=== PATIENT | female | born 1935 | race Caucasian/White ===

== ENCOUNTER 2016-10-28 11:07 | Outpatient (CLI) | payer MEDICARE, OTHER ==
[2016-10-28 11:40] LABS: Hemoglobin A1c 6.2 % (4.0-6.0)
[2016-10-28 11:58] LABS: ALT (SGPT) 17 U/L (0-55); AST (SGOT) 15 U/L (5-34); Albumin 3.3 g/dL (3.4-4.8); Alkaline Phosphatase 48 U/L (40-150); Anion Gap 13 mmol/L (10-20); BUN (Urea Nitrogen) 16 mg/dL (9.8-20.1); Bilirubin, Direct 0.3 mg/dL (0.1-0.3); Calc. Creatinine Clearance 0 mL/min (70-130); Calcium 9.1 mg/dL (7.8-10.44); Carbon Dioxide 31 mmol/L (23-31); Cardiac Risk 2.7 (Less than 4.5); Chloride 102 mmol/L (98-107); Cholesterol 149 mg/dL (< 200 Desired); Estimated GFR-MDRD 83; Glucose 134 mg/dL (83-110); HDL Cholesterol 55 mg/dL (>60 Neg Risk); LDL Cholesterol, Calculated 54 mg/dL; Potassium 3.8 mmol/L (3.5-5.1); Protein, Total 5.3 g/dL (5.8-8.1); Sodium 142 mmol/L (136-145); Triglycerides 202 mg/dL (Less than 150)
== END 2016-10-28 11:08 | disposition home or self-care (01) ==
LOC: MADLABBHPM 11:07
PROVIDERS: ATTEND Family Medicine
DX: E11.9 Type 2 diabetes mellitus without complications (principal)
CPT/HCPCS: 36415; 80048; 80061; 80076; 83036

== ENCOUNTER 2017-01-26 10:35 | Outpatient (CLI) | payer MEDICARE, OTHER ==
[2017-01-26 11:35] LABS: ALT (SGPT) 14 U/L (8-55); AST (SGOT) 18 U/L (5-34); Albumin 3.6 g/dL (3.4-4.8); Alkaline Phosphatase 69 U/L (40-150); Anion Gap 14 mmol/L (10-20); BUN (Urea Nitrogen) 12 mg/dL (9.8-20.1); Bilirubin, Direct 0.3 mg/dL (0.1-0.3); Bilirubin, Total 0.8 mg/dL (0.2-1.2); Calc. Creatinine Clearance 0 mL/min (70-130); Calcium 9.7 mg/dL (7.8-10.44); Carbon Dioxide 27 mmol/L (23-31); Cardiac Risk 3.7 (Less than 4.5); Chloride 103 mmol/L (98-107); Cholesterol 187 mg/dL (< 200 Desired); Estimated GFR-MDRD Greater than 90; Glucose 123 mg/dL (83-110); HDL Cholesterol 51 mg/dL (>60 Neg Risk); LDL Cholesterol, Calculated 108 mg/dL; Potassium 4.1 mmol/L (3.5-5.1); Protein, Total 5.9 g/dL (5.8-8.1); Sodium 140 mmol/L (136-145); Triglycerides 138 mg/dL (Less than 150)
[2017-01-26 11:36] LABS: Hemoglobin A1c 6.1 % (4.0-6.0)
== END 2017-01-26 10:36 | disposition home or self-care (01) ==
LOC: MADLABBHPM 10:35
PROVIDERS: ATTEND Family Medicine
DX: E11.9 Type 2 diabetes mellitus without complications (principal); E78.00 Pure hypercholesterolemia, unspecified
CPT/HCPCS: 36415; 80048; 80061; 80076; 83036

== ENCOUNTER 2017-11-25 12:17 | Inpatient (IN) | payer MEDICARE, OTHER ==
[2017-11-25] MEDS ORDERED: Acetaminophen ER (8hr) 650 MG TAB PO PRN ×2 (13:48→13:57)
[2017-11-25] MEDS ORDERED: traMADol HCl 50 MG TAB PO PRN ×3 (13:48→13:59)
[2017-11-25] MEDS: Fish Oil 1,000 MG CAP PO SCH ×2 (14:50→21:33)
[2017-11-25] MEDS: cloNIDine 0.1 MG TAB PO SCH ×2 (14:50→21:32)
[2017-11-25] MEDS: hydrALAZINE 25 MG TAB PO SCH ×2 (14:50→21:33)
[2017-11-25] MEDS ORDERED: Non-Formulary Item 1 EACH (Omega-3 Fatty Acids/Fish Oil [Omega 3 1,000 Mg Softgel] 1 CAP) PO SCH (15:00)
[2017-11-25] MEDS ORDERED: HYDRALAZINE HCL 25 MG PO SCH (15:00)
[2017-11-25] MEDS ORDERED: CLONIDINE HCL 0.2 MG PO SCH (15:00)
[2017-11-25] MEDS: Mometasone Furoate 120 PUFF 220 MCG INH SCH (17:46)
--- NOTE | 2017-11-25 18:33 | HP ---
DATE OF ADMISSION: Admitted to [facility] on 11/25/2017 CHIEF COMPLAINT: Weak. 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 The patient lives at home with her and is inde pendent of her ADLs. The patient had a fall on 11/03/2017. She slipped on a small patch of ice and landed on her right leg. She had immediate pain and swelling just above the knee. She has had a pre vious right total knee replacement years previously. The patient was taken to the emergency room and admitted at [facility] for supracondylar femur fracture. The patient underwent surgical re pair of this fracture by orthopedic surgeon, Dr. Corey Dickson on 11/03/2017. Patient underwent a 14- hole Synthes variable angle locking plate with placement of multiple screws. The patient tolerated t he procedure well and was placed at no weightbearing on the right leg and in a knee immobilizer that has to be worn all the time. The patient did very well in her postop period and was transferred to [facility] where she stayed from 11/09/2017 until 11/25/2017. The patient made go od progress where she was sitting up in a chair, walking very short distance with a walker with help, but was still at no weightbearing. She was still weak and her condition was such that she was still at high fall risk and did not feel like she could be safely managed at home with her as her primary caregiver. Patient has been admitted to [facility] for continued physica l therapy in an effort to improve her strength, general conditioning, her gait, and functional capabi lities. The patient was seen soon after her admission and she was able to relay to me the events of what had happened to her in the fall that had resulted from slipping on a small patch of ice. The patient poonam d she has done very well and is wearing the knee immobilizer all the time, including when showering. Patient will be seeing her surgeon, Dr. Dickson later this month for followup. PAST MEDICAL AND SURGICAL HISTORY: Hospitalized at [facility] for supracondylar femur fra cture of the right leg from 11/03/2017 to 11/09/2017 where she underwent an open reduction and restaurant management internship al fixation with a Synthes variable angle locking plate with multiple screws. She was then hospitali zed at [facility] from 11/09/2017 until 11/25/2017. The patient has diabetes type 2 that has been c ontrolled with diet alone. Her last hemoglobin A1c on 08/03/2017 was 6.0. She has COPD, generalized osteoarthritis, hypertension, hypercholesterolemia, spondylosis of the lumbar spine, diastolic dysfu nction with a previous history of episodes of congestive heart failure during hospitalization for WORK[employer]IST[employer] D acute exacerbation on 09/2016. Her echocardiogram then showed an ejection fraction of 55%. The konrad marquez has had a right total knee replacement in 12/2016, cyst removed from the right breast benign, l eft femoral head replacement on 12/2008. The patient has glaucoma. MEDICATIONS: Acetaminophen 325 mg 2 every 4 hours as needed, aspirin 81 mg daily, atorvastatin 20 mg daily, Lumigan 0.03% 1 drop in the eyes at bedtime, calcium carbonate 500 mg 2 daily, clonidine 0.2 mg t.i.d., Lovenox 40 mg subcu daily, fluticasone 2 puffs in each nostrum b.i.d., furosemide 40 mg da leandro, hydralazine 25 mg t.i.d. and previously at home was on 100 mg t.i.d., lisinopril 20 mg b.i.d., m etoprolol tartrate 100 mg b.i.d., [place] 3 fatty acid/fish oil 1 t.i.d., pantoprazole 40 mg daily, Sys tane eyedrops 1 drop in each eye daily, tramadol 50 mg 1-2 every 6 hours as needed for pain, PreserVi rohit 1 tab daily. ALLERGIES: NORVASC causes swelling; VICODIN causes nausea; Fentanyl, unknown cause; Meloxicam causes nausea, MORPHINE. REVIEW OF SYSTEMS: General: The patient does not think she has had any recent weight loss. She poonam d she has had no fever. Head and Neck: No complaints. Pulmonary: No complaints. Cardiovascular: No complaints. Gastrointestinal: No complaints. Genitourinary: No complaints. Musculoskeletal: The patient requires assistance with transfer as she can ambulate very short distance with assistanc e and a walker. She is nonweightbearing on the right leg. Prior to her admission and fractures, she was independent of all her ADLs. HABITS: Alcohol none. Tobacco none. SOCIAL HISTORY: Patient lives at home with her . CODE STATUS: FULL CODE. PHYSICAL EXAMINATION: GENERAL: Shows a very pleasant 82-year-old white female who is alert, oriented x3, appears very comf ortable, in no distress. VITAL SIGNS: Temperature 97.9, pulse 68, respirations 20, O2 saturation 94% on room air, blood press ure 131/63. Her weight is 204. Her height is 62 inches. HEAD: Normocephalic and atraumatic. EYES: Pupils are equal, round, and reactive. Sclerae nonicteric. EARS: Blocked by some cerumen. NOSE: Normal. MOUTH AND THROAT: Normal. NECK: Carotids are equal and strong, no bruits. Thyroid not enlarged. LUNGS: Clear. HEART: Regular rate. No murmurs. ABDOMEN: Soft with no organomegaly, nor areas of tenderness. EXTREMITIES: No edema. Her right leg has a long leg knee immobilizer. Nurses had taken this off gama garcia to photograph the incision. Her incision was healing well. The saw were removed 2 days ag o. There is no drainage, no redness. NEUROLOGIC: Patient is alert and oriented x3. She is weak in the right leg from the recent fracture . Otherwise, there is no focal weakness. IMPRESSION: 1. Generalized weakness. A. Requires assistance with ADLs. B. Complicated by gait abnormality with nonweightbearing on the right leg. C. Secondary to a fall and supracondylar fracture of the right femur with open reduction internal fi xation on 11/03/2017. 2. Supracondylar fracture of the right femur. A. Secondary to a fall on a patch of ice. B. Required open reduction internal fixation with a Synthes variable angle locking plate and multipl e screws on 11/03/[address] Corey Dickson, orthopedic surgeon. C. Mobilized in a long leg knee immobilizer. D. No weightbearing with the right leg. 3. Hypertension. 4. Chronic obstructive pulmonary disease. 5. Diabetes mellitus type 2. A. Diet controlled. Hemoglobin A1c of 6.0 on 08/03/2017. 6. Generalized osteoarthritis. 7. Hypercholesterolemia. 8. Diastolic dysfunction. A. No evidence of congestive heart failure. 9. Spondylosis of the lumbar spine. 10. Obesity. PLAN: The patient has been admitted to [facility] for purpose of continuation of physical therapy and occupational therapy. The patient is at no weightbearing on the right leg and her functional capabilities such that she cannot be safely managed in the home and feel like with fur ther therapy, fracture heals and she is allowed weightbearing that she showed marked and continued im provement. We will continue the deep venous thrombosis prophylaxis. Continue the knee immobilizer. The patient will see Dr. Dickson in follow up. Continue home medications. CODE STATUS: FULL CODE. See orders.
[2017-11-25] MEDS ORDERED: Non-Formulary Item 1 EACH (Metoprolol Tartrate [Lopressor] 100 MG) PO SCH (21:00)
[2017-11-25] MEDS ORDERED: Non-Formulary Item 1 EACH (Atorvastatin Calcium [Lipitor] 20 MG) PO SCH (21:00)
[2017-11-25] MEDS ORDERED: Non-Formulary Item 1 EACH (Bimatoprost [Lumigan 0.01% Ophth Soln] 1 DROP) EA EYE SCH (21:00)
[2017-11-25] MEDS ORDERED: FLUTICASONE PROPIONATE INH SCH (21:00)
[2017-11-25] MEDS ORDERED: Non-Formulary Item 1 EACH (Lisinopril [Lisinopril] 20 MG) PO SCH (21:00)
[2017-11-25] MEDS: Atorvastatin Calcium 10 MG TAB PO SCH (21:32)
[2017-11-25] MEDS: Lisinopril 10 MG TAB PO SCH (21:34)
[2017-11-25] MEDS: Latanoprost 0.005% Ophth Soln 2.5 ml Bottle EA EYE SCH (21:35)
[2017-11-25] MEDS: Metoprolol Tartrate 50 MG TAB PO SCH (21:36)
[2017-11-26 05:10] LABS: #Basophils 0.1 thou/uL (0.0-0.2); #Eosinphils 0.4 thou/uL (0.0-0.7); #Lymphocytes 2.7 thou/uL (1.20-3.40); #Monocytes 0.9 thou/uL (0.11-0.59); #Neutrophils 8.9 thou/uL (1.40-6.50); %Eosinophils 2.7 % (0.0-10.0); %Lymphocytes 20.9 % (21.0-51.0); %Monocytes 6.9 % (0.0-10.0); %Neutrophils 68.5 % (42.0-75.0); Hemoglobin 10.1 g/dL (12.0-16.0); Mean Corpuscular Hemoglobin 25.9 pg (27.0-31.0); Mean Corpuscular Volume 83.4 fl (81.0-99.0); Mean Platelet Volume 8.8 fL (7.4-10.4); Platelet Count 371 thou/uL (130-400); RBC Distribution Width 17.8 % (11.5-14.5); Red Blood Cell (RBC) Count 3.89 mill/uL (4.20-5.40)
[2017-11-26 05:24] LABS: ALT (SGPT) 14 U/L (8-55); AST (SGOT) 14 U/L (5-34); Albumin 3.2 g/dL (3.4-4.8); Alkaline Phosphatase 120 U/L (40-150); Anion Gap 10 mmol/L (10-20); BUN (Urea Nitrogen) 14 mg/dL (9.8-20.1); Bilirubin, Total 0.7 mg/dL (0.2-1.2); Calc. Creatinine Clearance 107 mL/min (70-130); Calcium 9.5 mg/dL (7.8-10.44); Carbon Dioxide 32 mmol/L (23-31); Chloride 105 mmol/L (98-107); Estimated GFR-MDRD Greater than 90; Globulin 2.7 g/dL (2.4-3.5); Glucose 127 mg/dL (83-110); Potassium 4.6 mmol/L (3.5-5.1); Protein, Total 5.9 g/dL (6.0-8.3); Sodium 142 mmol/L (136-145)
[2017-11-26] MEDS: cloNIDine 0.1 MG TAB PO SCH ×3 (09:41→21:00)
[2017-11-26] MEDS: Metoprolol Tartrate 50 MG TAB PO SCH ×2 (09:42→21:01)
[2017-11-26] MEDS: Aspirin 81 mg Enteric Coated Tablet PO SCH (09:42)
[2017-11-26] MEDS: hydrALAZINE 25 MG TAB PO SCH ×3 (09:43→21:02)
[2017-11-26] MEDS: Lisinopril 10 MG TAB PO SCH ×2 (09:43→21:01)
[2017-11-26] MEDS: Calcium Carbonate 500 MG ChewTAB PO SCH (09:43)
[2017-11-26] MEDS: Enoxaparin Sodium 40 MG/0.4 ML SYRINGE SC SCH (09:43)
[2017-11-26] MEDS: Fish Oil 1,000 MG CAP PO SCH ×3 (09:43→21:00)
[2017-11-26] MEDS: Furosemide 40 MG TAB PO SCH (09:43)
[2017-11-26] MEDS ORDERED: PEG EA EYE SCH (12:00)
[2017-11-26] MEDS ORDERED: EAC EA EYE SCH (12:00)
[2017-11-26] MEDS ORDERED: [UNRECOGNIZED DRUG - OTHER] EA EYE SCH (12:00)
[2017-11-26] MEDS ORDERED: PROPYLENE GLYCOL EA EYE SCH (12:00)
[2017-11-26] MEDS: Polyethylene Glycol OPTH DROP 15 ML BOT EA EYE SCH (12:20)
[2017-11-26 15:54] LABS: Hemoglobin A1c 5.6 % (4.0-6.0)
[2017-11-26] MEDS: Atorvastatin Calcium 10 MG TAB PO SCH (21:00)
[2017-11-26] MEDS: Latanoprost 0.005% Ophth Soln 2.5 ml Bottle EA EYE SCH (21:02)
[2017-11-27] MEDS: Enoxaparin Sodium 40 MG/0.4 ML SYRINGE SC SCH (08:11)
[2017-11-27] MEDS: Fish Oil 1,000 MG CAP PO SCH ×3 (08:12→20:22)
[2017-11-27] MEDS: Furosemide 40 MG TAB PO SCH (08:12)
[2017-11-27] MEDS: Aspirin 81 mg Enteric Coated Tablet PO SCH (08:12)
[2017-11-27] MEDS: Calcium Carbonate 500 MG ChewTAB PO SCH (08:13)
[2017-11-27] MEDS: Lisinopril 10 MG TAB PO SCH ×2 (08:13→20:23)
[2017-11-27] MEDS: Metoprolol Tartrate 50 MG TAB PO SCH ×2 (08:14→20:22)
[2017-11-27] MEDS: hydrALAZINE 25 MG TAB PO SCH ×3 (08:14→20:22)
[2017-11-27] MEDS: cloNIDine 0.1 MG TAB PO SCH ×3 (08:14→20:22)
[2017-11-27] MEDS: Polyethylene Glycol OPTH DROP 15 ML BOT EA EYE SCH (12:09)
[2017-11-27] MEDS: Mometasone Furoate 120 PUFF 220 MCG INH SCH ×2 (18:40→18:44)
[2017-11-27] MEDS: Atorvastatin Calcium 10 MG TAB PO SCH (20:22)
[2017-11-27] MEDS: Latanoprost 0.005% Ophth Soln 2.5 ml Bottle EA EYE SCH (20:23)
--- NOTE | 2017-11-28 08:05 | PRG ---
DATE OF SERVICE: 11/28/2017 SUBJECTIVE: The patient said she is feeling good this morning. She had a good night. Yesterday, jakub fuentes got up, was assisted up in a Yamileth chair and was able to roll around the facility. The patient's pa in is controlled. OBJECTIVE: The patient is sitting up in bed. She is alert, appears very comfortable in no distress. Her temperature 98.6, pulse 69, respirations 16, O2 sat 94% on room air, blood pressure 146/65. Micaela ngs are clear. Heart, regular rate. Lower extremities, there is no edema. Right leg is immobilized in a long leg knee immobilizer. Her FBS on the morning of 11/26/2017 was 127. Hemoglobin A1c 5.6. ASSESSMENT: 1. Generalized weakness. A. Requires assistance with ADLs. B. Complicated by gait abnormality with nonweightbearing on the right leg. C. Secondary to a fall and supracondylar fracture of the right femur with open reduction internal fi xation on 11/03/2017. D. Improved as of 11/28/2017. 2. Supracondylar fracture of the right femur. A. Secondary to a fall on a patch of ice. B. Required open reduction internal fixation with a Synthes variable angle locking plate and multipl e screws on 11/03/[address] Corey Dickson, orthopedic surgeon. C. Using a long leg knee immobilizer. D. No weightbearing with the right leg. 3. Hypertension. 4. Chronic obstructive pulmonary disease. 5. Diabetes mellitus type 2. A. Diet controlled. Hemoglobin A1c 5.6 as of 11/26/2017. 6. Generalized osteoarthritis. 7. Hypercholesterolemia. 8. Diastolic dysfunction. A. No evidence of congestive heart failure. 9. Spondylosis of the lumbar spine. 10. Obesity. PLAN: Continue present care. Continue PT and OT.
[2017-11-28] MEDS: Aspirin 81 mg Enteric Coated Tablet PO SCH (09:57)
[2017-11-28] MEDS: cloNIDine 0.1 MG TAB PO SCH ×3 (09:57→20:35)
[2017-11-28] MEDS: Calcium Carbonate 500 MG ChewTAB PO SCH (09:57)
[2017-11-28] MEDS: hydrALAZINE 25 MG TAB PO SCH ×3 (09:57→20:36)
[2017-11-28] MEDS: Furosemide 40 MG TAB PO SCH (09:58)
[2017-11-28] MEDS: Lisinopril 10 MG TAB PO SCH ×2 (09:58→20:35)
[2017-11-28] MEDS: Fish Oil 1,000 MG CAP PO SCH ×3 (09:58→20:35)
[2017-11-28] MEDS: Metoprolol Tartrate 50 MG TAB PO SCH ×2 (09:58→20:35)
[2017-11-28] MEDS: Enoxaparin Sodium 40 MG/0.4 ML SYRINGE SC SCH (09:59)
[2017-11-28] MEDS: Polyethylene Glycol OPTH DROP 15 ML BOT EA EYE SCH (13:32)
[2017-11-28] MEDS: Mometasone Furoate 120 PUFF 220 MCG INH SCH ×2 (18:12→18:13)
[2017-11-28] MEDS: Latanoprost 0.005% Ophth Soln 2.5 ml Bottle EA EYE SCH (20:35)
[2017-11-28] MEDS: Atorvastatin Calcium 10 MG TAB PO SCH (20:35)
[2017-11-29] MEDS: Fish Oil 1,000 MG CAP PO SCH ×3 (08:35→20:40)
[2017-11-29] MEDS: Vit A,C & E/Lutein/Minerals Tablet PO SCH ×2 (08:36→20:40)
[2017-11-29] MEDS: Calcium Carbonate 500 MG ChewTAB PO SCH (08:36)
[2017-11-29] MEDS: cloNIDine 0.1 MG TAB PO SCH ×3 (08:36→20:41)
[2017-11-29] MEDS: Aspirin 81 mg Enteric Coated Tablet PO SCH (08:36)
[2017-11-29] MEDS: Metoprolol Tartrate 50 MG TAB PO SCH ×2 (08:36→20:40)
[2017-11-29] MEDS: Furosemide 40 MG TAB PO SCH (08:36)
[2017-11-29] MEDS: hydrALAZINE 25 MG TAB PO SCH ×3 (08:37→20:41)
[2017-11-29] MEDS: Enoxaparin Sodium 40 MG/0.4 ML SYRINGE SC SCH (08:37)
[2017-11-29] MEDS: Lisinopril 10 MG TAB PO SCH ×2 (08:37→20:41)
[2017-11-29] MEDS: Ketoconazole 2% Cream 15 gm Tube TOP SCH (08:40)
--- NOTE | 2017-11-29 08:51 | PRG ---
DATE OF SERVICE: 11/29/2017 SUBJECTIVE: The patient said she has been doing fine. She said ordinarily she takes this PreserVisi on vitamin twice a day at home. She has not been receiving this while in the hospital. The patient also says that home she uses ketoconazole cream on her face for seborrheic dermatitis. She is not re ceiving this and her face is starting to get a little scaly. The patient is not able to walk any sin ce she is nonweightbearing on the right leg. She is doing a lot more upper body strengthening up in a chair for longer periods and is helping with transferring, pivoting on the left leg. She is feelin g stronger. OBJECTIVE: The patient is sitting up in a wheelchair in the Physical Therapy Department doing some u pper body strengthening. She is alert, appears very comfortable in no distress. Her temperature is 97.9, pulse 68, respirations 18, O2 sat 96%, blood pressure 154/67. Lungs are clear. Heart, regular rate. Extremities; there is no edema. The patient has a long leg knee immobilizer on the right leg. Skin; the patient's face has a little scaling, some over the forehead and some on the nasolabial fold from a seborrheic dermatitis. ASSESSMENT: 1. Generalized weakness. A. Requires assistance with ADLs. B. Complicated by gait abnormality with nonweightbearing on the right leg. C. Secondary to a fall and supracondylar fracture of the right femur with open reduction interna l fixation on 11/03/2017. D. Improved as of 11/29/2017. 2. Supracondylar fracture of the right femur. A. Secondary to a fall on a patch of ice. B. Required open reduction internal fixation with a Synthes variable angle locking plate and multiple screws on 11/03/[address] Corey Dickson, orthopedic surgeon. C. Using a long leg knee immobilizer. D. No weightbearing with the right leg. 3. Hypertension. 4. Chronic obstructive pulmonary disease. 5. Diabetes mellitus type 2. A. Diet controlled. Hemoglobin A1c 5.6 as of 11/26/2017. 6. Generalized osteoarthritis. 7. Hypercholesterolemia. 8. Diastolic dysfunction. A. No evidence of acute congestive heart failure as of 11/29/2017. 9. Spondylosis of the lumbar spine. 10. Obesity. 11. Seborrheic dermatitis. PLAN: Continue physical therapy. Continue present care. Will restart the patient's PreserVision vi tamins twice a day. We will also place the patient back on the ketaconazole cream to her face daily.
[2017-11-29] MEDS: Polyethylene Glycol OPTH DROP 15 ML BOT EA EYE SCH (12:02)
[2017-11-29] MEDS: Mometasone Furoate 120 PUFF 220 MCG INH SCH (18:07)
[2017-11-29] MEDS: Latanoprost 0.005% Ophth Soln 2.5 ml Bottle EA EYE SCH (20:40)
[2017-11-29] MEDS: Atorvastatin Calcium 10 MG TAB PO SCH (20:40)
[2017-11-30] MEDS: Calcium Carbonate 500 MG ChewTAB PO SCH (07:57)
[2017-11-30] MEDS: Lisinopril 10 MG TAB PO SCH ×2 (07:58→20:38)
[2017-11-30] MEDS: cloNIDine 0.1 MG TAB PO SCH ×3 (07:58→20:39)
[2017-11-30] MEDS: hydrALAZINE 25 MG TAB PO SCH ×3 (07:58→20:39)
[2017-11-30] MEDS: Aspirin 81 mg Enteric Coated Tablet PO SCH (07:59)
[2017-11-30] MEDS: Furosemide 40 MG TAB PO SCH (07:59)
[2017-11-30] MEDS: Vit A,C & E/Lutein/Minerals Tablet PO SCH ×2 (07:59→20:39)
[2017-11-30] MEDS: Metoprolol Tartrate 50 MG TAB PO SCH ×2 (07:59→20:37)
[2017-11-30] MEDS: Fish Oil 1,000 MG CAP PO SCH ×3 (07:59→20:36)
[2017-11-30] MEDS: Enoxaparin Sodium 40 MG/0.4 ML SYRINGE SC SCH (07:59)
[2017-11-30] MEDS: Ketoconazole 2% Cream 15 gm Tube TOP SCH (08:00)
[2017-11-30] MEDS: Polyethylene Glycol OPTH DROP 15 ML BOT EA EYE SCH (11:48)
[2017-11-30] MEDS: Mometasone Furoate 120 PUFF 220 MCG INH SCH (17:37)
[2017-11-30] MEDS: Atorvastatin Calcium 10 MG TAB PO SCH (20:37)
[2017-11-30] MEDS: Latanoprost 0.005% Ophth Soln 2.5 ml Bottle EA EYE SCH (20:40)
--- NOTE | 2017-12-01 08:36 | PRG ---
DATE OF SERVICE: 12/01/2017 SUBJECTIVE: The patient said she is doing good. She is getting stronger. She began working out ROXIMITY with her upper extremities. There is still no weightbearing on the right leg. Her leg is not hurt ing her. She is walking very short distance with a rolling walker. No weightbearing on the right le g, but requires maximum assistance and only has gone up to 6 feet and this is not every day, but her general strength has improved. OBJECTIVE: The patient is sitting up in a chair with her right leg propped up with a knee immobilize r own. She is alert, talkative, appears very comfortable in no distress. Her temperature is 97.0, p ulse 61, respirations 22, O2 sat 94% on room air, blood pressure 114/57. Her lungs are clear. Heart , regular rate. Right leg, there is no edema. The patient has her long leg knee immobilizer on. ASSESSMENT: 1. Generalized weakness. A. Requires assistance with ADLs. B. Complicated by gait abnormality with nonweightbearing on the right leg. C. Secondary to a fall and supracondylar fracture of the right femur with open reduction interna l fixation on 11/03/2017. D. Overall strength is improving, but still no weightbearing on the right leg and only able to a mbulate just a few feet with a rolling walker and maximum assistance as of 12/01/2017. 2. Supracondylar fracture of the right femur. A. Secondary to a fall on a patch of ice. B. Required open reduction internal fixation with a Synthes variable angle locking plate and multiple screws on 11/03/[address] Corey Dickson, orthopedic surgeon. C. Using a long leg knee immobilizer. D. No weightbearing with the right leg. 3. Hypertension. 4. Chronic obstructive pulmonary disease. 5. Diabetes mellitus type 2. A. Diet controlled. Hemoglobin A1c 5.6 as of 11/26/2017. 6. Generalized osteoarthritis. 7. Hypercholesterolemia. 8. Diastolic dysfunction. A. No evidence of acute congestive heart failure as of 11/29/2017. 9. Spondylosis of the lumbar spine. 10. Obesity. 11. Seborrheic dermatitis. PLAN: Continue present care. Continue physical therapy. The patient is due to be rechecked by orth opedic surgeon in about 2 weeks.
[2017-12-01] MEDS: Calcium Carbonate 500 MG ChewTAB PO SCH (08:56)
[2017-12-01] MEDS: Vit A,C & E/Lutein/Minerals Tablet PO SCH ×2 (08:57→20:45)
[2017-12-01] MEDS: hydrALAZINE 25 MG TAB PO SCH ×3 (08:57→20:47)
[2017-12-01] MEDS: Metoprolol Tartrate 50 MG TAB PO SCH ×2 (08:57→20:46)
[2017-12-01] MEDS: Aspirin 81 mg Enteric Coated Tablet PO SCH (08:57)
[2017-12-01] MEDS: Lisinopril 10 MG TAB PO SCH ×2 (08:58→20:46)
[2017-12-01] MEDS: cloNIDine 0.1 MG TAB PO SCH ×3 (08:58→20:44)
[2017-12-01] MEDS: Fish Oil 1,000 MG CAP PO SCH ×3 (08:58→20:47)
[2017-12-01] MEDS: Furosemide 40 MG TAB PO SCH (08:58)
[2017-12-01] MEDS: Ketoconazole 2% Cream 15 gm Tube TOP SCH (08:59)
[2017-12-01] MEDS: Enoxaparin Sodium 40 MG/0.4 ML SYRINGE SC SCH (08:59)
[2017-12-01] MEDS: Polyethylene Glycol OPTH DROP 15 ML BOT EA EYE SCH (13:16)
[2017-12-01] MEDS: Mometasone Furoate 120 PUFF 220 MCG INH SCH (18:02)
[2017-12-01] MEDS: Atorvastatin Calcium 10 MG TAB PO SCH (20:45)
[2017-12-01] MEDS: Latanoprost 0.005% Ophth Soln 2.5 ml Bottle EA EYE SCH (20:50)
[2017-12-02] MEDS: Calcium Carbonate 500 MG ChewTAB PO SCH (08:27)
[2017-12-02] MEDS: Vit A,C & E/Lutein/Minerals Tablet PO SCH ×2 (08:28→20:35)
[2017-12-02] MEDS: cloNIDine 0.1 MG TAB PO SCH ×3 (08:28→20:36)
[2017-12-02] MEDS: Fish Oil 1,000 MG CAP PO SCH ×3 (08:28→20:34)
[2017-12-02] MEDS: Aspirin 81 mg Enteric Coated Tablet PO SCH (08:28)
[2017-12-02] MEDS: Lisinopril 10 MG TAB PO SCH ×2 (08:28→20:35)
[2017-12-02] MEDS: Metoprolol Tartrate 50 MG TAB PO SCH ×2 (08:29→20:37)
[2017-12-02] MEDS: Enoxaparin Sodium 40 MG/0.4 ML SYRINGE SC SCH (08:29)
[2017-12-02] MEDS: hydrALAZINE 25 MG TAB PO SCH ×3 (08:29→20:37)
[2017-12-02] MEDS: Furosemide 40 MG TAB PO SCH (08:29)
[2017-12-02] MEDS: Ketoconazole 2% Cream 15 gm Tube TOP SCH (08:30)
--- NOTE | 2017-12-02 09:50 | PRG ---
DATE OF SERVICE: 12/02/2017 SUBJECTIVE: The patient says she is doing good. She is doing better with her upper body strengtheni ng. She is still at no weightbearing on the right leg, so her ability to walk is severely impaired a t present. Her general strength though has improved. OBJECTIVE: The patient is sitting up in wheelchair. She is comfortable in no distress. Her temper ature 98.2, pulse 69, respirations 16, O2 sat 94% on room air, blood pressure 146/65. Lungs are clear. Heart, regular rate. Lower extremities, no edema. Right leg is in a long leg knee immobilizer, it fits well. ASSESSMENT: 1. Generalized weakness. A. Requires assistance with ADLs. B. Complicated by gait abnormality with nonweightbearing on the right leg. C. Secondary to a fall and supracondylar fracture of the right femur with open reduction interna l fixation on 11/03/2017. D. Overall strength is improving, but still no weightbearing on the right leg and only able to a mbulate just a few feet with a rolling walker and maximum assistance as of 12/02/2017. 2. Supracondylar fracture of the right femur. A. Secondary to a fall on a patch of ice. B. Required open reduction internal fixation with a Synthes variable angle locking plate and multiple screws on 11/03/[address] Corey Dickson, orthopedic surgeon. C. Using a long leg knee immobilizer. D. No weightbearing with the right leg. 3. Hypertension. 4. Chronic obstructive pulmonary disease. 5. Diabetes mellitus type 2. A. Diet controlled. Hemoglobin A1c 5.6 as of 11/26/2017. 6. Generalized osteoarthritis. 7. Hypercholesterolemia. 8. Diastolic dysfunction. A. No evidence of acute congestive heart failure as of 12/02/2017. 9. Spondylosis of the lumbar spine. 10. Obesity. 11. Seborrheic dermatitis. PLAN: Continue physical therapy. The patient is scheduled to see Dr. Dickson in follow up on the .
[2017-12-02] MEDS: Polyethylene Glycol OPTH DROP 15 ML BOT EA EYE SCH (12:03)
[2017-12-02] MEDS: Mometasone Furoate 120 PUFF 220 MCG INH SCH (17:43)
[2017-12-02] MEDS: Atorvastatin Calcium 10 MG TAB PO SCH (20:34)
[2017-12-02] MEDS: Latanoprost 0.005% Ophth Soln 2.5 ml Bottle EA EYE SCH (20:38)
[2017-12-03] MEDS: Aspirin 81 mg Enteric Coated Tablet PO SCH (08:38)
[2017-12-03] MEDS: Furosemide 40 MG TAB PO SCH (08:38)
[2017-12-03] MEDS: hydrALAZINE 25 MG TAB PO SCH ×3 (08:39→20:44)
[2017-12-03] MEDS: Metoprolol Tartrate 50 MG TAB PO SCH ×2 (08:39→20:43)
[2017-12-03] MEDS: Fish Oil 1,000 MG CAP PO SCH ×3 (08:39→20:42)
[2017-12-03] MEDS: cloNIDine 0.1 MG TAB PO SCH ×3 (08:39→20:44)
[2017-12-03] MEDS: Calcium Carbonate 500 MG ChewTAB PO SCH (08:42)
[2017-12-03] MEDS: Vit A,C & E/Lutein/Minerals Tablet PO SCH ×2 (08:42→20:42)
[2017-12-03] MEDS: Ketoconazole 2% Cream 15 gm Tube TOP SCH (08:42)
[2017-12-03] MEDS: Lisinopril 10 MG TAB PO SCH ×2 (08:43→20:43)
[2017-12-03] MEDS: Enoxaparin Sodium 40 MG/0.4 ML SYRINGE SC SCH (08:43)
[2017-12-03] MEDS: Polyethylene Glycol OPTH DROP 15 ML BOT EA EYE SCH (11:43)
[2017-12-03] MEDS: Mometasone Furoate 120 PUFF 220 MCG INH SCH (18:04)
[2017-12-03] MEDS: Atorvastatin Calcium 10 MG TAB PO SCH (20:42)
[2017-12-03] MEDS: Latanoprost 0.005% Ophth Soln 2.5 ml Bottle EA EYE SCH (20:45)
[2017-12-04] MEDS: Calcium Carbonate 500 MG ChewTAB PO SCH (08:41)
[2017-12-04] MEDS: Lisinopril 10 MG TAB PO SCH ×2 (08:41→20:06)
[2017-12-04] MEDS: Enoxaparin Sodium 40 MG/0.4 ML SYRINGE SC SCH (08:41)
[2017-12-04] MEDS: Ketoconazole 2% Cream 15 gm Tube TOP SCH (08:41)
[2017-12-04] MEDS: Aspirin 81 mg Enteric Coated Tablet PO SCH (08:42)
[2017-12-04] MEDS: Furosemide 40 MG TAB PO SCH (08:42)
[2017-12-04] MEDS: cloNIDine 0.1 MG TAB PO SCH ×3 (08:42→20:06)
[2017-12-04] MEDS: Metoprolol Tartrate 50 MG TAB PO SCH ×2 (08:42→20:06)
[2017-12-04] MEDS: hydrALAZINE 25 MG TAB PO SCH ×3 (08:42→20:05)
[2017-12-04] MEDS: Vit A,C & E/Lutein/Minerals Tablet PO SCH ×2 (08:42→20:06)
[2017-12-04] MEDS: Fish Oil 1,000 MG CAP PO SCH ×3 (08:43→20:06)
[2017-12-04] MEDS: Polyethylene Glycol OPTH DROP 15 ML BOT EA EYE SCH (11:54)
[2017-12-04] MEDS: Mometasone Furoate 120 PUFF 220 MCG INH SCH (18:02)
[2017-12-04] MEDS: Atorvastatin Calcium 10 MG TAB PO SCH (20:06)
[2017-12-04] MEDS: Latanoprost 0.005% Ophth Soln 2.5 ml Bottle EA EYE SCH (20:07)
[2017-12-05] MEDS: Calcium Carbonate 500 MG ChewTAB PO SCH (08:09)
--- NOTE | 2017-12-05 09:22 | PRG ---
DATE OF SERVICE: 12/05/2017 SUBJECTIVE: The patient thinks she is doing fine. She still at nonweightbearing on the right leg an d still wears her long leg knee immobilizer. Nurses reported that she was complaining of some burnin g with urination. A UA will be checked. The patient due to see Dr. Dickson back in follow up next we ek. OBJECTIVE: The patient is lying in bed, looks very comfortable, in no distress. Her vital signs mira ws a temperature of 98.3, blood pressure 126/65, pulse 71, respirations 20, O2 sat 93% on room air. Lungs are clear. Heart, regular rate. Extremities, no edema. The patient wearing her long leg knee immobilizer. ASSESSMENT: 1. Generalized weakness. A. Requires assistance with ADLs. B. Complicated by gait abnormality with nonweightbearing on the right leg. C. Secondary to a fall and supracondylar fracture of the right femur with open reduction interna l fixation on 11/03/2017. D. Overall strength is improving, but still no weightbearing on the right leg and only able to a mbulate just a few feet with a rolling walker and maximum assistance as of 12/05/2017. 2. Supracondylar fracture of the right femur. A. Secondary to a fall on a patch of ice. B. Required open reduction internal fixation with a Synthes variable angle locking plate and multiple screws on 11/03/[address] Corey Dickson, orthopedic surgeon. C. Using a long leg knee immobilizer. D. No weightbearing with the right leg. 3. Hypertension. 4. Chronic obstructive pulmonary disease. 5. Diabetes mellitus type 2. A. Diet controlled. Hemoglobin A1c 5.6 as of 11/26/2017. 6. Generalized osteoarthritis. 7. Hypercholesterolemia. 8. Diastolic dysfunction. A. No evidence of acute congestive heart failure as of 12/05/2017. 9. Spondylosis of the lumbar spine. 10. Obesity. 11. Seborrheic dermatitis. PLAN: Continue physical therapy. The patient due to see Dr. Dickson in followup on 12/14/2017. Will check a UA.
[2017-12-05] MEDS: Aspirin 81 mg Enteric Coated Tablet PO SCH (09:39)
[2017-12-05] MEDS: cloNIDine 0.1 MG TAB PO SCH ×3 (09:39→20:35)
[2017-12-05] MEDS: Enoxaparin Sodium 40 MG/0.4 ML SYRINGE SC SCH (09:39)
[2017-12-05] MEDS: Furosemide 40 MG TAB PO SCH (09:40)
[2017-12-05] MEDS: Fish Oil 1,000 MG CAP PO SCH ×3 (09:40→20:17)
[2017-12-05] MEDS: Ketoconazole 2% Cream 15 gm Tube TOP SCH (09:41)
[2017-12-05] MEDS: hydrALAZINE 25 MG TAB PO SCH ×3 (09:41→20:36)
[2017-12-05] MEDS: Lisinopril 10 MG TAB PO SCH ×2 (09:41→20:15)
[2017-12-05] MEDS: Metoprolol Tartrate 50 MG TAB PO SCH ×2 (09:42→20:36)
[2017-12-05] MEDS: Vit A,C & E/Lutein/Minerals Tablet PO SCH ×2 (09:43→20:15)
[2017-12-05] MEDS: Polyethylene Glycol OPTH DROP 15 ML BOT EA EYE SCH (12:00)
[2017-12-05 14:56] LABS: Bilirubin Negative (Negative); Blood, Urine Small (Negative); Clarity Hazy (Clear); Glucose, Urine (Dipstick) Negative (Negative); Leukocyte Moderate (Negative); Nitrite Negative (Negative); Protein, Urine (Dipstick) 100 mg/dL (Neg-Trace); Urobilinogen 0.2 mg/dL (0.2-1.0)
[2017-12-05 14:59] LABS: Bacteria/HPF 1+ HPF (None Seen); RBC/HPF 0-3 HPF (0-3); Squamous Epithelial 0-3 HPF (0-3)
[2017-12-05] MEDS: Mometasone Furoate 120 PUFF 220 MCG INH SCH (18:13)
[2017-12-05] MEDS: Latanoprost 0.005% Ophth Soln 2.5 ml Bottle EA EYE SCH (20:18)
[2017-12-05] MEDS: Atorvastatin Calcium 10 MG TAB PO SCH (20:34)
[2017-12-06] MEDS: Metoprolol Tartrate 50 MG TAB PO SCH ×2 (08:39→20:07)
[2017-12-06] MEDS: Aspirin 81 mg Enteric Coated Tablet PO SCH (08:39)
[2017-12-06] MEDS: Calcium Carbonate 500 MG ChewTAB PO SCH (08:39)
[2017-12-06] MEDS: Clotrimazole 1% Cream 15 GM TUBE TOP SCH (08:39)
[2017-12-06] MEDS: Fish Oil 1,000 MG CAP PO SCH ×3 (08:40→20:06)
[2017-12-06] MEDS: Furosemide 40 MG TAB PO SCH (08:40)
[2017-12-06] MEDS: cloNIDine 0.1 MG TAB PO SCH ×3 (08:40→20:09)
[2017-12-06] MEDS: Vit A,C & E/Lutein/Minerals Tablet PO SCH ×2 (08:40→20:06)
[2017-12-06] MEDS: Lisinopril 10 MG TAB PO SCH ×2 (08:40→20:07)
[2017-12-06] MEDS: Enoxaparin Sodium 40 MG/0.4 ML SYRINGE SC SCH (08:41)
[2017-12-06] MEDS: hydrALAZINE 25 MG TAB PO SCH ×3 (08:41→20:09)
[2017-12-06] MEDS: Ketoconazole 2% Cream 15 gm Tube TOP SCH (08:41)
[2017-12-06] MEDS: Polyethylene Glycol OPTH DROP 15 ML BOT EA EYE SCH (12:35)
[2017-12-06] MEDS: Mometasone Furoate 120 PUFF 220 MCG INH SCH (18:06)
[2017-12-06] MEDS: Atorvastatin Calcium 10 MG TAB PO SCH (20:08)
[2017-12-06] MEDS: Latanoprost 0.005% Ophth Soln 2.5 ml Bottle EA EYE SCH (20:10)
[2017-12-06] MEDS ORDERED: cloNIDine 0.1 MG TAB PO SCH (20:20)
[2017-12-07] MEDS: Acetaminophen 325 MG TAB PO PRN (04:44)
[2017-12-07] MEDS: Calcium Carbonate 500 MG ChewTAB PO SCH (08:04)
[2017-12-07] MEDS: Aspirin 81 mg Enteric Coated Tablet PO SCH (08:05)
[2017-12-07] MEDS: cloNIDine 0.1 MG TAB PO SCH ×3 (08:05→21:46)
[2017-12-07] MEDS: Clotrimazole 1% Cream 15 GM TUBE TOP SCH (08:06)
[2017-12-07] MEDS: Fish Oil 1,000 MG CAP PO SCH ×3 (08:07→21:46)
[2017-12-07] MEDS: Enoxaparin Sodium 40 MG/0.4 ML SYRINGE SC SCH (08:07)
[2017-12-07] MEDS: Ketoconazole 2% Cream 15 gm Tube TOP SCH (08:08)
[2017-12-07] MEDS: Furosemide 40 MG TAB PO SCH (08:08)
[2017-12-07] MEDS: hydrALAZINE 25 MG TAB PO SCH ×3 (08:08→21:46)
[2017-12-07] MEDS: Lisinopril 10 MG TAB PO SCH ×2 (08:09→21:47)
[2017-12-07] MEDS: Vit A,C & E/Lutein/Minerals Tablet PO SCH ×2 (08:10→21:48)
[2017-12-07] MEDS: Metoprolol Tartrate 50 MG TAB PO SCH ×2 (08:10→21:47)
--- NOTE | 2017-12-07 08:38 | PRG ---
DATE OF SERVICE: 12/07/2017 SUBJECTIVE: The patient said she is making good advancement with her upper extremity strength. She is working with physical therapy, but remains nonweightbearing with the right leg with her long leg k nee immobilizer that she wears. She is complaining of some pain in the right hand in the area of the first GROUP HOME joint. OBJECTIVE: The patient is sitting up in bed, alert, talkative, appears in no distress. Her temperat ure is 98, pulse 66, respirations 22, O2 sat 95% on room air, blood pressure 149/67. Lungs are clear . Heart, regular rate. Lower extremities, no edema. Right hand, there is full range of motion. Sh e is a little tender over the first GROUP HOME joint secondary to arthritis. ASSESSMENT: 1. Generalized weakness. A. Requires assistance with ADLs. B. Complicated by gait abnormality with nonweightbearing on the right leg. C. Secondary to a fall and supracondylar fracture of the right femur with open reduction interna l fixation on 11/03/2017. D. Overall strength improving. Patient upper body strength improving, endurance improving. She remains at no weightbearing on the right leg as of 12/07/2017. 2. Supracondylar fracture of the right femur. A. Secondary to a fall on a patch of ice. B. Required open reduction internal fixation with a Synthes variable angle locking plate and multiple screws on 11/03/[address] Corey Dickson, orthopedic surgeon. C. Using a long leg knee immobilizer. D. No weightbearing with the right leg. 3. Hypertension. 4. Chronic obstructive pulmonary disease. 5. Diabetes mellitus type 2. A. Diet controlled. Hemoglobin A1c 5.6 as of 11/26/2017. 6. Generalized osteoarthritis. 7. Hypercholesterolemia. 8. Diastolic dysfunction. A. No evidence of acute congestive heart failure as of 12/07/2017. 9. Spondylosis of the lumbar spine. 10. Obesity. 11. Seborrheic dermatitis. 12. Pain in the right hand secondary to arthritis in the first GROUP HOME joint. PLAN: Continue physical therapy. The patient due to see Dr. Dickson, Orthopedic surgeon, next week o n 12/14/2017. We will utilize Gaymar pump for moist heat to the left hand as she desires.
[2017-12-07] MEDS: Polyethylene Glycol OPTH DROP 15 ML BOT EA EYE SCH (12:23)
[2017-12-07] MEDS: Mometasone Furoate 120 PUFF 220 MCG INH SCH (18:32)
[2017-12-07] MEDS: Atorvastatin Calcium 10 MG TAB PO SCH (21:45)
[2017-12-07] MEDS: Latanoprost 0.005% Ophth Soln 2.5 ml Bottle EA EYE SCH (21:46)
[2017-12-08 05:11] LABS: #Basophils 0.1 thou/uL (0.0-0.2); #Eosinphils 0.4 thou/uL (0.0-0.7); #Lymphocytes 3.1 thou/uL (1.20-3.40); #Monocytes 0.9 thou/uL (0.11-0.59); #Neutrophils 9.9 thou/uL (1.40-6.50); %Basophils 0.8 % (0.0-1.0); %Eosinophils 2.5 % (0.0-10.0); %Lymphocytes 21.6 % (21.0-51.0); %Monocytes 6.3 % (0.0-10.0); %Neutrophils 68.7 % (42.0-75.0); Hemoglobin 10.7 g/dL (12.0-16.0); Mean Corpuscular Hemoglobin 25.4 pg (27.0-31.0); Mean Platelet Volume 8.9 fL (7.4-10.4); Platelet Count 190 thou/uL (130-400); RBC Distribution Width 16.7 % (11.5-14.5); Red Blood Cell (RBC) Count 4.21 mill/uL (4.20-5.40); White Blood Cell (WBC) Count 14.5 thou/uL (4.8-10.8)
[2017-12-08 05:21] LABS: Anion Gap 11 mmol/L (10-20); BUN (Urea Nitrogen) 16 mg/dL (9.8-20.1); Calc. Creatinine Clearance 0 mL/min (70-130); Calcium 9.7 mg/dL (7.8-10.44); Carbon Dioxide 32 mmol/L (23-31); Chloride 102 mmol/L (98-107); Estimated GFR-MDRD Greater than 90; Glucose 130 mg/dL (83-110); Sodium 141 mmol/L (136-145)
[2017-12-08] MEDS: Phenazopyridine HCl 97.5 MG TABLET PO SCH ×3 (08:40→20:24)
[2017-12-08] MEDS: Cipro 250 MG TAB PO SCH ×2 (08:40→20:25)
[2017-12-08] MEDS: Lisinopril 10 MG TAB PO SCH ×2 (08:41→20:28)
[2017-12-08] MEDS: cloNIDine 0.1 MG TAB PO SCH ×3 (08:42→20:26)
[2017-12-08] MEDS: hydrALAZINE 25 MG TAB PO SCH ×3 (08:42→20:26)
[2017-12-08] MEDS: Aspirin 81 mg Enteric Coated Tablet PO SCH (08:42)
[2017-12-08] MEDS: Calcium Carbonate 500 MG ChewTAB PO SCH (08:42)
[2017-12-08] MEDS: Metoprolol Tartrate 50 MG TAB PO SCH ×2 (08:42→20:26)
[2017-12-08] MEDS: Furosemide 40 MG TAB PO SCH (08:42)
[2017-12-08] MEDS: Vit A,C & E/Lutein/Minerals Tablet PO SCH ×2 (08:42→20:25)
[2017-12-08] MEDS: Fish Oil 1,000 MG CAP PO SCH ×3 (08:42→20:26)
[2017-12-08] MEDS: Clotrimazole 1% Cream 15 GM TUBE TOP SCH (08:43)
[2017-12-08] MEDS: Enoxaparin Sodium 40 MG/0.4 ML SYRINGE SC SCH (08:43)
[2017-12-08] MEDS: Ketoconazole 2% Cream 15 gm Tube TOP SCH (08:43)
--- NOTE | 2017-12-08 09:28 | PRG ---
DATE OF SERVICE: 12/08/2017 SUBJECTIVE: The patient thinks she is doing good. She has noted she is urinating a lot more frequen tly, particularly in the soil conservation aide hours. The nurses have reported that there is a very strong o nuha to her urine. The patient said that her right hand feels a lot better after the use of the heat , it is not hurting and her motion is much improved. OBJECTIVE: The patient is sitting up in bed. She is alert, appears very comfortable in no distress. Her temperature 98.3, pulse 73, respirations 22, O2 sat 92% on room air, blood pressure 151/67. Micaela ngs are clear. Heart, regular rate. Extremities: No edema. Lab shows an H&H of 10.7 and 34.5, white cell count 14,500 with 69% segs, 27% lymphocytes, and a plat elet count of 190. Sodium 141, potassium 4, BUN 16, creatinine 0.58, GFR greater than 90, glucose 13 0. Hemoglobin A1c on 11/26/2017 5.6. Her voided urine showed WBCs too numerous to count. ASSESSMENT: 1. Generalized weakness. A. Requires assistance with ADLs. B. Complicated by gait abnormality with nonweightbearing on the right leg. C. Secondary to a fall and supracondylar fracture of the right femur with open reduction interna l fixation on 11/03/2017. D. Overall strength improving. Patient upper body strength improving, endurance improving. She remains at no weightbearing on the right leg as of 12/08/2017. 2. Supracondylar fracture of the right femur. A. Secondary to a fall on a patch of ice. B. Required open reduction internal fixation with a Synthes variable angle locking plate and multiple screws on 11/03/[address] Corey Dickson, orthopedic surgeon. C. Using a long leg knee immobilizer. D. No weightbearing with the right leg. 3. Hypertension. 4. Chronic obstructive pulmonary disease. 5. Diabetes mellitus type 2. A. Diet controlled. Hemoglobin A1c 5.6 as of 11/26/2017. 6. Generalized osteoarthritis. 7. Hypercholesterolemia. 8. Diastolic dysfunction. A. No evidence of acute congestive heart failure as of 12/08/2017. 9. Spondylosis of the lumbar spine. 10. Obesity. 11. Seborrheic dermatitis. 12. Pain in the right hand secondary to arthritis in the first USP joint. A. Improved with the use of the heat from the Gaymar pump as of 12/08/2017. 13. Urinary tract infection as of 12/08/2017. PLAN: Continue PT. Continue to use the Gaymar pump as needed. We will start the patient on Cipro 5 00 mg b.i.d. for 7 days, and Pyridium 200 mg b.i.d. for 2 days.
[2017-12-08] MEDS: Polyethylene Glycol OPTH DROP 15 ML BOT EA EYE SCH (11:53)
[2017-12-08] MEDS: Mometasone Furoate 120 PUFF 220 MCG INH SCH (18:20)
[2017-12-08] MEDS ORDERED: Phenazopyridine HCl 97.5 MG TABLET PO SCH (20:20)
[2017-12-08] MEDS: Atorvastatin Calcium 10 MG TAB PO SCH (20:25)
[2017-12-08] MEDS: Latanoprost 0.005% Ophth Soln 2.5 ml Bottle EA EYE SCH (20:27)
[2017-12-09] MEDS: Enoxaparin Sodium 40 MG/0.4 ML SYRINGE SC SCH ×3 (07:48→08:05)
[2017-12-09] MEDS: Lisinopril 10 MG TAB PO SCH ×2 (07:49→20:06)
[2017-12-09] MEDS: Calcium Carbonate 500 MG ChewTAB PO SCH ×3 (07:52→08:05)
[2017-12-09] MEDS: Fish Oil 1,000 MG CAP PO SCH ×3 (08:05→20:06)
[2017-12-09] MEDS: Vit A,C & E/Lutein/Minerals Tablet PO SCH ×2 (08:05→20:06)
[2017-12-09] MEDS: Cipro 250 MG TAB PO SCH ×2 (08:06→20:06)
[2017-12-09] MEDS: Aspirin 81 mg Enteric Coated Tablet PO SCH (08:06)
[2017-12-09] MEDS: cloNIDine 0.1 MG TAB PO SCH ×3 (08:06→20:06)
[2017-12-09] MEDS: hydrALAZINE 25 MG TAB PO SCH ×3 (08:06→20:06)
[2017-12-09] MEDS: Metoprolol Tartrate 50 MG TAB PO SCH ×2 (08:07→20:05)
[2017-12-09] MEDS: Furosemide 40 MG TAB PO SCH (08:07)
[2017-12-09] MEDS: Clotrimazole 1% Cream 15 GM TUBE TOP SCH (08:09)
[2017-12-09] MEDS: Ketoconazole 2% Cream 15 gm Tube TOP SCH (08:09)
[2017-12-09] MEDS: Phenazopyridine HCl 97.5 MG TABLET PO SCH ×3 (08:23→20:05)
[2017-12-09] MEDS: Polyethylene Glycol OPTH DROP 15 ML BOT EA EYE SCH (11:30)
--- NOTE | 2017-12-09 12:09 | PRG ---
DATE OF SERVICE: 12/09/2017 SUBJECTIVE: The patient said she is doing better. She is beginning to stand on her left leg and is tolerating this better. She is not having any pain. OBJECTIVE: The patient is sitting up in a chair. She is alert, appears very comfortable in no distr ess. Her vital signs show a temperature of 97.9, pulse 65, blood pressure 132/61, respirations 22, O 2 sat 94% on room air. Lungs are clear. Heart, regular rate. Extremities, no edema. ASSESSMENT: 1. Generalized weakness. A. Requires assistance with ADLs. B. Complicated by gait abnormality with nonweightbearing on the right leg. C. Secondary to a fall and supracondylar fracture of the right femur with open reduction interna l fixation on 11/03/2017. D. Overall strength improving. Upper body strength improved. Beginning to stand some on the le ft leg and tolerating standing for longer periods, still at no weightbearing on the right as of 12/09/2017. 2. Supracondylar fracture of the right femur. A. Secondary to a fall on a patch of ice. B. Required open reduction internal fixation with a Synthes variable angle locking plate and multiple screws on 11/03/[address] Corey Dickson, orthopedic surgeon. C. Using a long leg knee immobilizer. D. No weightbearing with the right leg. 3. Hypertension. 4. Chronic obstructive pulmonary disease. 5. Diabetes mellitus type 2. A. Diet controlled. Hemoglobin A1c 5.6 as of 11/26/2017. 6. Generalized osteoarthritis. 7. Hypercholesterolemia. 8. Diastolic dysfunction. A. No evidence of acute congestive heart failure as of 12/09/2017. 9. Spondylosis of the lumbar spine. 10. Obesity. 11. Seborrheic dermatitis. 12. Pain in the right hand secondary to arthritis in the first MCFP joint. A. Pain in the right hand over the 1st MCFP joint has resolved as of 12/09/2017. 13. Urinary tract infection as of 12/08/2017. A. Symptoms have improved as of 12/09/2017. PLAN: Continue present care. Continue physical therapy.
[2017-12-09] MEDS: Mometasone Furoate 120 PUFF 220 MCG INH SCH (17:49)
[2017-12-09] MEDS: Latanoprost 0.005% Ophth Soln 2.5 ml Bottle EA EYE SCH (20:05)
[2017-12-09] MEDS: Atorvastatin Calcium 10 MG TAB PO SCH (20:05)
[2017-12-10] MEDS: Calcium Carbonate 500 MG ChewTAB PO SCH (08:31)
[2017-12-10] MEDS: Vit A,C & E/Lutein/Minerals Tablet PO SCH ×2 (08:31→21:19)
[2017-12-10] MEDS: hydrALAZINE 25 MG TAB PO SCH ×3 (08:32→21:18)
[2017-12-10] MEDS: cloNIDine 0.1 MG TAB PO SCH ×3 (08:32→21:18)
[2017-12-10] MEDS: Fish Oil 1,000 MG CAP PO SCH ×3 (08:32→21:17)
[2017-12-10] MEDS: Furosemide 40 MG TAB PO SCH (08:32)
[2017-12-10] MEDS: Cipro 250 MG TAB PO SCH ×2 (08:32→21:18)
[2017-12-10] MEDS: Metoprolol Tartrate 50 MG TAB PO SCH ×2 (08:32→21:18)
[2017-12-10] MEDS: Ketoconazole 2% Cream 15 gm Tube TOP SCH (08:33)
[2017-12-10] MEDS: Clotrimazole 1% Cream 15 GM TUBE TOP SCH (08:33)
[2017-12-10] MEDS: Aspirin 81 mg Enteric Coated Tablet PO SCH (08:33)
[2017-12-10] MEDS: Lisinopril 10 MG TAB PO SCH ×2 (08:33→21:17)
[2017-12-10] MEDS: Polyethylene Glycol OPTH DROP 15 ML BOT EA EYE SCH (12:33)
[2017-12-10] MEDS: Mometasone Furoate 120 PUFF 220 MCG INH SCH (17:55)
--- NOTE | 2017-12-10 18:12 | PRG ---
DATE OF SERVICE: 12/10/2017 SUBJECTIVE: The patient said she is doing good. She said she is standing for up to 10 minutes on he r left leg. Her strength is improving. Overall, she thinks she is better. The patient says her uri nation is better. It is not as frequent and she is not having urgency nor the strong odor. OBJECTIVE: GENERAL: The patient is sitting up in her wheelchair. Her right leg elevated. She is alert, appear s very comfortable and in no distress. VITAL SIGNS: Her temperature is 97.6, pulse 65, respirations 22, O2 sat 93% on room air, blood press ure 130/52. LUNGS: clear. HEART: Regular rate. EXTREMITIES: There is no edema. The incision along the lateral aspect of the right leg is healing w ell. There is no redness, no drainage. ASSESSMENT: 1. Generalized weakness. A. Requires assistance with ADLs. B. Complicated by gait abnormality with nonweightbearing on the right leg. C. Secondary to a fall and supracondylar fracture of the right femur with open reduction interna l fixation on 11/03/2017. D. Overall strength improving. Upper body strength improved. Standing for longer period on the left leg. Still no weightbearing on the right as of 12/10/2017. 2. Supracondylar fracture of the right femur. A. Secondary to a fall on a patch of ice. B. Required open reduction internal fixation with a Synthes variable angle locking plate and multiple screws on 11/03/[address] Corey Dickson, orthopedic surgeon. C. Using a long leg knee immobilizer. D. No weightbearing with the right leg. 3. Hypertension. 4. Chronic obstructive pulmonary disease. 5. Diabetes mellitus type 2. A. Diet controlled. Hemoglobin A1c 5.6 as of 11/26/2017. 6. Generalized osteoarthritis. 7. Hypercholesterolemia. 8. Diastolic dysfunction. A. No evidence of acute congestive heart failure as of 12/09/2017. 9. Spondylosis of the lumbar spine. 10. Obesity. 11. Seborrheic dermatitis. 12. Pain in the right hand secondary to arthritis in the first FPC joint. A. Pain in the right hand over the 1st FPC joint has resolved as of 12/09/2017. 13. Urinary tract infection as of 12/08/2017. A. Symptoms have improved as of 12/10/2017. PLAN: Continue present care. Continue physical therapy.
[2017-12-10] MEDS: Latanoprost 0.005% Ophth Soln 2.5 ml Bottle EA EYE SCH (21:16)
[2017-12-10] MEDS: Atorvastatin Calcium 10 MG TAB PO SCH (21:18)
[2017-12-11] MEDS: Cipro 250 MG TAB PO SCH ×2 (09:08→21:11)
[2017-12-11] MEDS: cloNIDine 0.1 MG TAB PO SCH ×3 (09:08→21:11)
[2017-12-11] MEDS: Aspirin 81 mg Enteric Coated Tablet PO SCH (09:08)
[2017-12-11] MEDS: Clotrimazole 1% Cream 15 GM TUBE TOP SCH (09:08)
[2017-12-11] MEDS: Furosemide 40 MG TAB PO SCH (09:09)
[2017-12-11] MEDS: Fish Oil 1,000 MG CAP PO SCH ×3 (09:09→21:11)
[2017-12-11] MEDS: hydrALAZINE 25 MG TAB PO SCH ×3 (09:09→21:12)
[2017-12-11] MEDS: Ketoconazole 2% Cream 15 gm Tube TOP SCH (09:10)
[2017-12-11] MEDS: Metoprolol Tartrate 50 MG TAB PO SCH ×2 (09:10→21:12)
[2017-12-11] MEDS: Vit A,C & E/Lutein/Minerals Tablet PO SCH ×2 (09:11→21:12)
[2017-12-11] MEDS: Lisinopril 10 MG TAB PO SCH ×2 (09:11→21:12)
[2017-12-11] MEDS: Calcium Carbonate 500 MG ChewTAB PO SCH (09:13)
[2017-12-11] MEDS: Enoxaparin Sodium 40 MG/0.4 ML SYRINGE SC SCH (09:15)
[2017-12-11] MEDS: Polyethylene Glycol OPTH DROP 15 ML BOT EA EYE SCH (13:03)
[2017-12-11] MEDS: Mometasone Furoate 120 PUFF 220 MCG INH SCH (18:08)
[2017-12-11] MEDS: Atorvastatin Calcium 10 MG TAB PO SCH (21:11)
[2017-12-11] MEDS: Latanoprost 0.005% Ophth Soln 2.5 ml Bottle EA EYE SCH (21:12)
[2017-12-12] MEDS: Clotrimazole 1% Cream 15 GM TUBE TOP SCH (08:14)
[2017-12-12] MEDS: Calcium Carbonate 500 MG ChewTAB PO SCH (08:14)
[2017-12-12] MEDS: Ketoconazole 2% Cream 15 gm Tube TOP SCH (08:14)
[2017-12-12] MEDS: Fish Oil 1,000 MG CAP PO SCH ×3 (08:15→20:57)
[2017-12-12] MEDS: Vit A,C & E/Lutein/Minerals Tablet PO SCH ×2 (08:15→20:57)
[2017-12-12] MEDS: Aspirin 81 mg Enteric Coated Tablet PO SCH (08:15)
[2017-12-12] MEDS: Lisinopril 10 MG TAB PO SCH ×2 (08:15→20:57)
[2017-12-12] MEDS: Cipro 250 MG TAB PO SCH ×2 (08:16→20:57)
[2017-12-12] MEDS: Metoprolol Tartrate 50 MG TAB PO SCH ×2 (08:16→20:57)
[2017-12-12] MEDS: cloNIDine 0.1 MG TAB PO SCH ×3 (08:16→20:56)
[2017-12-12] MEDS: hydrALAZINE 25 MG TAB PO SCH ×3 (08:16→20:58)
[2017-12-12] MEDS: Furosemide 40 MG TAB PO SCH (08:17)
[2017-12-12] MEDS: Enoxaparin Sodium 40 MG/0.4 ML SYRINGE SC SCH (08:17)
--- NOTE | 2017-12-12 08:53 | PRG ---
DATE OF SERVICE: 12/12/2017 SUBJECTIVE: The patient said she is doing alright. She has no complaints this morning. The patient is in bed and was ready to get up. OBJECTIVE: The patient is alert, appears comfortable in no distress. Temp 97.8, pulse 66, respirati ons 22, O2 sat 94%, blood pressure 138/63. Lungs are clear. Heart, regular rate. Extremities, no e tye. The patient has a long leg knee immobilizer on the right leg. ASSESSMENT: 1. Generalized weakness. A. Requires assistance with ADLs. B. Complicated by gait abnormality with nonweightbearing on the right leg. C. Secondary to a fall and supracondylar fracture of the right femur with open reduction interna l fixation on 11/03/2017. D. Overall strength improving. Upper body strength improved. Standing for longer period on the left leg. Still no weightbearing on the right as of 12/12/2017. 2. Supracondylar fracture of the right femur. A. Secondary to a fall on a patch of ice. B. Required open reduction internal fixation with a Synthes variable angle locking plate and multiple screws on 11/03/[address] Corey Dickson, orthopedic surgeon. C. Using a long leg knee immobilizer. D. No weightbearing with the right leg. 3. Hypertension. 4. Chronic obstructive pulmonary disease. 5. Diabetes mellitus type 2. A. Diet controlled. Hemoglobin A1c 5.6 as of 11/26/2017. 6. Generalized osteoarthritis. 7. Hypercholesterolemia. 8. Diastolic dysfunction. A. No evidence of acute congestive heart failure as of 12/09/2017. 9. Spondylosis of the lumbar spine. 10. Obesity. 11. Seborrheic dermatitis. 12. Pain in the right hand secondary to arthritis in the first RESIDENTIAL joint. A. Pain in the right hand over the 1st RESIDENTIAL joint has resolved as of 12/09/2017. 13. Urinary tract infection as of 12/08/2017. A. Continued improvement as of 12/12/2017. PLAN: Continue present care. Continue physical therapy. The patient due to see her orthopedic surg felipe, Dr. Dickson, on Tuesday12/14/2017.
[2017-12-12] MEDS: Polyethylene Glycol OPTH DROP 15 ML BOT EA EYE SCH (11:29)
[2017-12-12] MEDS: Mometasone Furoate 120 PUFF 220 MCG INH SCH (17:57)
[2017-12-12] MEDS: Atorvastatin Calcium 10 MG TAB PO SCH (20:56)
[2017-12-12] MEDS: Latanoprost 0.005% Ophth Soln 2.5 ml Bottle EA EYE SCH (20:56)
[2017-12-13] MEDS: Calcium Carbonate 500 MG ChewTAB PO SCH (09:12)
[2017-12-13] MEDS: Enoxaparin Sodium 40 MG/0.4 ML SYRINGE SC SCH (09:12)
[2017-12-13] MEDS: Furosemide 40 MG TAB PO SCH (09:13)
[2017-12-13] MEDS: Metoprolol Tartrate 50 MG TAB PO SCH ×2 (09:13→20:42)
[2017-12-13] MEDS: Aspirin 81 mg Enteric Coated Tablet PO SCH (09:13)
[2017-12-13] MEDS: Vit A,C & E/Lutein/Minerals Tablet PO SCH ×2 (09:13→20:42)
[2017-12-13] MEDS: Lisinopril 10 MG TAB PO SCH ×2 (09:14→20:41)
[2017-12-13] MEDS: Fish Oil 1,000 MG CAP PO SCH ×3 (09:14→20:41)
[2017-12-13] MEDS: hydrALAZINE 25 MG TAB PO SCH ×3 (09:14→20:41)
[2017-12-13] MEDS: cloNIDine 0.1 MG TAB PO SCH ×3 (09:15→20:40)
[2017-12-13] MEDS: Ketoconazole 2% Cream 15 gm Tube TOP SCH (09:15)
[2017-12-13] MEDS: Clotrimazole 1% Cream 15 GM TUBE TOP SCH (09:15)
[2017-12-13] MEDS: Cipro 250 MG TAB PO SCH ×2 (09:15→20:40)
[2017-12-13] MEDS: Polyethylene Glycol OPTH DROP 15 ML BOT EA EYE SCH (12:00)
[2017-12-13] MEDS: Mometasone Furoate 120 PUFF 220 MCG INH SCH (18:15)
[2017-12-13] MEDS: Atorvastatin Calcium 10 MG TAB PO SCH (20:40)
[2017-12-13] MEDS: Latanoprost 0.005% Ophth Soln 2.5 ml Bottle EA EYE SCH (20:41)
[2017-12-14] MEDS: Ketoconazole 2% Cream 15 gm Tube TOP SCH (08:52)
[2017-12-14] MEDS: Clotrimazole 1% Cream 15 GM TUBE TOP SCH (08:52)
[2017-12-14] MEDS: Calcium Carbonate 500 MG ChewTAB PO SCH (08:52)
[2017-12-14] MEDS: Lisinopril 10 MG TAB PO SCH ×2 (08:53→20:21)
[2017-12-14] MEDS: Fish Oil 1,000 MG CAP PO SCH ×3 (08:53→20:18)
[2017-12-14] MEDS: Aspirin 81 mg Enteric Coated Tablet PO SCH (08:53)
[2017-12-14] MEDS: Vit A,C & E/Lutein/Minerals Tablet PO SCH ×2 (08:53→20:19)
[2017-12-14] MEDS: cloNIDine 0.1 MG TAB PO SCH ×3 (08:54→20:21)
[2017-12-14] MEDS: Furosemide 40 MG TAB PO SCH (08:54)
[2017-12-14] MEDS: Cipro 250 MG TAB PO SCH ×2 (08:54→20:20)
[2017-12-14] MEDS: Metoprolol Tartrate 50 MG TAB PO SCH ×2 (08:54→20:20)
[2017-12-14] MEDS: hydrALAZINE 25 MG TAB PO SCH ×3 (08:54→20:22)
[2017-12-14] MEDS: Enoxaparin Sodium 40 MG/0.4 ML SYRINGE SC SCH (08:55)
[2017-12-14] MEDS: Polyethylene Glycol OPTH DROP 15 ML BOT EA EYE SCH (11:47)
--- NOTE | 2017-12-14 14:31 | PRG ---
DATE OF SERVICE: 12/14/2017 SUBJECTIVE: The patient is doing alright today, tolerating longer time standing on the left leg. Th e patient due to see her orthopedic surgeon, Dr. Dickson this afternoon. OBJECTIVE: GENERAL: The patient is sitting up in her wheelchair with her right leg elevated. She is alert, truman ears very comfortable, and in no distress. VITAL SIGNS: Her temperature 97.5, pulse 63, blood pressure 136/63, respirations 22, O2 sat 94% on r oom air. LUNGS: Clear. HEART: Regular rate. EXTREMITIES: No edema. ASSESSMENT: 1. Generalized weakness. A. Requires assistance with ADLs. B. Complicated by gait abnormality with nonweightbearing on the right leg. C. Secondary to a fall and supracondylar fracture of the right femur with open reduction interna l fixation on 11/03/2017. D. Overall strength improving. Upper body strength improved. Standing for longer period on the left leg. Still no weightbearing on the right as of 12/14/2017. 2. Supracondylar fracture of the right femur. A. Secondary to a fall on a patch of ice. B. Required open reduction internal fixation with a Synthes variable angle locking plate and multiple screws on 11/03/[address] Corey Dickson, orthopedic surgeon. C. Using a long leg knee immobilizer. D. No weightbearing with the right leg. 3. Hypertension. 4. Chronic obstructive pulmonary disease. 5. Diabetes mellitus type 2. A. Diet controlled. Hemoglobin A1c 5.6 as of 11/26/2017. 6. Generalized osteoarthritis. 7. Hypercholesterolemia. 8. Diastolic dysfunction. A. No evidence of acute congestive heart failure as of 12/09/2017. 9. Spondylosis of the lumbar spine. 10. Obesity. 11. Seborrheic dermatitis. 12. Pain in the right hand secondary to arthritis in the first ASSISTED joint. A. Pain in the right hand over the 1st ASSISTED joint has resolved as of 12/09/2017. 13. Urinary tract infection as of 12/08/2017. A. Continued improvement as of 12/12/2017. PLAN: Continue physical therapy. Continue present care. The patient is due to see Dr. Dickson this afternoon.
[2017-12-14] MEDS: Mometasone Furoate 120 PUFF 220 MCG INH SCH (18:10)
[2017-12-14] MEDS: Atorvastatin Calcium 10 MG TAB PO SCH (20:19)
[2017-12-14] MEDS: Latanoprost 0.005% Ophth Soln 2.5 ml Bottle EA EYE SCH (20:23)
[2017-12-15] MEDS: hydrALAZINE 25 MG TAB PO SCH ×3 (08:44→20:40)
[2017-12-15] MEDS: Fish Oil 1,000 MG CAP PO SCH ×3 (08:44→20:38)
[2017-12-15] MEDS: Furosemide 40 MG TAB PO SCH (08:44)
[2017-12-15] MEDS: Calcium Carbonate 500 MG ChewTAB PO SCH (08:44)
[2017-12-15] MEDS: Lisinopril 10 MG TAB PO SCH ×2 (08:45→20:38)
[2017-12-15] MEDS: cloNIDine 0.1 MG TAB PO SCH ×3 (08:45→20:40)
[2017-12-15] MEDS: Aspirin 81 mg Enteric Coated Tablet PO SCH (08:45)
[2017-12-15] MEDS: Metoprolol Tartrate 50 MG TAB PO SCH ×2 (08:45→20:40)
[2017-12-15] MEDS: Cipro 250 MG TAB PO SCH (08:45)
[2017-12-15] MEDS: Vit A,C & E/Lutein/Minerals Tablet PO SCH ×2 (08:45→20:38)
[2017-12-15] MEDS: Ketoconazole 2% Cream 15 gm Tube TOP SCH (08:46)
[2017-12-15] MEDS: Enoxaparin Sodium 40 MG/0.4 ML SYRINGE SC SCH (08:46)
[2017-12-15] MEDS: Clotrimazole 1% Cream 15 GM TUBE TOP SCH (08:47)
[2017-12-15] MEDS: Polyethylene Glycol OPTH DROP 15 ML BOT EA EYE SCH (12:06)
[2017-12-15] MEDS: Mometasone Furoate 120 PUFF 220 MCG INH SCH (18:03)
[2017-12-15] MEDS: Atorvastatin Calcium 10 MG TAB PO SCH (20:38)
[2017-12-15] MEDS: Latanoprost 0.005% Ophth Soln 2.5 ml Bottle EA EYE SCH (20:41)
[2017-12-16] MEDS: Calcium Carbonate 500 MG ChewTAB PO SCH (07:56)
[2017-12-16] MEDS ORDERED: Calcium Carbonate 500 MG ChewTAB PO SCH (08:15)
[2017-12-16] MEDS: Aspirin 81 mg Enteric Coated Tablet PO SCH (09:15)
[2017-12-16] MEDS: cloNIDine 0.1 MG TAB PO SCH ×3 (09:16→20:29)
[2017-12-16] MEDS: Clotrimazole 1% Cream 15 GM TUBE TOP SCH (09:16)
[2017-12-16] MEDS: hydrALAZINE 25 MG TAB PO SCH ×3 (09:17→20:21)
[2017-12-16] MEDS: Furosemide 40 MG TAB PO SCH (09:17)
[2017-12-16] MEDS: Metoprolol Tartrate 50 MG TAB PO SCH ×2 (09:18→20:20)
[2017-12-16] MEDS: Ketoconazole 2% Cream 15 gm Tube TOP SCH (09:19)
[2017-12-16] MEDS: Vit A,C & E/Lutein/Minerals Tablet PO SCH ×2 (09:47→20:19)
[2017-12-16] MEDS: Fish Oil 1,000 MG CAP PO SCH ×3 (09:48→20:19)
[2017-12-16] MEDS: Lisinopril 10 MG TAB PO SCH ×2 (09:48→20:19)
[2017-12-16] MEDS: Enoxaparin Sodium 40 MG/0.4 ML SYRINGE SC SCH (09:49)
[2017-12-16] MEDS: Polyethylene Glycol OPTH DROP 15 ML BOT EA EYE SCH (11:47)
--- NOTE | 2017-12-16 15:00 | PRG ---
DATE OF SERVICE: 12/16/2017 SUBJECTIVE: The patient said she is doing better. She did see her orthopedic surgeon, Dr. Dickson, on 12/14/2017 and he x-rayed the leg and was happy with her progress. He had recommended up to 25% w eightbearing on the right leg, active and passive range of motion. She can leave the knee immobilize r off except when she is up standing on the leg. She is due to go back and see him in January. OBJECTIVE: The patient is sitting up in the chair. She has her knee immobilizer off and the knee is flexed. There is no effusion. The incision along the lateral aspect of the knee is healing well. The patient looks very comfortable. Her vital signs show a temperature 97.6, pulse 58, respirations 22, O2 sat 94% on room air, blood pressure 146/70. Lungs are clear. Heart, regular rate. ASSESSMENT: 1. Generalized weakness. A. Requires assistance with ADLs. B. Complicated by gait abnormality with nonweightbearing on the right leg. C. Secondary to a fall and supracondylar fracture of the right femur with open reduction interna l fixation on 11/03/2017. D. Overall strength improving, upper body strength improved. Now allowing up to 25% weightbear ing on the right leg as of 12/16/2017. 2. Supracondylar fracture of the right femur. A. Secondary to a fall on a patch of ice. B. Required open reduction internal fixation with a Synthes variable angle locking plate and multiple screws on 11/03/[address] Corey Dickson, orthopedic surgeon. C. Using a long leg knee immobilizer. D. Allowed up to 25% weightbearing on the right leg with active and passive range of motion as o f 12/14/2017. 3. Hypertension. 4. Chronic obstructive pulmonary disease. 5. Diabetes mellitus type 2. A. Diet controlled. Hemoglobin A1c 5.6 as of 11/26/2017. 6. Generalized osteoarthritis. 7. Hypercholesterolemia. 8. Diastolic dysfunction. A. No evidence of acute congestive heart failure as of 12/09/2017. 9. Spondylosis of the lumbar spine. 10. Obesity. 11. Seborrheic dermatitis. 12. Pain in the right hand secondary to arthritis in the first INTERMEDIATE joint. A. Pain in the right hand over the 1st INTERMEDIATE joint has resolved as of 12/09/2017. 13. Urinary tract infection as of 12/08/2017. A. Continued improvement as of 12/12/2017. PLAN: Physical therapy. We will continue to work with patient. The patient will see Dr. Dickson in followup in about 6 weeks.
[2017-12-16] MEDS: Mometasone Furoate 120 PUFF 220 MCG INH SCH (17:27)
[2017-12-16] MEDS: Atorvastatin Calcium 10 MG TAB PO SCH (20:21)
[2017-12-16] MEDS: Latanoprost 0.005% Ophth Soln 2.5 ml Bottle EA EYE SCH (20:24)
[2017-12-17] MEDS: Calcium Carbonate 500 MG ChewTAB PO SCH (09:30)
[2017-12-17] MEDS: cloNIDine 0.1 MG TAB PO SCH ×3 (09:31→20:23)
[2017-12-17] MEDS: Fish Oil 1,000 MG CAP PO SCH ×3 (09:31→20:24)
[2017-12-17] MEDS: Furosemide 40 MG TAB PO SCH (09:31)
[2017-12-17] MEDS: Metoprolol Tartrate 50 MG TAB PO SCH ×2 (09:31→20:25)
[2017-12-17] MEDS: Vit A,C & E/Lutein/Minerals Tablet PO SCH ×2 (09:31→20:25)
[2017-12-17] MEDS: Aspirin 81 mg Enteric Coated Tablet PO SCH (09:31)
[2017-12-17] MEDS: hydrALAZINE 25 MG TAB PO SCH ×3 (09:32→20:23)
[2017-12-17] MEDS: Lisinopril 10 MG TAB PO SCH ×2 (09:32→20:24)
[2017-12-17] MEDS: Ketoconazole 2% Cream 15 gm Tube TOP SCH (09:32)
[2017-12-17] MEDS: Clotrimazole 1% Cream 15 GM TUBE TOP SCH (09:33)
[2017-12-17] MEDS: Enoxaparin Sodium 40 MG/0.4 ML SYRINGE SC SCH (09:33)
[2017-12-17] MEDS: Polyethylene Glycol OPTH DROP 15 ML BOT EA EYE SCH (12:44)
[2017-12-17] MEDS: Mometasone Furoate 120 PUFF 220 MCG INH SCH (18:16)
[2017-12-17] MEDS: Atorvastatin Calcium 10 MG TAB PO SCH (20:25)
[2017-12-17] MEDS: Latanoprost 0.005% Ophth Soln 2.5 ml Bottle EA EYE SCH (20:26)
[2017-12-18] MEDS: Ketoconazole 2% Cream 15 gm Tube TOP SCH (09:00)
[2017-12-18] MEDS: Clotrimazole 1% Cream 15 GM TUBE TOP SCH (09:00)
[2017-12-18] MEDS: Furosemide 40 MG TAB PO SCH (09:01)
[2017-12-18] MEDS: Metoprolol Tartrate 50 MG TAB PO SCH ×2 (09:01→20:26)
[2017-12-18] MEDS: hydrALAZINE 25 MG TAB PO SCH ×3 (09:01→20:27)
[2017-12-18] MEDS: Vit A,C & E/Lutein/Minerals Tablet PO SCH ×2 (09:01→20:26)
[2017-12-18] MEDS: Aspirin 81 mg Enteric Coated Tablet PO SCH (09:01)
[2017-12-18] MEDS: Calcium Carbonate 500 MG ChewTAB PO SCH (09:01)
[2017-12-18] MEDS: Lisinopril 10 MG TAB PO SCH ×2 (09:03→20:25)
[2017-12-18] MEDS: Fish Oil 1,000 MG CAP PO SCH ×3 (09:03→20:26)
[2017-12-18] MEDS: Enoxaparin Sodium 40 MG/0.4 ML SYRINGE SC SCH (09:03)
[2017-12-18] MEDS: cloNIDine 0.1 MG TAB PO SCH ×4 (09:03→20:26)
[2017-12-18] MEDS: Polyethylene Glycol OPTH DROP 15 ML BOT EA EYE SCH (11:52)
[2017-12-18] MEDS: Mometasone Furoate 120 PUFF 220 MCG INH SCH (17:27)
[2017-12-18] MEDS: Atorvastatin Calcium 10 MG TAB PO SCH (20:26)
[2017-12-18] MEDS: Latanoprost 0.005% Ophth Soln 2.5 ml Bottle EA EYE SCH (20:28)
[2017-12-19] MEDS: Aspirin 81 mg Enteric Coated Tablet PO SCH (08:17)
[2017-12-19] MEDS: cloNIDine 0.1 MG TAB PO SCH ×3 (08:17→21:14)
[2017-12-19] MEDS: Calcium Carbonate 500 MG ChewTAB PO SCH (08:17)
[2017-12-19] MEDS: Enoxaparin Sodium 40 MG/0.4 ML SYRINGE SC SCH (08:18)
[2017-12-19] MEDS: Fish Oil 1,000 MG CAP PO SCH ×3 (08:18→21:12)
[2017-12-19] MEDS: Clotrimazole 1% Cream 15 GM TUBE TOP SCH (08:18)
[2017-12-19] MEDS: Furosemide 40 MG TAB PO SCH (08:18)
[2017-12-19] MEDS: hydrALAZINE 25 MG TAB PO SCH ×3 (08:18→21:14)
[2017-12-19] MEDS: Metoprolol Tartrate 50 MG TAB PO SCH ×2 (08:19→21:14)
[2017-12-19] MEDS: Lisinopril 10 MG TAB PO SCH ×2 (08:19→21:13)
--- NOTE | 2017-12-19 08:19 | PRG ---
DATE OF SERVICE: 12/19/2017 SUBJECTIVE: The patient said she is doing good. She says her leg is feeling good, it is not hurting . OBJECTIVE: The patient is sitting up in a wheelchair. She was not wearing her knee immobilizer. Heriberto fuentes looks very comfortable. Her vital signs show a temperature of 98.2, pulse 70, respirations 22, O2 sat 95% on room air, blood pressure 154/67, earlier 142/68. Lungs are clear. Heart, regular rate. Extremities, no edema. Incision well healed on the lateral aspect of the right leg. There is no shannon ma, no tenderness to palpation. ASSESSMENT: 1. Generalized weakness. A. Requires assistance with ADLs. B. Complicated by gait abnormality with nonweightbearing on the right leg. C. Secondary to a fall and supracondylar fracture of the right femur with open reduction interna l fixation on 11/03/2017. D. Overall strength improving. Upper body strength improved. Now allowed 25% weightbearing on the right leg. Slow improvement as of 12/19/2017. 2. Supracondylar fracture of the right femur. A. Secondary to a fall on a patch of ice. B. Required open reduction internal fixation with a Synthes variable angle locking plate and multiple screws on 11/03/[address] Corey Dickson, orthopedic surgeon. C. Using a long leg knee immobilizer. D. Allowed up to 25% weightbearing on the right leg with active and passive range of motion as o f 12/14/2017. 3. Hypertension. 4. Chronic obstructive pulmonary disease. 5. Diabetes mellitus type 2. A. Diet controlled. Hemoglobin A1c 5.6 as of 11/26/2017. 6. Generalized osteoarthritis. 7. Hypercholesterolemia. 8. Diastolic dysfunction. A. No evidence of acute congestive heart failure as of 12/19/2017. 9. Spondylosis of the lumbar spine. 10. Obesity. 11. Seborrheic dermatitis. 12. Pain in the right hand secondary to arthritis in the first JAIL joint. A. Pain in the right hand over the 1st JAIL joint has resolved as of 12/09/2017. 13. Urinary tract infection as of 12/08/2017. A. Resolved as of 12/19/2017. PLAN: Continue present care. Continue physical therapy.
[2017-12-19] MEDS: Ketoconazole 2% Cream 15 gm Tube TOP SCH (08:20)
[2017-12-19] MEDS: Vit A,C & E/Lutein/Minerals Tablet PO SCH ×2 (08:20→21:12)
[2017-12-19] MEDS: Polyethylene Glycol OPTH DROP 15 ML BOT EA EYE SCH (11:59)
[2017-12-19] MEDS: Mometasone Furoate 120 PUFF 220 MCG INH SCH (17:35)
[2017-12-19] MEDS: Atorvastatin Calcium 10 MG TAB PO SCH (21:13)
[2017-12-19] MEDS: Latanoprost 0.005% Ophth Soln 2.5 ml Bottle EA EYE SCH (21:15)
[2017-12-20] MEDS: Vit A,C & E/Lutein/Minerals Tablet PO SCH ×2 (09:29→20:48)
[2017-12-20] MEDS: cloNIDine 0.1 MG TAB PO SCH ×3 (09:29→20:46)
[2017-12-20] MEDS: Enoxaparin Sodium 40 MG/0.4 ML SYRINGE SC SCH (09:29)
[2017-12-20] MEDS: Metoprolol Tartrate 50 MG TAB PO SCH ×2 (09:30→20:47)
[2017-12-20] MEDS: Fish Oil 1,000 MG CAP PO SCH ×3 (09:30→20:46)
[2017-12-20] MEDS: Lisinopril 10 MG TAB PO SCH ×2 (09:30→20:45)
[2017-12-20] MEDS: hydrALAZINE 25 MG TAB PO SCH ×3 (09:30→20:47)
[2017-12-20] MEDS: Furosemide 40 MG TAB PO SCH (09:31)
[2017-12-20] MEDS: Aspirin 81 mg Enteric Coated Tablet PO SCH (09:31)
[2017-12-20] MEDS: Calcium Carbonate 500 MG ChewTAB PO SCH (09:31)
[2017-12-20] MEDS: Clotrimazole 1% Cream 15 GM TUBE TOP SCH (09:32)
[2017-12-20] MEDS: Ketoconazole 2% Cream 15 gm Tube TOP SCH (09:32)
[2017-12-20] MEDS: Polyethylene Glycol OPTH DROP 15 ML BOT EA EYE SCH (13:06)
[2017-12-20] MEDS: Mometasone Furoate 120 PUFF 220 MCG INH SCH (18:27)
[2017-12-20] MEDS: Atorvastatin Calcium 10 MG TAB PO SCH (20:45)
[2017-12-20] MEDS: Latanoprost 0.005% Ophth Soln 2.5 ml Bottle EA EYE SCH (20:48)
[2017-12-21] MEDS: Calcium Carbonate 500 MG ChewTAB PO SCH (08:36)
[2017-12-21] MEDS: Enoxaparin Sodium 40 MG/0.4 ML SYRINGE SC SCH (08:37)
[2017-12-21] MEDS: Metoprolol Tartrate 50 MG TAB PO SCH ×2 (08:38→20:44)
[2017-12-21] MEDS: Fish Oil 1,000 MG CAP PO SCH ×3 (08:38→20:45)
[2017-12-21] MEDS: Furosemide 40 MG TAB PO SCH (08:38)
[2017-12-21] MEDS: Lisinopril 10 MG TAB PO SCH ×2 (08:38→20:46)
[2017-12-21] MEDS: Vit A,C & E/Lutein/Minerals Tablet PO SCH ×2 (08:38→20:44)
[2017-12-21] MEDS: hydrALAZINE 25 MG TAB PO SCH ×3 (08:39→20:45)
[2017-12-21] MEDS: cloNIDine 0.1 MG TAB PO SCH ×3 (08:39→20:44)
[2017-12-21] MEDS: Aspirin 81 mg Enteric Coated Tablet PO SCH (08:39)
[2017-12-21] MEDS: Clotrimazole 1% Cream 15 GM TUBE TOP SCH (08:40)
[2017-12-21] MEDS: Ketoconazole 2% Cream 15 gm Tube TOP SCH (08:40)
[2017-12-21] MEDS: Polyethylene Glycol OPTH DROP 15 ML BOT EA EYE SCH (12:02)
--- NOTE | 2017-12-21 15:00 | PRG ---
DATE OF SERVICE: 12/21/2017 SUBJECTIVE: The patient said she is doing better. She said she is getting stronger with her upper e xtremities, standing longer on the left leg. She is only able to very lightly bear weight on that ri ght leg up to 25%, so has not been doing much. She said she is able to use the bedside commode. She is able to help pull herself up in the shower to shower and get into the shower chair. She is happy with some of these accomplishments. OBJECTIVE: The patient is sitting up in a wheelchair doing exercises on her upper extremities. Her vital signs show temperature 97.4, pulse 71, respirations 22, O2 sat 94%, blood pressure 144/67. [place] gs are clear. Heart, regular rate. Lower extremities, no edema. Incision on the right leg is well healed. ASSESSMENT: 1. Generalized weakness. A. Requires assistance with ADLs. B. Complicated by gait abnormality with nonweightbearing on the right leg. C. Secondary to a fall and supracondylar fracture of the right femur with open reduction interna l fixation on 11/03/2017. D. Overall strength continues to improve, can only weight bear up to 25% on the right leg, able to assist more with transfer and some of her self-care as of 12/21/2017. 2. Supracondylar fracture of the right femur. A. Secondary to a fall on a patch of ice. B. Required open reduction internal fixation with a Synthes variable angle locking plate and multiple screws on 11/03/[address] Corey Dickson, orthopedic surgeon. C. Using a long leg knee immobilizer. D. Allowed up to 25% weightbearing on the right leg with active and passive range of motion as o f 12/14/2017. 3. Hypertension. 4. Chronic obstructive pulmonary disease. 5. Diabetes mellitus type 2. A. Diet controlled. Hemoglobin A1c 5.6 as of 11/26/2017. 6. Generalized osteoarthritis. 7. Hypercholesterolemia. 8. Diastolic dysfunction. A. No evidence of acute congestive heart failure as of 12/21/2017. 9. Spondylosis of the lumbar spine. 10. Obesity. 11. Seborrheic dermatitis. 12. Pain in the right hand secondary to arthritis in the first [facility] joint. A. Pain in the right hand over the 1st [facility] joint has resolved as of 12/09/2017. 13. Urinary tract infection as of 12/08/2017. A. Resolved as of 12/19/2017. PLAN: Continue physical therapy. Continue occupational therapy.
[2017-12-21] MEDS: Mometasone Furoate 120 PUFF 220 MCG INH SCH (17:56)
[2017-12-21] MEDS: Atorvastatin Calcium 10 MG TAB PO SCH (20:44)
[2017-12-21] MEDS: Latanoprost 0.005% Ophth Soln 2.5 ml Bottle EA EYE SCH (20:46)
[2017-12-22] MEDS: Enoxaparin Sodium 40 MG/0.4 ML SYRINGE SC SCH (08:56)
[2017-12-22] MEDS: Metoprolol Tartrate 50 MG TAB PO SCH ×2 (08:56→20:43)
[2017-12-22] MEDS: Aspirin 81 mg Enteric Coated Tablet PO SCH (08:56)
[2017-12-22] MEDS: Furosemide 40 MG TAB PO SCH (08:56)
[2017-12-22] MEDS: Calcium Carbonate 500 MG ChewTAB PO SCH (08:57)
[2017-12-22] MEDS: Lisinopril 10 MG TAB PO SCH ×2 (08:57→20:42)
[2017-12-22] MEDS: Vit A,C & E/Lutein/Minerals Tablet PO SCH ×2 (08:57→20:42)
[2017-12-22] MEDS: Fish Oil 1,000 MG CAP PO SCH ×3 (08:57→20:43)
[2017-12-22] MEDS: cloNIDine 0.1 MG TAB PO SCH ×3 (08:57→20:42)
[2017-12-22] MEDS: Ketoconazole 2% Cream 15 gm Tube TOP SCH (08:58)
[2017-12-22] MEDS: Clotrimazole 1% Cream 15 GM TUBE TOP SCH (08:58)
[2017-12-22] MEDS: hydrALAZINE 25 MG TAB PO SCH ×3 (08:58→20:42)
[2017-12-22] MEDS: Acetaminophen 325 MG TAB PO PRN (09:02)
[2017-12-22] MEDS: Polyethylene Glycol OPTH DROP 15 ML BOT EA EYE SCH (12:09)
[2017-12-22] MEDS: Mometasone Furoate 120 PUFF 220 MCG INH SCH (18:07)
[2017-12-22] MEDS: Atorvastatin Calcium 10 MG TAB PO SCH (20:42)
[2017-12-22] MEDS: Latanoprost 0.005% Ophth Soln 2.5 ml Bottle EA EYE SCH (20:44)
[2017-12-23] MEDS: Vit A,C & E/Lutein/Minerals Tablet PO SCH ×2 (08:33→21:06)
[2017-12-23] MEDS: Calcium Carbonate 500 MG ChewTAB PO SCH (08:33)
[2017-12-23] MEDS: Metoprolol Tartrate 50 MG TAB PO SCH ×2 (08:34→21:05)
[2017-12-23] MEDS: Lisinopril 10 MG TAB PO SCH ×2 (08:34→21:05)
[2017-12-23] MEDS: Fish Oil 1,000 MG CAP PO SCH ×3 (08:34→21:06)
[2017-12-23] MEDS: Aspirin 81 mg Enteric Coated Tablet PO SCH (08:34)
[2017-12-23] MEDS: hydrALAZINE 25 MG TAB PO SCH ×3 (08:35→21:04)
[2017-12-23] MEDS: Furosemide 40 MG TAB PO SCH (08:35)
[2017-12-23] MEDS: Enoxaparin Sodium 40 MG/0.4 ML SYRINGE SC SCH (08:36)
[2017-12-23] MEDS: Clotrimazole 1% Cream 15 GM TUBE TOP SCH (08:36)
[2017-12-23] MEDS: Ketoconazole 2% Cream 15 gm Tube TOP SCH (08:37)
[2017-12-23] MEDS: cloNIDine 0.1 MG TAB PO SCH ×3 (09:51→21:06)
[2017-12-23] MEDS: Polyethylene Glycol OPTH DROP 15 ML BOT EA EYE SCH (12:28)
--- NOTE | 2017-12-23 12:57 | PRG ---
DATE OF SERVICE: 12/23/2017 SUBJECTIVE: The patient said she is feeling better. The patient is working with physical therapy. She is doing very good with her upper body strength. She is working out on [email or web address] that also works her arms. She is only very able to bear weight on the right leg very lightly up to 25% so is really not able to ambulate with this minimal weightbearing. She is tolerating standing for longer periods on the left and with the light weightbearing, able to assist more with transfers. The patient is not having to use anything for pain. OBJECTIVE: The patient is sitting on a recumbent bicycle working in her legs and arms. She appears very comfortable and in no distress. Her vital signs show a temperature 98.7, pulse 75, blood pressu re 175/81 before her medications, last evening it was 136/65. Lungs were clear. Heart, regular rate . ASSESSMENT: 1. Generalized weakness. A. Requires assistance with ADLs. B. Complicated by gait abnormality with nonweightbearing on the right leg. C. Secondary to a fall and supracondylar fracture of the right femur with open reduction interna l fixation on 11/03/2017. D. Overall strength continues to improve, can only weight bear up to 25% on the right leg, able to assist more with transfer and some of her self-care as of 12/23/2017. 2. Supracondylar fracture of the right femur. A. Secondary to a fall on a patch of ice. B. Required open reduction internal fixation with a Synthes variable angle locking plate and multiple screws on 11/03/[address] Corey Dickson, orthopedic surgeon. C. Using a long leg knee immobilizer. D. Allowed up to 25% weightbearing on the right leg with active and passive range of motion as o f 12/14/2017. 3. Hypertension. 4. Chronic obstructive pulmonary disease. 5. Diabetes mellitus type 2. A. Diet controlled. Hemoglobin A1c 5.6 as of 11/26/2017. 6. Generalized osteoarthritis. 7. Hypercholesterolemia. 8. Diastolic dysfunction. A. No evidence of acute congestive heart failure as of 12/23/2017. 9. Spondylosis of the lumbar spine. 10. Obesity. 11. Seborrheic dermatitis. 12. Pain in the right hand secondary to arthritis in the first [facility] joint. A. Pain in the right hand over the 1st [facility] joint has resolved as of 12/09/2017. 13. Urinary tract infection as of 12/08/2017. A. Resolved as of 12/19/2017. PLAN: The patient continues to improve. The patient is having some intermittent elevations of her b lood pressure, mostly these are normal. If these continue may have to advance her hydralazine, which was decreased during this hospitalization.
[2017-12-23] MEDS: Mometasone Furoate 120 PUFF 220 MCG INH SCH (17:59)
[2017-12-23] MEDS: Atorvastatin Calcium 10 MG TAB PO SCH (21:06)
[2017-12-23] MEDS: Latanoprost 0.005% Ophth Soln 2.5 ml Bottle EA EYE SCH (21:07)
[2017-12-24] MEDS: Calcium Carbonate 500 MG ChewTAB PO SCH (08:11)
[2017-12-24] MEDS: Aspirin 81 mg Enteric Coated Tablet PO SCH (08:12)
[2017-12-24] MEDS: cloNIDine 0.1 MG TAB PO SCH ×3 (08:13→20:17)
[2017-12-24] MEDS: Clotrimazole 1% Cream 15 GM TUBE TOP SCH (08:14)
[2017-12-24] MEDS: Enoxaparin Sodium 40 MG/0.4 ML SYRINGE SC SCH (08:14)
[2017-12-24] MEDS: Fish Oil 1,000 MG CAP PO SCH ×3 (08:14→20:19)
[2017-12-24] MEDS: hydrALAZINE 25 MG TAB PO SCH ×3 (08:15→20:19)
[2017-12-24] MEDS: Furosemide 40 MG TAB PO SCH (08:15)
[2017-12-24] MEDS: Metoprolol Tartrate 50 MG TAB PO SCH ×2 (08:16→20:16)
[2017-12-24] MEDS: Lisinopril 10 MG TAB PO SCH ×2 (08:16→20:18)
[2017-12-24] MEDS: Ketoconazole 2% Cream 15 gm Tube TOP SCH (08:16)
[2017-12-24] MEDS: Vit A,C & E/Lutein/Minerals Tablet PO SCH ×2 (08:17→20:18)
[2017-12-24] MEDS: Polyethylene Glycol OPTH DROP 15 ML BOT EA EYE SCH (12:14)
[2017-12-24] MEDS: Mometasone Furoate 120 PUFF 220 MCG INH SCH (18:17)
[2017-12-24] MEDS: Atorvastatin Calcium 10 MG TAB PO SCH (20:19)
[2017-12-24] MEDS: Latanoprost 0.005% Ophth Soln 2.5 ml Bottle EA EYE SCH (20:20)
[2017-12-25] MEDS: Calcium Carbonate 500 MG ChewTAB PO SCH (08:07)
[2017-12-25] MEDS: Vit A,C & E/Lutein/Minerals Tablet PO SCH ×2 (08:09→20:35)
[2017-12-25] MEDS: Metoprolol Tartrate 50 MG TAB PO SCH ×2 (08:09→20:35)
[2017-12-25] MEDS: Fish Oil 1,000 MG CAP PO SCH ×3 (08:09→20:35)
[2017-12-25] MEDS: hydrALAZINE 25 MG TAB PO SCH ×3 (08:10→20:36)
[2017-12-25] MEDS: Lisinopril 10 MG TAB PO SCH ×2 (08:10→20:34)
[2017-12-25] MEDS: Enoxaparin Sodium 40 MG/0.4 ML SYRINGE SC SCH (08:11)
[2017-12-25] MEDS: Clotrimazole 1% Cream 15 GM TUBE TOP SCH (08:11)
[2017-12-25] MEDS: Furosemide 40 MG TAB PO SCH (08:11)
[2017-12-25] MEDS: cloNIDine 0.1 MG TAB PO SCH ×3 (08:12→20:35)
[2017-12-25] MEDS: Ketoconazole 2% Cream 15 gm Tube TOP SCH (08:12)
[2017-12-25] MEDS: Aspirin 81 mg Enteric Coated Tablet PO SCH (08:12)
[2017-12-25] MEDS: Polyethylene Glycol OPTH DROP 15 ML BOT EA EYE SCH (11:33)
[2017-12-25] MEDS: Mometasone Furoate 120 PUFF 220 MCG INH SCH (19:35)
[2017-12-25] MEDS: Atorvastatin Calcium 10 MG TAB PO SCH (20:36)
[2017-12-25] MEDS: Latanoprost 0.005% Ophth Soln 2.5 ml Bottle EA EYE SCH (20:37)
[2017-12-26] MEDS: Enoxaparin Sodium 40 MG/0.4 ML SYRINGE SC SCH (08:45)
[2017-12-26] MEDS: Calcium Carbonate 500 MG ChewTAB PO SCH (08:45)
[2017-12-26] MEDS: Lisinopril 10 MG TAB PO SCH ×2 (08:46→20:23)
[2017-12-26] MEDS: Metoprolol Tartrate 50 MG TAB PO SCH ×2 (08:46→20:23)
[2017-12-26] MEDS: Fish Oil 1,000 MG CAP PO SCH ×3 (08:46→20:24)
[2017-12-26] MEDS: Vit A,C & E/Lutein/Minerals Tablet PO SCH ×2 (08:46→20:23)
[2017-12-26] MEDS: hydrALAZINE 25 MG TAB PO SCH ×3 (08:47→20:24)
[2017-12-26] MEDS: Aspirin 81 mg Enteric Coated Tablet PO SCH (08:47)
[2017-12-26] MEDS: cloNIDine 0.1 MG TAB PO SCH ×3 (08:47→20:23)
[2017-12-26] MEDS: Furosemide 40 MG TAB PO SCH (08:47)
[2017-12-26] MEDS: Ketoconazole 2% Cream 15 gm Tube TOP SCH (08:48)
[2017-12-26] MEDS: Clotrimazole 1% Cream 15 GM TUBE TOP SCH (08:48)
[2017-12-26] MEDS: Polyethylene Glycol OPTH DROP 15 ML BOT EA EYE SCH (12:29)
--- NOTE | 2017-12-26 14:01 | PRG ---
DATE OF SERVICE: 12/26/2017 SUBJECTIVE: The patient said she is doing better. She feels stronger. She is helping more with her transfers. She still only very light weightbearing on the right leg, not enough to where she can re ally walk with that leg. Her leg is not hurting. OBJECTIVE: The patient lying in bed, alert, appears very comfortable in no distress. Her temperatur e 97.9, pulse 77, respirations 22, O2 sat 93%, blood pressure 134/63. Lungs are clear. Heart, regul ar rate. Extremities, no edema. Incision along the lateral aspect of the right knee is healed. ASSESSMENT: 1. Generalized weakness. A. Requires assistance with ADLs. B. Complicated by gait abnormality with nonweightbearing on the right leg. C. Secondary to a fall and supracondylar fracture of the right femur with open reduction interna l fixation on 11/03/2017. D. Overall strength continues to improve, can only weight bear up to 25% on the right leg, able to assist more with transfer and some of her self-care as of 12/26/2017. 2. Supracondylar fracture of the right femur. A. Secondary to a fall on a patch of ice. B. Required open reduction internal fixation with a Synthes variable angle locking plate and multiple screws on 11/03/[address] Corey Dickson, orthopedic surgeon. C. Using a long leg knee immobilizer. D. Allowed up to 25% weightbearing on the right leg with active and passive range of motion as o f 12/14/2017. 3. Hypertension. 4. Chronic obstructive pulmonary disease. 5. Diabetes mellitus type 2. A. Diet controlled. Hemoglobin A1c 5.6 as of 11/26/2017. 6. Generalized osteoarthritis. 7. Hypercholesterolemia. 8. Diastolic dysfunction. A. No evidence of acute congestive heart failure as of 12/26/2017. 9. Spondylosis of the lumbar spine. 10. Obesity. 11. Seborrheic dermatitis. 12. Pain in the right hand secondary to arthritis in the first [facility] joint. A. Pain in the right hand over the 1st [facility] joint has resolved as of 12/09/2017. 13. Urinary tract infection as of 12/08/2017. A. Resolved as of 12/19/2017. PLAN: Continue present care. Continue physical therapy. The patient is making gradual slow progres s. As a right distal femur heals she will be able to gradually began weightbearing more on that righ t side which will begin to allow her to ambulate.
[2017-12-26] MEDS: Mometasone Furoate 120 PUFF 220 MCG INH SCH (17:59)
[2017-12-26] MEDS: Atorvastatin Calcium 10 MG TAB PO SCH (20:22)
[2017-12-26] MEDS: Latanoprost 0.005% Ophth Soln 2.5 ml Bottle EA EYE SCH (20:24)
[2017-12-27] MEDS: cloNIDine 0.1 MG TAB PO SCH ×3 (09:25→20:21)
[2017-12-27] MEDS: Aspirin 81 mg Enteric Coated Tablet PO SCH (09:25)
[2017-12-27] MEDS: Vit A,C & E/Lutein/Minerals Tablet PO SCH ×2 (09:25→20:21)
[2017-12-27] MEDS: Fish Oil 1,000 MG CAP PO SCH ×3 (09:25→20:21)
[2017-12-27] MEDS: Lisinopril 10 MG TAB PO SCH ×2 (09:26→20:21)
[2017-12-27] MEDS: hydrALAZINE 25 MG TAB PO SCH ×3 (09:26→20:23)
[2017-12-27] MEDS: Furosemide 40 MG TAB PO SCH (09:26)
[2017-12-27] MEDS: Metoprolol Tartrate 50 MG TAB PO SCH ×2 (09:26→20:23)
[2017-12-27] MEDS: Calcium Carbonate 500 MG ChewTAB PO SCH (09:27)
[2017-12-27] MEDS: Clotrimazole 1% Cream 15 GM TUBE TOP SCH (09:27)
[2017-12-27] MEDS: Ketoconazole 2% Cream 15 gm Tube TOP SCH (09:27)
[2017-12-27] MEDS: Enoxaparin Sodium 40 MG/0.4 ML SYRINGE SC SCH (09:27)
[2017-12-27] MEDS: Polyethylene Glycol OPTH DROP 15 ML BOT EA EYE SCH (12:08)
[2017-12-27] MEDS: Mometasone Furoate 120 PUFF 220 MCG INH SCH (18:11)
[2017-12-27] MEDS: Latanoprost 0.005% Ophth Soln 2.5 ml Bottle EA EYE SCH (20:20)
[2017-12-27] MEDS: Atorvastatin Calcium 10 MG TAB PO SCH (20:22)
[2017-12-28] MEDS: Enoxaparin Sodium 40 MG/0.4 ML SYRINGE SC SCH (08:28)
[2017-12-28] MEDS: Calcium Carbonate 500 MG ChewTAB PO SCH (08:29)
[2017-12-28] MEDS: Metoprolol Tartrate 50 MG TAB PO SCH ×2 (08:32→20:59)
[2017-12-28] MEDS: Furosemide 40 MG TAB PO SCH (08:32)
[2017-12-28] MEDS: cloNIDine 0.1 MG TAB PO SCH ×3 (08:32→20:59)
[2017-12-28] MEDS: Vit A,C & E/Lutein/Minerals Tablet PO SCH ×2 (08:32→20:59)
[2017-12-28] MEDS: Fish Oil 1,000 MG CAP PO SCH ×3 (08:32→21:00)
[2017-12-28] MEDS: hydrALAZINE 25 MG TAB PO SCH ×3 (08:33→20:59)
[2017-12-28] MEDS: Aspirin 81 mg Enteric Coated Tablet PO SCH (08:33)
[2017-12-28] MEDS: Lisinopril 10 MG TAB PO SCH ×2 (08:33→21:00)
[2017-12-28] MEDS: Clotrimazole 1% Cream 15 GM TUBE TOP SCH (08:34)
[2017-12-28] MEDS: Ketoconazole 2% Cream 15 gm Tube TOP SCH (08:34)
--- NOTE | 2017-12-28 10:03 | PRG ---
DATE OF SERVICE: 12/28/2017 SUBJECTIVE: The patient said she is doing better. She is doing better with her transfers. She is a ble to partially weightbear on that right leg and scoot to help her transfer from chair to a bedside commode. She is feeling better. The leg is feeling better. She is due to see Dr. Dickson, her ortho pedic surgeon and follow up on 01/25/2017. The patient also visited with the front office about her continual stay and she has worked out a situation that she is comfortable with. OBJECTIVE: GENERAL: Patient is alert, appears to be in no distress. VITAL SIGNS: Show a temperature 97.3, pulse 66, respirations 22, O2 sat 93% on room air, blood press ure 129/63. LUNGS: Clear. HEART: Regular rate. LOWER EXTREMITIES: No edema. Incision over the lateral aspect of the right leg is healed. ASSESSMENT: 1. Generalized weakness. A. Requires assistance with ADLs. B. Complicated by gait abnormality with nonweightbearing on the right leg. C. Secondary to a fall and supracondylar fracture of the right femur with open reduction interna l fixation on 11/03/2017. D. Continued improvement in her general strength. Weightbearing up to 25% on the right leg. Ab le to assist more with transfers as of 12/28/2017. 2. Supracondylar fracture of the right femur. A. Secondary to a fall on a patch of ice. B. Required open reduction internal fixation with a Synthes variable angle locking plate and multiple screws on 11/03/[address] Corey Dickson, orthopedic surgeon. C. Using a long leg knee immobilizer. D. Allowed up to 25% weightbearing on the right leg with active and passive range of motion as o f 12/14/2017. 3. Hypertension. A. Controlled as of 12/28/2017. 4. Chronic obstructive pulmonary disease. 5. Diabetes mellitus type 2. A. Diet controlled. Hemoglobin A1c 5.6 as of 11/26/2017. 6. Generalized osteoarthritis. 7. Hypercholesterolemia. 8. Diastolic dysfunction. A. No evidence of acute congestive heart failure as of 12/26/2017. 9. Spondylosis of the lumbar spine. 10. Obesity. 11. Seborrheic dermatitis. 12. Pain in the right hand secondary to arthritis in the first [place] joint. A. Pain in the right hand over the 1st [facility] joint has resolved as of 12/09/2017. 13. Urinary tract infection as of 12/08/2017. A. Resolved as of 12/19/2017. PLAN: Continue present care. Continue physical therapy.
[2017-12-28] MEDS: Polyethylene Glycol OPTH DROP 15 ML BOT EA EYE SCH (11:40)
[2017-12-28] MEDS: Mometasone Furoate 120 PUFF 220 MCG INH SCH (18:06)
[2017-12-28] MEDS: Atorvastatin Calcium 10 MG TAB PO SCH (20:59)
[2017-12-28] MEDS: Latanoprost 0.005% Ophth Soln 2.5 ml Bottle EA EYE SCH (21:00)
[2017-12-29] MEDS: Enoxaparin Sodium 40 MG/0.4 ML SYRINGE SC SCH (08:53)
[2017-12-29] MEDS: Metoprolol Tartrate 50 MG TAB PO SCH ×2 (08:54→20:16)
[2017-12-29] MEDS: Fish Oil 1,000 MG CAP PO SCH ×3 (08:54→20:14)
[2017-12-29] MEDS: Vit A,C & E/Lutein/Minerals Tablet PO SCH ×2 (08:54→20:14)
[2017-12-29] MEDS: hydrALAZINE 25 MG TAB PO SCH ×3 (08:54→20:17)
[2017-12-29] MEDS: Furosemide 40 MG TAB PO SCH (08:54)
[2017-12-29] MEDS: Lisinopril 10 MG TAB PO SCH ×2 (08:54→20:15)
[2017-12-29] MEDS: cloNIDine 0.1 MG TAB PO SCH ×3 (08:55→20:16)
[2017-12-29] MEDS: Clotrimazole 1% Cream 15 GM TUBE TOP SCH (08:55)
[2017-12-29] MEDS: Calcium Carbonate 500 MG ChewTAB PO SCH (08:55)
[2017-12-29] MEDS: Aspirin 81 mg Enteric Coated Tablet PO SCH (08:55)
[2017-12-29] MEDS: Ketoconazole 2% Cream 15 gm Tube TOP SCH (08:55)
[2017-12-29] MEDS: Polyethylene Glycol OPTH DROP 15 ML BOT EA EYE SCH (12:57)
[2017-12-29] MEDS: Mometasone Furoate 120 PUFF 220 MCG INH SCH (18:05)
[2017-12-29] MEDS: Latanoprost 0.005% Ophth Soln 2.5 ml Bottle EA EYE SCH (20:15)
[2017-12-29] MEDS: Atorvastatin Calcium 10 MG TAB PO SCH (20:17)
[2017-12-30] MEDS: Enoxaparin Sodium 40 MG/0.4 ML SYRINGE SC SCH (09:07)
[2017-12-30] MEDS: Calcium Carbonate 500 MG ChewTAB PO SCH (09:07)
[2017-12-30] MEDS: Vit A,C & E/Lutein/Minerals Tablet PO SCH ×2 (09:08→20:34)
[2017-12-30] MEDS: Fish Oil 1,000 MG CAP PO SCH ×3 (09:08→20:34)
[2017-12-30] MEDS: Metoprolol Tartrate 50 MG TAB PO SCH ×2 (09:09→20:35)
[2017-12-30] MEDS: Aspirin 81 mg Enteric Coated Tablet PO SCH (09:09)
[2017-12-30] MEDS: Lisinopril 10 MG TAB PO SCH ×2 (09:09→20:33)
[2017-12-30] MEDS: cloNIDine 0.1 MG TAB PO SCH ×3 (09:10→20:34)
[2017-12-30] MEDS: Clotrimazole 1% Cream 15 GM TUBE TOP SCH (09:10)
[2017-12-30] MEDS: Furosemide 40 MG TAB PO SCH (09:28)
[2017-12-30] MEDS: hydrALAZINE 25 MG TAB PO SCH ×3 (09:28→20:35)
[2017-12-30] MEDS: Ketoconazole 2% Cream 15 gm Tube TOP SCH (09:56)
[2017-12-30] MEDS: Polyethylene Glycol OPTH DROP 15 ML BOT EA EYE SCH (13:23)
--- NOTE | 2017-12-30 14:37 | PRG ---
DATE OF SERVICE: 12/30/2017 SUBJECTIVE: The patient said she is doing really good. She is doing a little better with her transf ers and she is working hard in the Physical Therapy Department. She does very well on the NuStep exe rcise machine that allows her to bicycle her legs and move her arms. Physical therapist said that jakub fuentes is doing better particular with her transfer, seems to do better without the knee immobilizer than with it. She still just had only up to 25% weightbearing on that right leg. OBJECTIVE: GENERAL: The patient sitting on the NuStep, exercising and she appears very comfortable and in no di stress. VITAL SIGNS: Her temperature is 98.4, pulse 69, respirations were 22, O2 sat 93% on room air, blood pressure 140/66. LUNGS: Clear. HEART: Regular rate. EXTREMITIES: No edema. ASSESSMENT: 1. Generalized weakness. A. Requires assistance with ADLs. B. Complicated by gait abnormality with nonweightbearing on the right leg. C. Secondary to a fall and supracondylar fracture of the right femur with open reduction interna l fixation on 11/03/2017. D. Continued improvement in her general strength. Weightbearing up to 25% on the right leg. Ab le to assist more with transfers as of 12/30/2017. 2. Supracondylar fracture of the right femur. A. Secondary to a fall on a patch of ice. B. Required open reduction internal fixation with a Synthes variable angle locking plate and multiple screws on 11/03/[address] Corey Dickson, orthopedic surgeon. C. Using a long leg knee immobilizer. D. Allowed up to 25% weightbearing on the right leg with active and passive range of motion as o f 12/14/2017. 3. Hypertension. A. Controlled as of 12/28/2017. 4. Chronic obstructive pulmonary disease. 5. Diabetes mellitus type 2. A. Diet controlled. Hemoglobin A1c 5.6 as of 11/26/2017. 6. Generalized osteoarthritis. 7. Hypercholesterolemia. 8. Diastolic dysfunction. A. No evidence of acute congestive heart failure as of 12/26/2017. 9. Spondylosis of the lumbar spine. 10. Obesity. 11. Seborrheic dermatitis. 12. Pain in the right hand secondary to arthritis in the first LONGTERM joint. A. Pain in the right hand over the 1st LONGTERM joint has resolved as of 12/09/2017. 13. Urinary tract infection as of 12/08/2017. A. Resolved as of 12/19/2017. PLAN: Continue physical therapy.
[2017-12-30] MEDS: Mometasone Furoate 120 PUFF 220 MCG INH SCH (17:56)
[2017-12-30] MEDS: Atorvastatin Calcium 10 MG TAB PO SCH (20:31)
[2017-12-30] MEDS: Latanoprost 0.005% Ophth Soln 2.5 ml Bottle EA EYE SCH (20:36)
[2017-12-31] MEDS: Calcium Carbonate 500 MG ChewTAB PO SCH (09:25)
[2017-12-31] MEDS: Enoxaparin Sodium 40 MG/0.4 ML SYRINGE SC SCH (09:25)
[2017-12-31] MEDS: Metoprolol Tartrate 50 MG TAB PO SCH ×2 (09:26→21:09)
[2017-12-31] MEDS: Lisinopril 10 MG TAB PO SCH ×2 (09:26→21:07)
[2017-12-31] MEDS: Fish Oil 1,000 MG CAP PO SCH ×3 (09:26→21:10)
[2017-12-31] MEDS: Aspirin 81 mg Enteric Coated Tablet PO SCH (09:26)
[2017-12-31] MEDS: hydrALAZINE 25 MG TAB PO SCH ×3 (09:26→21:10)
[2017-12-31] MEDS: cloNIDine 0.1 MG TAB PO SCH ×3 (09:26→21:10)
[2017-12-31] MEDS: Vit A,C & E/Lutein/Minerals Tablet PO SCH ×2 (09:27→21:07)
[2017-12-31] MEDS: Clotrimazole 1% Cream 15 GM TUBE TOP SCH (09:27)
[2017-12-31] MEDS: Ketoconazole 2% Cream 15 gm Tube TOP SCH (09:27)
[2017-12-31] MEDS: Furosemide 40 MG TAB PO SCH (09:27)
[2017-12-31] MEDS: Polyethylene Glycol OPTH DROP 15 ML BOT EA EYE SCH (12:18)
[2017-12-31] MEDS: Mometasone Furoate 120 PUFF 220 MCG INH SCH (18:20)
[2017-12-31] MEDS: Atorvastatin Calcium 10 MG TAB PO SCH (21:09)
[2017-12-31] MEDS: Latanoprost 0.005% Ophth Soln 2.5 ml Bottle EA EYE SCH (21:11)
[2018-01-01] MEDS: Furosemide 40 MG TAB PO SCH (08:28)
[2018-01-01] MEDS: cloNIDine 0.1 MG TAB PO SCH ×3 (08:28→20:34)
[2018-01-01] MEDS: Enoxaparin Sodium 40 MG/0.4 ML SYRINGE SC SCH (08:28)
[2018-01-01] MEDS: Metoprolol Tartrate 50 MG TAB PO SCH ×2 (08:28→20:36)
[2018-01-01] MEDS: hydrALAZINE 25 MG TAB PO SCH ×3 (08:28→20:34)
[2018-01-01] MEDS: Lisinopril 10 MG TAB PO SCH ×2 (08:29→20:35)
[2018-01-01] MEDS: Vit A,C & E/Lutein/Minerals Tablet PO SCH ×2 (08:29→20:36)
[2018-01-01] MEDS: Fish Oil 1,000 MG CAP PO SCH ×3 (08:29→20:34)
[2018-01-01] MEDS: Clotrimazole 1% Cream 15 GM TUBE TOP SCH (08:30)
[2018-01-01] MEDS: Ketoconazole 2% Cream 15 gm Tube TOP SCH (08:30)
[2018-01-01] MEDS: Calcium Carbonate 500 MG ChewTAB PO SCH (08:30)
[2018-01-01] MEDS: Aspirin 81 mg Enteric Coated Tablet PO SCH (08:30)
[2018-01-01] MEDS: Polyethylene Glycol OPTH DROP 15 ML BOT EA EYE SCH (13:15)
[2018-01-01] MEDS: Mometasone Furoate 120 PUFF 220 MCG INH SCH (18:21)
[2018-01-01] MEDS: Atorvastatin Calcium 10 MG TAB PO SCH (20:34)
[2018-01-01] MEDS: Latanoprost 0.005% Ophth Soln 2.5 ml Bottle EA EYE SCH (20:35)
[2018-01-02] MEDS: Vit A,C & E/Lutein/Minerals Tablet PO SCH ×2 (08:20→20:15)
[2018-01-02] MEDS: Enoxaparin Sodium 40 MG/0.4 ML SYRINGE SC SCH (08:20)
[2018-01-02] MEDS: Aspirin 81 mg Enteric Coated Tablet PO SCH (08:21)
[2018-01-02] MEDS: Fish Oil 1,000 MG CAP PO SCH ×3 (08:21→20:13)
[2018-01-02] MEDS: Calcium Carbonate 500 MG ChewTAB PO SCH (08:21)
[2018-01-02] MEDS: hydrALAZINE 25 MG TAB PO SCH ×3 (08:23→20:15)
[2018-01-02] MEDS: Ketoconazole 2% Cream 15 gm Tube TOP SCH (08:23)
[2018-01-02] MEDS: Clotrimazole 1% Cream 15 GM TUBE TOP SCH (08:23)
[2018-01-02] MEDS: cloNIDine 0.1 MG TAB PO SCH ×3 (08:24→20:14)
[2018-01-02] MEDS: Metoprolol Tartrate 50 MG TAB PO SCH ×2 (08:44→20:15)
[2018-01-02] MEDS: Furosemide 40 MG TAB PO SCH (08:44)
[2018-01-02] MEDS: Lisinopril 10 MG TAB PO SCH ×2 (08:48→20:12)
[2018-01-02] MEDS: Polyethylene Glycol OPTH DROP 15 ML BOT EA EYE SCH (12:58)
--- NOTE | 2018-01-02 15:31 | PRG ---
DATE OF SERVICE: 01/02/2018 SUBJECTIVE: The patient says she has been doing well. She has continued to work with physical [employer] estrellita, able to assist more with transference. This morning she is in the Physical Therapy Department an d is working out on a NuStep that exercises her leg and arms. She appears very comfortable and says she has no complaints. OBJECTIVE: The patient is alert, in no distress. Her vital signs show a temperature 98.2, pulse 66, respirations 22, O2 sat on room air 94%, blood pressure 147/67. Lungs are clear. Heart, regular ra te. Extremities, no edema. ASSESSMENT: 1. Generalized weakness. A. Requires assistance with ADLs. B. Complicated by gait abnormality with nonweightbearing on the right leg. C. Secondary to a fall and supracondylar fracture of the right femur with open reduction interna l fixation on 11/03/2017. D. Continued improvement in her general strength. Weightbearing up to 25% on the right leg. Ab le to assist more with transfers as of 01/02/2018. 2. Supracondylar fracture of the right femur. A. Secondary to a fall on a patch of ice. B. Required open reduction internal fixation with a Synthes variable angle locking plate and multiple screws on 11/03/[address] Corey Dickson, orthopedic surgeon. C. Using a long leg knee immobilizer. D. Allowed up to 25% weightbearing on the right leg with active and passive range of motion as o f 12/14/2017. 3. Hypertension. A. Controlled as of 01/02/2018. 4. Chronic obstructive pulmonary disease. 5. Diabetes mellitus type 2. A. Diet controlled. Hemoglobin A1c 5.6 as of 11/26/2017. 6. Generalized osteoarthritis. 7. Hypercholesterolemia. 8. Diastolic dysfunction. A. No evidence of acute congestive heart failure as of 01/02/2018. 9. Spondylosis of the lumbar spine. 10. Obesity. 11. Seborrheic dermatitis. 12. Pain in the right hand secondary to arthritis in the first CARE HOME joint. A. Pain in the right hand over the 1st CARE HOME joint has resolved as of 12/09/2017. 13. Urinary tract infection as of 12/08/2017. A. Resolved as of 12/19/2017. PLAN: Continue physical therapy.
[2018-01-02] MEDS: Mometasone Furoate 120 PUFF 220 MCG INH SCH (17:48)
[2018-01-02] MEDS: Atorvastatin Calcium 10 MG TAB PO SCH (20:13)
[2018-01-02] MEDS: Latanoprost 0.005% Ophth Soln 2.5 ml Bottle EA EYE SCH (20:17)
[2018-01-03] MEDS: Aspirin 81 mg Enteric Coated Tablet PO SCH (08:04)
[2018-01-03] MEDS: Calcium Carbonate 500 MG ChewTAB PO SCH (08:04)
[2018-01-03] MEDS: cloNIDine 0.1 MG TAB PO SCH ×3 (08:06→20:31)
[2018-01-03] MEDS: Furosemide 40 MG TAB PO SCH (08:07)
[2018-01-03] MEDS: hydrALAZINE 25 MG TAB PO SCH ×3 (08:07→20:32)
[2018-01-03] MEDS: Enoxaparin Sodium 40 MG/0.4 ML SYRINGE SC SCH (08:07)
[2018-01-03] MEDS: Fish Oil 1,000 MG CAP PO SCH ×3 (08:07→20:31)
[2018-01-03] MEDS: Clotrimazole 1% Cream 15 GM TUBE TOP SCH (08:07)
[2018-01-03] MEDS: Ketoconazole 2% Cream 15 gm Tube TOP SCH (08:08)
[2018-01-03] MEDS: Lisinopril 10 MG TAB PO SCH ×2 (08:08→20:27)
[2018-01-03] MEDS: Metoprolol Tartrate 50 MG TAB PO SCH ×2 (08:09→20:30)
[2018-01-03] MEDS: Vit A,C & E/Lutein/Minerals Tablet PO SCH ×2 (08:09→20:34)
[2018-01-03] MEDS: Polyethylene Glycol OPTH DROP 15 ML BOT EA EYE SCH (11:44)
[2018-01-03] MEDS: Mometasone Furoate 120 PUFF 220 MCG INH SCH (18:26)
[2018-01-03] MEDS: Atorvastatin Calcium 10 MG TAB PO SCH (20:27)
[2018-01-03] MEDS: Latanoprost 0.005% Ophth Soln 2.5 ml Bottle EA EYE SCH (20:35)
[2018-01-04] MEDS: Lisinopril 10 MG TAB PO SCH ×2 (08:55→20:51)
[2018-01-04] MEDS: Calcium Carbonate 500 MG ChewTAB PO SCH (08:55)
[2018-01-04] MEDS: Enoxaparin Sodium 40 MG/0.4 ML SYRINGE SC SCH (08:57)
[2018-01-04] MEDS: cloNIDine 0.1 MG TAB PO SCH ×3 (08:58→20:52)
[2018-01-04] MEDS: Fish Oil 1,000 MG CAP PO SCH ×3 (08:58→20:49)
[2018-01-04] MEDS: Vit A,C & E/Lutein/Minerals Tablet PO SCH ×2 (08:58→20:49)
[2018-01-04] MEDS: hydrALAZINE 25 MG TAB PO SCH ×3 (08:58→20:51)
[2018-01-04] MEDS: Furosemide 40 MG TAB PO SCH (08:58)
[2018-01-04] MEDS: Metoprolol Tartrate 50 MG TAB PO SCH ×2 (08:58→20:50)
[2018-01-04] MEDS: Aspirin 81 mg Enteric Coated Tablet PO SCH (08:58)
[2018-01-04] MEDS: Clotrimazole 1% Cream 15 GM TUBE TOP SCH (08:59)
[2018-01-04] MEDS: Ketoconazole 2% Cream 15 gm Tube TOP SCH (09:00)
[2018-01-04] MEDS: Polyethylene Glycol OPTH DROP 15 ML BOT EA EYE SCH (11:53)
--- NOTE | 2018-01-04 13:41 | PRG ---
DATE OF SERVICE: 01/04/2018 SUBJECTIVE: The patient said she is doing good. She has no complaint. She continues to work with p EQUISOsical therapy and gaining strength. She is doing better on her transfers. She is becoming indepen dent with her wheelchair mobility. OBJECTIVE: The patient is sitting in a wheelchair, propelling herself this morning. She is alert, ap pears very comfortable in no distress. Her temperature is 96.9, pulse 70, respirations 18, O2 sat 97 % on room air, blood pressure 142/64. Lungs are clear. Heart, regular rate. Extremities, no edema. ASSESSMENT: 1. Generalized weakness. A. Requires assistance with ADLs. B. Complicated by gait abnormality with nonweightbearing on the right leg. C. Secondary to a fall and supracondylar fracture of the right femur with open reduction interna l fixation on 11/03/2017. D. Continued improvement in her general strength. Weightbearing up to 25% on the right leg. Ab le to assist more with transfers as of 01/04/2018. 2. Supracondylar fracture of the right femur. A. Secondary to a fall on a patch of ice. B. Required open reduction internal fixation with a Synthes variable angle locking plate and multiple screws on 11/03/[address] Corey Dickson, orthopedic surgeon. C. Using a long leg knee immobilizer. D. Allowed up to 25% weightbearing on the right leg with active and passive range of motion as o f 12/14/2017. 3. Hypertension. A. Controlled as of 01/02/2018. 4. Chronic obstructive pulmonary disease. 5. Diabetes mellitus type 2. A. Diet controlled. Hemoglobin A1c 5.6 as of 11/26/2017. 6. Generalized osteoarthritis. 7. Hypercholesterolemia. 8. Diastolic dysfunction. A. No evidence of acute congestive heart failure as of 01/02/2018. 9. Spondylosis of the lumbar spine. 10. Obesity. 11. Seborrheic dermatitis. 12. Pain in the right hand secondary to arthritis in the first FPC joint. A. Pain in the right hand over the 1st FPC joint has resolved as of 12/09/2017. 13. Urinary tract infection as of 12/08/2017. A. Resolved as of 12/19/2017. PLAN: The patient has continued to improve. I think once she is allowed more weightbearing on the r ight leg that she is going to do very well. She is not due to see Dr. Dickson back until January. We wilda astorga continue physical therapy. Continue general strengthening exercise and continue educating patient on her self-care.
[2018-01-04] MEDS: Mometasone Furoate 120 PUFF 220 MCG INH SCH (18:09)
[2018-01-04] MEDS: Atorvastatin Calcium 10 MG TAB PO SCH (20:49)
[2018-01-04] MEDS: Latanoprost 0.005% Ophth Soln 2.5 ml Bottle EA EYE SCH (20:53)
[2018-01-05] MEDS: Fish Oil 1,000 MG CAP PO SCH ×3 (08:36→20:37)
[2018-01-05] MEDS: Vit A,C & E/Lutein/Minerals Tablet PO SCH ×2 (08:36→20:37)
[2018-01-05] MEDS: Calcium Carbonate 500 MG ChewTAB PO SCH (08:36)
[2018-01-05] MEDS: cloNIDine 0.1 MG TAB PO SCH ×3 (08:36→20:38)
[2018-01-05] MEDS: hydrALAZINE 25 MG TAB PO SCH ×3 (08:37→20:38)
[2018-01-05] MEDS: Furosemide 40 MG TAB PO SCH (08:37)
[2018-01-05] MEDS: Lisinopril 10 MG TAB PO SCH ×2 (08:37→20:38)
[2018-01-05] MEDS: Metoprolol Tartrate 50 MG TAB PO SCH ×2 (08:37→20:38)
[2018-01-05] MEDS: Aspirin 81 mg Enteric Coated Tablet PO SCH (08:37)
[2018-01-05] MEDS: Enoxaparin Sodium 40 MG/0.4 ML SYRINGE SC SCH (08:38)
[2018-01-05] MEDS: Clotrimazole 1% Cream 15 GM TUBE TOP SCH (08:38)
[2018-01-05] MEDS: Ketoconazole 2% Cream 15 gm Tube TOP SCH (08:38)
[2018-01-05] MEDS: Polyethylene Glycol OPTH DROP 15 ML BOT EA EYE SCH (11:56)
[2018-01-05] MEDS: Mometasone Furoate 120 PUFF 220 MCG INH SCH (17:49)
[2018-01-05] MEDS: Atorvastatin Calcium 10 MG TAB PO SCH (20:37)
[2018-01-05] MEDS: Latanoprost 0.005% Ophth Soln 2.5 ml Bottle EA EYE SCH (20:39)
[2018-01-06] MEDS: Fish Oil 1,000 MG CAP PO SCH ×3 (08:27→20:40)
[2018-01-06] MEDS: Calcium Carbonate 500 MG ChewTAB PO SCH (08:27)
[2018-01-06] MEDS: Enoxaparin Sodium 40 MG/0.4 ML SYRINGE SC SCH (08:27)
[2018-01-06] MEDS: Lisinopril 10 MG TAB PO SCH ×2 (08:28→20:41)
[2018-01-06] MEDS: Metoprolol Tartrate 50 MG TAB PO SCH ×2 (08:28→20:40)
[2018-01-06] MEDS: Aspirin 81 mg Enteric Coated Tablet PO SCH (08:29)
[2018-01-06] MEDS: cloNIDine 0.1 MG TAB PO SCH ×3 (08:29→20:40)
[2018-01-06] MEDS: Furosemide 40 MG TAB PO SCH (08:29)
[2018-01-06] MEDS: hydrALAZINE 25 MG TAB PO SCH ×3 (08:29→20:41)
[2018-01-06] MEDS: Vit A,C & E/Lutein/Minerals Tablet PO SCH ×2 (08:30→20:40)
[2018-01-06] MEDS: Clotrimazole 1% Cream 15 GM TUBE TOP SCH (08:30)
[2018-01-06] MEDS: Ketoconazole 2% Cream 15 gm Tube TOP SCH (08:30)
--- NOTE | 2018-01-06 10:56 | PRG ---
DATE OF SERVICE: 01/06/2018 SUBJECTIVE: The patient said she is doing better. She continues to work hard on the [employer], which exercises her legs and her arms. Physical therapy is beginning to work with her, ambulat ing with toe touch on the right. She is continuing to improve with her ability to transfer. She is feeling much better and much more competent. OBJECTIVE: GENERAL: The patient is sitting up in her chair, eating breakfast, having already completed her phys ical therapy from this morning and had her shower. She is in good spirits, looks very comfortable an d in no distress. VITAL SIGNS: Shows blood pressure of 141/68, her temperature is 98.5, pulse 78, respirations 18, O2 sat 94% on room air. LUNGS: Clear. HEART: Regular rate. EXTREMITIES: No edema. Incision well healed. ASSESSMENT: 1. Generalized weakness. A. Requires assistance with ADLs. B. Complicated by gait abnormality with nonweightbearing on the right leg. C. Secondary to a fall and supracondylar fracture of the right femur with open reduction interna l fixation on 11/03/2017. D. Continued improvement in her overall strength. Weight bearing up to 25% on the right, beginn ing to be trained for toe touch ambulation with the right leg as of 01/06/2018. 2. Supracondylar fracture of the right femur. A. Secondary to a fall on a patch of ice. B. Required open reduction internal fixation with a Synthes variable angle locking plate and multiple screws on 11/03/[address] Corey Dickson, orthopedic surgeon. C. Using a long leg knee immobilizer. D. Allowed up to 25% weightbearing on the right leg with active and passive range of motion as o f 12/14/2017. 3. Hypertension. A. Controlled as of 01/06/2018. 4. Chronic obstructive pulmonary disease. 5. Diabetes mellitus type 2. A. Diet controlled. Hemoglobin A1c 5.6 as of 11/26/2017. 6. Generalized osteoarthritis. 7. Hypercholesterolemia. 8. Diastolic dysfunction. A. No evidence of acute congestive heart failure as of 01/02/2018. 9. Spondylosis of the lumbar spine. 10. Obesity. 11. Seborrheic dermatitis. 12. Pain in the right hand secondary to arthritis in the first PENITENTIARY joint. A. Pain in the right hand over the 1st PENITENTIARY joint has resolved as of 12/09/2017. 13. Urinary tract infection as of 12/08/2017. A. Resolved as of 12/19/2017. PLAN: The patient is making excellent progress, gaining overall improvement in her strength. We wilda l continue physical therapy.
[2018-01-06] MEDS: Polyethylene Glycol OPTH DROP 15 ML BOT EA EYE SCH (11:59)
[2018-01-06] MEDS: Mometasone Furoate 120 PUFF 220 MCG INH SCH (17:51)
[2018-01-06] MEDS: Atorvastatin Calcium 10 MG TAB PO SCH (20:40)
[2018-01-06] MEDS: Latanoprost 0.005% Ophth Soln 2.5 ml Bottle EA EYE SCH (20:40)
[2018-01-07] MEDS: Calcium Carbonate 500 MG ChewTAB PO SCH (08:12)
[2018-01-07] MEDS: cloNIDine 0.1 MG TAB PO SCH ×3 (08:35→20:26)
[2018-01-07] MEDS: Aspirin 81 mg Enteric Coated Tablet PO SCH (08:35)
[2018-01-07] MEDS: Clotrimazole 1% Cream 15 GM TUBE TOP SCH (08:36)
[2018-01-07] MEDS: Enoxaparin Sodium 40 MG/0.4 ML SYRINGE SC SCH (08:36)
[2018-01-07] MEDS: hydrALAZINE 25 MG TAB PO SCH ×3 (08:37→20:26)
[2018-01-07] MEDS: Fish Oil 1,000 MG CAP PO SCH ×3 (08:37→20:25)
[2018-01-07] MEDS: Metoprolol Tartrate 50 MG TAB PO SCH ×2 (08:38→20:26)
[2018-01-07] MEDS: Ketoconazole 2% Cream 15 gm Tube TOP SCH (08:38)
[2018-01-07] MEDS: Lisinopril 10 MG TAB PO SCH ×2 (08:38→20:26)
[2018-01-07] MEDS: Furosemide 40 MG TAB PO SCH (08:39)
[2018-01-07] MEDS: Vit A,C & E/Lutein/Minerals Tablet PO SCH ×2 (08:39→20:26)
[2018-01-07] MEDS: Polyethylene Glycol OPTH DROP 15 ML BOT EA EYE SCH (11:55)
[2018-01-07] MEDS: Mometasone Furoate 120 PUFF 220 MCG INH SCH (17:58)
[2018-01-07] MEDS: Latanoprost 0.005% Ophth Soln 2.5 ml Bottle EA EYE SCH (20:25)
[2018-01-07] MEDS: Atorvastatin Calcium 10 MG TAB PO SCH (20:25)
[2018-01-08] MEDS: Calcium Carbonate 500 MG ChewTAB PO SCH (07:26)
[2018-01-08] MEDS: Aspirin 81 mg Enteric Coated Tablet PO SCH (08:51)
[2018-01-08] MEDS: cloNIDine 0.1 MG TAB PO SCH ×3 (08:52→20:22)
[2018-01-08] MEDS: Ketoconazole 2% Cream 15 gm Tube TOP SCH (08:52)
[2018-01-08] MEDS: Lisinopril 10 MG TAB PO SCH ×2 (08:53→20:23)
[2018-01-08] MEDS: Clotrimazole 1% Cream 15 GM TUBE TOP SCH (08:53)
[2018-01-08] MEDS: Metoprolol Tartrate 50 MG TAB PO SCH ×2 (08:54→20:24)
[2018-01-08] MEDS: Fish Oil 1,000 MG CAP PO SCH ×3 (08:54→20:22)
[2018-01-08] MEDS: Furosemide 40 MG TAB PO SCH (08:54)
[2018-01-08] MEDS: Enoxaparin Sodium 40 MG/0.4 ML SYRINGE SC SCH (08:54)
[2018-01-08] MEDS: hydrALAZINE 25 MG TAB PO SCH ×3 (08:55→20:23)
[2018-01-08] MEDS: Vit A,C & E/Lutein/Minerals Tablet PO SCH ×2 (08:56→20:24)
[2018-01-08] MEDS: Polyethylene Glycol OPTH DROP 15 ML BOT EA EYE SCH (11:59)
[2018-01-08] MEDS: Mometasone Furoate 120 PUFF 220 MCG INH SCH (18:16)
[2018-01-08] MEDS: Atorvastatin Calcium 10 MG TAB PO SCH (20:22)
[2018-01-08] MEDS: Latanoprost 0.005% Ophth Soln 2.5 ml Bottle EA EYE SCH (20:24)
[2018-01-09] MEDS: Calcium Carbonate 500 MG ChewTAB PO SCH (08:14)
[2018-01-09] MEDS: Clotrimazole 1% Cream 15 GM TUBE TOP SCH (08:15)
[2018-01-09] MEDS: Aspirin 81 mg Enteric Coated Tablet PO SCH (08:15)
[2018-01-09] MEDS: cloNIDine 0.1 MG TAB PO SCH ×3 (08:15→20:31)
[2018-01-09] MEDS: Enoxaparin Sodium 40 MG/0.4 ML SYRINGE SC SCH (08:15)
[2018-01-09] MEDS: Ketoconazole 2% Cream 15 gm Tube TOP SCH (08:16)
[2018-01-09] MEDS: Fish Oil 1,000 MG CAP PO SCH ×3 (08:16→20:27)
[2018-01-09] MEDS: Furosemide 40 MG TAB PO SCH (08:16)
[2018-01-09] MEDS: hydrALAZINE 25 MG TAB PO SCH ×3 (08:16→20:31)
[2018-01-09] MEDS: Lisinopril 10 MG TAB PO SCH ×2 (08:17→20:27)
[2018-01-09] MEDS: Metoprolol Tartrate 50 MG TAB PO SCH ×2 (08:17→20:27)
[2018-01-09] MEDS: Vit A,C & E/Lutein/Minerals Tablet PO SCH ×2 (08:17→20:26)
--- NOTE | 2018-01-09 09:47 | PRG ---
DATE OF SERVICE: 01/09/2018 SUBJECTIVE: The patient said she is doing well. She is making further advancement with her upper katerin dy strength and is walking just a few steps with just toe-touching with the right leg. OBJECTIVE: The patient is sitting on a NuStep working out her arms and legs. She is alert, appears very comfortable, in no distress. Temp 97.9, pulse 69, respirations 22, O2 sat 95%, blood pressure 1 45/68. Her lungs are clear. Heart, regular rate. Extremities, no edema. ASSESSMENT: 1. Generalized weakness. A. Requires assistance with ADLs. B. Complicated by gait abnormality with nonweightbearing on the right leg. C. Secondary to a fall and supracondylar fracture of the right femur with open reduction interna l fixation on 11/03/2017. D. Continued improvement in overall strength, weightbearing up to 25% on the right. Beginning t o ambulate short distance with just toe touching on the right as of 01/09/2018. 2. Supracondylar fracture of the right femur. A. Secondary to a fall on a patch of ice. B. Required open reduction internal fixation with a Synthes variable angle locking plate and multiple screws on 11/03/[address] Corey Dickson, orthopedic surgeon. C. Using a long leg knee immobilizer. D. Allowed up to 25% weightbearing on the right leg with active and passive range of motion as o f 12/14/2017. 3. Hypertension. A. Controlled as of 01/09/2018. 4. Chronic obstructive pulmonary disease. 5. Diabetes mellitus type 2. A. Diet controlled. Hemoglobin A1c 5.6 as of 11/26/2017. 6. Generalized osteoarthritis. 7. Hypercholesterolemia. 8. Diastolic dysfunction. A. No evidence of acute congestive heart failure as of 01/02/2018. 9. Spondylosis of the lumbar spine. 10. Obesity. 11. Seborrheic dermatitis. 12. Pain in the right hand secondary to arthritis in the first GROUP HOME joint. A. Pain in the right hand over the 1st GROUP HOME joint has resolved as of 12/09/2017. 13. Urinary tract infection as of 12/08/2017. A. Resolved as of 12/19/2017. PLAN: Continue physical therapy.
[2018-01-09] MEDS: Polyethylene Glycol OPTH DROP 15 ML BOT EA EYE SCH (11:30)
[2018-01-09] MEDS: Mometasone Furoate 120 PUFF 220 MCG INH SCH (17:50)
[2018-01-09] MEDS: Latanoprost 0.005% Ophth Soln 2.5 ml Bottle EA EYE SCH (20:26)
[2018-01-09] MEDS: Atorvastatin Calcium 10 MG TAB PO SCH (20:27)
[2018-01-10] MEDS: Enoxaparin Sodium 40 MG/0.4 ML SYRINGE SC SCH (09:02)
[2018-01-10] MEDS: Calcium Carbonate 500 MG ChewTAB PO SCH (09:02)
[2018-01-10] MEDS: Fish Oil 1,000 MG CAP PO SCH ×3 (09:03→20:47)
[2018-01-10] MEDS: hydrALAZINE 25 MG TAB PO SCH ×3 (09:03→20:47)
[2018-01-10] MEDS: Lisinopril 10 MG TAB PO SCH ×2 (09:03→20:47)
[2018-01-10] MEDS: Vit A,C & E/Lutein/Minerals Tablet PO SCH ×2 (09:03→20:46)
[2018-01-10] MEDS: Metoprolol Tartrate 50 MG TAB PO SCH ×2 (09:04→20:46)
[2018-01-10] MEDS: Ketoconazole 2% Cream 15 gm Tube TOP SCH (09:04)
[2018-01-10] MEDS: Aspirin 81 mg Enteric Coated Tablet PO SCH (09:04)
[2018-01-10] MEDS: cloNIDine 0.1 MG TAB PO SCH ×3 (09:04→20:47)
[2018-01-10] MEDS: Furosemide 40 MG TAB PO SCH (09:04)
[2018-01-10] MEDS: Clotrimazole 1% Cream 15 GM TUBE TOP SCH (09:05)
[2018-01-10] MEDS: Polyethylene Glycol OPTH DROP 15 ML BOT EA EYE SCH (12:07)
[2018-01-10] MEDS: Mometasone Furoate 120 PUFF 220 MCG INH SCH (18:22)
[2018-01-10] MEDS: Latanoprost 0.005% Ophth Soln 2.5 ml Bottle EA EYE SCH (20:46)
[2018-01-10] MEDS: Atorvastatin Calcium 10 MG TAB PO SCH (20:47)
[2018-01-11] MEDS: Furosemide 40 MG TAB PO SCH (08:27)
[2018-01-11] MEDS: hydrALAZINE 25 MG TAB PO SCH ×3 (08:27→20:18)
[2018-01-11] MEDS: Enoxaparin Sodium 40 MG/0.4 ML SYRINGE SC SCH (08:27)
[2018-01-11] MEDS: Aspirin 81 mg Enteric Coated Tablet PO SCH (08:27)
[2018-01-11] MEDS: cloNIDine 0.1 MG TAB PO SCH ×3 (08:28→20:18)
[2018-01-11] MEDS: Fish Oil 1,000 MG CAP PO SCH ×3 (08:28→20:19)
[2018-01-11] MEDS: Metoprolol Tartrate 50 MG TAB PO SCH ×2 (08:28→20:19)
[2018-01-11] MEDS: Lisinopril 10 MG TAB PO SCH ×2 (08:28→20:19)
[2018-01-11] MEDS: Vit A,C & E/Lutein/Minerals Tablet PO SCH ×2 (08:28→20:18)
[2018-01-11] MEDS: Calcium Carbonate 500 MG ChewTAB PO SCH (08:28)
[2018-01-11] MEDS: Ketoconazole 2% Cream 15 gm Tube TOP SCH (08:29)
[2018-01-11] MEDS: Clotrimazole 1% Cream 15 GM TUBE TOP SCH (08:29)
[2018-01-11] MEDS: Polyethylene Glycol OPTH DROP 15 ML BOT EA EYE SCH (12:00)
[2018-01-11] MEDS: Mometasone Furoate 120 PUFF 220 MCG INH SCH (18:03)
[2018-01-11] MEDS: Latanoprost 0.005% Ophth Soln 2.5 ml Bottle EA EYE SCH (20:18)
[2018-01-11] MEDS: Atorvastatin Calcium 10 MG TAB PO SCH (20:19)
[2018-01-12] MEDS: Enoxaparin Sodium 40 MG/0.4 ML SYRINGE SC SCH (08:31)
[2018-01-12] MEDS: Fish Oil 1,000 MG CAP PO SCH ×3 (08:31→20:08)
[2018-01-12] MEDS: Lisinopril 10 MG TAB PO SCH ×2 (08:31→20:06)
[2018-01-12] MEDS: Vit A,C & E/Lutein/Minerals Tablet PO SCH ×2 (08:32→20:06)
[2018-01-12] MEDS: hydrALAZINE 25 MG TAB PO SCH ×3 (08:32→20:08)
[2018-01-12] MEDS: Metoprolol Tartrate 50 MG TAB PO SCH ×2 (08:32→20:07)
[2018-01-12] MEDS: Furosemide 40 MG TAB PO SCH (08:33)
[2018-01-12] MEDS: Calcium Carbonate 500 MG ChewTAB PO SCH (08:33)
[2018-01-12] MEDS: Aspirin 81 mg Enteric Coated Tablet PO SCH (08:33)
[2018-01-12] MEDS: cloNIDine 0.1 MG TAB PO SCH ×3 (08:33→20:07)
[2018-01-12] MEDS: Clotrimazole 1% Cream 15 GM TUBE TOP SCH (08:34)
[2018-01-12] MEDS: Ketoconazole 2% Cream 15 gm Tube TOP SCH (08:34)
--- NOTE | 2018-01-12 08:48 | PRG ---
DATE OF SERVICE: 01/12/2018 SUBJECTIVE: The patient said she is doing better. She is walking now, which is very light weightbea ring on the right leg, she is walking further, transferring easier. She is very pleased and happy wi th her progress. OBJECTIVE: The patient is walking in the hallway with just a light toe touching on the right with a walker and standby assistance. She looks very comfortable, in no distress. Her temperature 97.7, pu lse 62, respirations 20, O2 saturation 94%, blood pressure 120/60. Lungs are clear. Heart, regular rate. Extremities, no edema. ASSESSMENT: 1. Generalized weakness. A. Requires assistance with ADLs. B. Complicated by gait abnormality with nonweightbearing on the right leg. C. Secondary to a fall and supracondylar fracture of the right femur with open reduction interna l fixation on 11/03/2017. D. Improved with excellent improvement in upper body strength. Continued to transfer easier. N ow walking with toe touch on the right longer distance with the aid of a walker and standby a ssistance as of 01/12/2018. 2. Supracondylar fracture of the right femur. A. Secondary to a fall on a patch of ice. B. Required open reduction internal fixation with a Synthes variable angle locking plate and multiple screws on 11/03/[address] Corey Dickson, orthopedic surgeon. C. Using a long leg knee immobilizer. D. Allowed up to 25% weightbearing on the right leg with active and passive range of motion as o f 12/14/2017. 3. Hypertension. A. Controlled as of 01/09/2018. 4. Chronic obstructive pulmonary disease. 5. Diabetes mellitus type 2. A. Diet controlled. Hemoglobin A1c 5.6 as of 11/26/2017. 6. Generalized osteoarthritis. 7. Hypercholesterolemia. 8. Diastolic dysfunction. A. No evidence of acute congestive heart failure as of 01/02/2018. 9. Spondylosis of the lumbar spine. 10. Obesity. 11. Seborrheic dermatitis. 12. Pain in the right hand secondary to arthritis in the first ALF joint. A. Pain in the right hand over the 1st ALF joint has resolved as of 12/09/2017. 13. Urinary tract infection as of 12/08/2017. A. Resolved as of 12/19/2017. PLAN: The patient is making excellent progress. Continue physical therapy.
[2018-01-12] MEDS: Polyethylene Glycol OPTH DROP 15 ML BOT EA EYE SCH (11:44)
[2018-01-12] MEDS: Mometasone Furoate 120 PUFF 220 MCG INH SCH (18:14)
[2018-01-12] MEDS: Atorvastatin Calcium 10 MG TAB PO SCH (20:06)
[2018-01-12] MEDS: Latanoprost 0.005% Ophth Soln 2.5 ml Bottle EA EYE SCH (20:08)
[2018-01-13] MEDS: Enoxaparin Sodium 40 MG/0.4 ML SYRINGE SC SCH (08:18)
[2018-01-13] MEDS: Calcium Carbonate 500 MG ChewTAB PO SCH (08:19)
[2018-01-13] MEDS: Lisinopril 10 MG TAB PO SCH ×2 (08:19→21:11)
[2018-01-13] MEDS: cloNIDine 0.1 MG TAB PO SCH ×3 (08:19→21:10)
[2018-01-13] MEDS: Vit A,C & E/Lutein/Minerals Tablet PO SCH ×2 (08:19→21:09)
[2018-01-13] MEDS: Metoprolol Tartrate 50 MG TAB PO SCH ×2 (08:20→21:11)
[2018-01-13] MEDS: hydrALAZINE 25 MG TAB PO SCH ×3 (08:20→21:09)
[2018-01-13] MEDS: Fish Oil 1,000 MG CAP PO SCH ×3 (08:20→21:09)
[2018-01-13] MEDS: Aspirin 81 mg Enteric Coated Tablet PO SCH (08:20)
[2018-01-13] MEDS: Furosemide 40 MG TAB PO SCH (08:20)
[2018-01-13] MEDS: Clotrimazole 1% Cream 15 GM TUBE TOP SCH (08:21)
[2018-01-13] MEDS: Ketoconazole 2% Cream 15 gm Tube TOP SCH (08:21)
--- NOTE | 2018-01-13 10:16 | PRG ---
DATE OF SERVICE: 01/13/2018 SUBJECTIVE: The patient said she has already been out and had her physical therapy this morning. Heriberto fuentes is able to walk a little further each day with the toe touching on the right. OBJECTIVE: The patient is sitting up in a chair, is alert, looks very comfortable and in no distress . Her temperature is 97.1, pulse 67, respirations 20, O2 sat 93% on room air, blood pressure 158/62. Lungs are clear. Heart, regular rate. Extremities, no edema. ASSESSMENT: 1. Generalized weakness. A. Requires assistance with ADLs. B. Complicated by gait abnormality with nonweightbearing on the right leg. C. Secondary to a fall and supracondylar fracture of the right femur with open reduction interna l fixation on 11/03/2017. D. Improved with excellent improvement in upper body strength. Continued to transfer easier. N ow walking with toe touch on the right longer distance with the aid of a walker and standby a ssistance as of 01/13/2018. 2. Supracondylar fracture of the right femur. A. Secondary to a fall on a patch of ice. B. Required open reduction internal fixation with a Synthes variable angle locking plate and multiple screws on 11/03/[address] Croey Dickson, orthopedic surgeon. C. Using a long leg knee immobilizer. D. Allowed up to 25% weightbearing on the right leg with active and passive range of motion as o f 12/14/2017. 3. Hypertension. A. Controlled as of 01/09/2018. 4. Chronic obstructive pulmonary disease. 5. Diabetes mellitus type 2. A. Diet controlled. Hemoglobin A1c 5.6 as of 11/26/2017. 6. Generalized osteoarthritis. 7. Hypercholesterolemia. 8. Diastolic dysfunction. A. No evidence of acute congestive heart failure as of 01/13/2018. 9. Spondylosis of the lumbar spine. 10. Obesity. 11. Seborrheic dermatitis. 12. Pain in the right hand secondary to arthritis in the first SKILLED NURSING joint. A. Pain in the right hand over the 1st SKILLED NURSING joint has resolved as of 12/09/2017. 13. Urinary tract infection as of 12/08/2017. A. Resolved as of 12/19/2017. PLAN: Continue physical therapy. The patient is making excellent progress.
[2018-01-13] MEDS: Polyethylene Glycol OPTH DROP 15 ML BOT EA EYE SCH (11:56)
[2018-01-13] MEDS: Mometasone Furoate 120 PUFF 220 MCG INH SCH (18:07)
[2018-01-13] MEDS: Atorvastatin Calcium 10 MG TAB PO SCH (21:08)
[2018-01-13] MEDS: Latanoprost 0.005% Ophth Soln 2.5 ml Bottle EA EYE SCH (21:12)
[2018-01-14] MEDS: Enoxaparin Sodium 40 MG/0.4 ML SYRINGE SC SCH (09:35)
[2018-01-14] MEDS: Fish Oil 1,000 MG CAP PO SCH ×3 (09:36→20:26)
[2018-01-14] MEDS: Metoprolol Tartrate 50 MG TAB PO SCH ×2 (09:36→20:26)
[2018-01-14] MEDS: hydrALAZINE 25 MG TAB PO SCH ×3 (09:36→20:27)
[2018-01-14] MEDS: Vit A,C & E/Lutein/Minerals Tablet PO SCH ×2 (09:37→20:25)
[2018-01-14] MEDS: cloNIDine 0.1 MG TAB PO SCH ×3 (09:37→20:28)
[2018-01-14] MEDS: Lisinopril 10 MG TAB PO SCH ×2 (09:37→20:26)
[2018-01-14] MEDS: Calcium Carbonate 500 MG ChewTAB PO SCH (09:37)
[2018-01-14] MEDS: Aspirin 81 mg Enteric Coated Tablet PO SCH (09:37)
[2018-01-14] MEDS: Furosemide 40 MG TAB PO SCH (09:37)
[2018-01-14] MEDS: Ketoconazole 2% Cream 15 gm Tube TOP SCH (09:38)
[2018-01-14] MEDS: Clotrimazole 1% Cream 15 GM TUBE TOP SCH (09:38)
[2018-01-14] MEDS: Polyethylene Glycol OPTH DROP 15 ML BOT EA EYE SCH (12:03)
[2018-01-14] MEDS: Mometasone Furoate 120 PUFF 220 MCG INH SCH (18:04)
[2018-01-14] MEDS: Atorvastatin Calcium 10 MG TAB PO SCH (20:28)
[2018-01-14] MEDS: Latanoprost 0.005% Ophth Soln 2.5 ml Bottle EA EYE SCH (20:29)
[2018-01-15] MEDS: Calcium Carbonate 500 MG ChewTAB PO SCH (08:22)
[2018-01-15] MEDS: Lisinopril 10 MG TAB PO SCH ×2 (08:23→21:01)
[2018-01-15] MEDS: Aspirin 81 mg Enteric Coated Tablet PO SCH (08:23)
[2018-01-15] MEDS: Fish Oil 1,000 MG CAP PO SCH ×3 (08:23→21:01)
[2018-01-15] MEDS: Metoprolol Tartrate 50 MG TAB PO SCH ×2 (08:23→21:03)
[2018-01-15] MEDS: cloNIDine 0.1 MG TAB PO SCH ×3 (08:24→21:00)
[2018-01-15] MEDS: Enoxaparin Sodium 40 MG/0.4 ML SYRINGE SC SCH (08:24)
[2018-01-15] MEDS: Furosemide 40 MG TAB PO SCH (08:24)
[2018-01-15] MEDS: hydrALAZINE 25 MG TAB PO SCH ×3 (08:24→21:01)
[2018-01-15] MEDS: Clotrimazole 1% Cream 15 GM TUBE TOP SCH (08:24)
[2018-01-15] MEDS: Vit A,C & E/Lutein/Minerals Tablet PO SCH ×2 (08:24→21:03)
[2018-01-15] MEDS: Ketoconazole 2% Cream 15 gm Tube TOP SCH (08:25)
[2018-01-15] MEDS: Polyethylene Glycol OPTH DROP 15 ML BOT EA EYE SCH (12:00)
[2018-01-15] MEDS: Mometasone Furoate 120 PUFF 220 MCG INH SCH (18:15)
[2018-01-15] MEDS: Atorvastatin Calcium 10 MG TAB PO SCH (21:00)
[2018-01-15] MEDS: Latanoprost 0.005% Ophth Soln 2.5 ml Bottle EA EYE SCH (21:01)
[2018-01-16] MEDS: Enoxaparin Sodium 40 MG/0.4 ML SYRINGE SC SCH (08:02)
[2018-01-16] MEDS: Vit A,C & E/Lutein/Minerals Tablet PO SCH ×2 (08:02→21:06)
[2018-01-16] MEDS: hydrALAZINE 25 MG TAB PO SCH ×3 (08:03→21:17)
[2018-01-16] MEDS: Furosemide 40 MG TAB PO SCH (08:03)
[2018-01-16] MEDS: Fish Oil 1,000 MG CAP PO SCH ×3 (08:03→21:07)
[2018-01-16] MEDS: cloNIDine 0.1 MG TAB PO SCH ×3 (08:03→21:13)
[2018-01-16] MEDS: Calcium Carbonate 500 MG ChewTAB PO SCH (08:03)
[2018-01-16] MEDS: Aspirin 81 mg Enteric Coated Tablet PO SCH (08:03)
[2018-01-16] MEDS: Metoprolol Tartrate 50 MG TAB PO SCH ×2 (08:03→21:07)
[2018-01-16] MEDS: Lisinopril 10 MG TAB PO SCH ×2 (08:04→21:12)
--- NOTE | 2018-01-16 10:10 | PRG ---
DATE OF SERVICE: 01/16/2018 SUBJECTIVE: The patient said she is doing better. Her strength is improving. She is walking better with just partial weightbearing on that right leg. She each morning spends time on the NuStep which gives her a good workout of her legs and arms. OBJECTIVE: The patient is presently sitting on the NuStep working her arms and legs. She is talkati ve, appears very comfortable and in no distress. Temp 97.3, pulse 70, respirations 22, O2 sat 94% on room air, blood pressure 140/64. Lungs are clear. Heart, regular rate. Extremities, no edema. ASSESSMENT: 1. Generalized weakness. A. Requires assistance with ADLs. B. Complicated by gait abnormality with nonweightbearing on the right leg. C. Secondary to a fall and supracondylar fracture of the right femur with open reduction interna l fixation on 11/03/2017. D. Improved with excellent improvement in upper body strength. Continued to transfer easier. N ow walking with toe touch on the right longer distance with the aid of a walker and standby a ssistance as of 01/16/2018. 2. Supracondylar fracture of the right femur. A. Secondary to a fall on a patch of ice. B. Required open reduction internal fixation with a Synthes variable angle locking plate and multiple screws on 11/03/[address] Corey Dickson, orthopedic surgeon. C. Using a long leg knee immobilizer. D. Allowed up to 25% weightbearing on the right leg with active and passive range of motion as o f 12/14/2017. 3. Hypertension. A. Controlled as of 01/16/2018. 4. Chronic obstructive pulmonary disease. 5. Diabetes mellitus type 2. A. Diet controlled. Hemoglobin A1c 5.6 as of 11/26/2017. 6. Generalized osteoarthritis. 7. Hypercholesterolemia. 8. Diastolic dysfunction. A. No evidence of acute congestive heart failure as of 01/13/2018. 9. Spondylosis of the lumbar spine. 10. Obesity. 11. Seborrheic dermatitis. 12. Pain in the right hand secondary to arthritis in the first CHCF joint. A. Pain in the right hand over the 1st CHCF joint has resolved as of 12/09/2017. 13. Urinary tract infection as of 12/08/2017. A. Resolved as of 12/19/2017. PLAN: The patient continues to make progress. Will continue present care. Continue physical therap y.
[2018-01-16] MEDS: Polyethylene Glycol OPTH DROP 15 ML BOT EA EYE SCH (11:57)
[2018-01-16] MEDS: Ketoconazole 2% Cream 15 gm Tube TOP SCH (11:58)
[2018-01-16] MEDS: Clotrimazole 1% Cream 15 GM TUBE TOP SCH (11:58)
[2018-01-16] MEDS: Mometasone Furoate 120 PUFF 220 MCG INH SCH (17:33)
[2018-01-16] MEDS: Atorvastatin Calcium 10 MG TAB PO SCH (21:08)
[2018-01-16] MEDS: Latanoprost 0.005% Ophth Soln 2.5 ml Bottle EA EYE SCH (21:13)
[2018-01-17] MEDS: Clotrimazole 1% Cream 15 GM TUBE TOP SCH (08:48)
[2018-01-17] MEDS: Aspirin 81 mg Enteric Coated Tablet PO SCH (08:48)
[2018-01-17] MEDS: Calcium Carbonate 500 MG ChewTAB PO SCH (08:48)
[2018-01-17] MEDS: cloNIDine 0.1 MG TAB PO SCH ×3 (08:48→20:20)
[2018-01-17] MEDS: hydrALAZINE 25 MG TAB PO SCH ×3 (08:49→20:21)
[2018-01-17] MEDS: Fish Oil 1,000 MG CAP PO SCH ×3 (08:49→20:19)
[2018-01-17] MEDS: Furosemide 40 MG TAB PO SCH (08:49)
[2018-01-17] MEDS: Ketoconazole 2% Cream 15 gm Tube TOP SCH (08:49)
[2018-01-17] MEDS: Enoxaparin Sodium 40 MG/0.4 ML SYRINGE SC SCH (08:49)
[2018-01-17] MEDS: Vit A,C & E/Lutein/Minerals Tablet PO SCH ×2 (08:50→20:19)
[2018-01-17] MEDS: Metoprolol Tartrate 50 MG TAB PO SCH ×2 (08:50→20:21)
[2018-01-17] MEDS: Lisinopril 10 MG TAB PO SCH ×2 (08:50→20:18)
[2018-01-17] MEDS: Polyethylene Glycol OPTH DROP 15 ML BOT EA EYE SCH (12:03)
[2018-01-17] MEDS: Mometasone Furoate 120 PUFF 220 MCG INH SCH (18:25)
[2018-01-17] MEDS: Atorvastatin Calcium 10 MG TAB PO SCH (20:19)
[2018-01-17] MEDS: Latanoprost 0.005% Ophth Soln 2.5 ml Bottle EA EYE SCH (20:22)
[2018-01-18] MEDS: Enoxaparin Sodium 40 MG/0.4 ML SYRINGE SC SCH (08:51)
[2018-01-18] MEDS: Vit A,C & E/Lutein/Minerals Tablet PO SCH ×2 (08:52→20:41)
[2018-01-18] MEDS: Aspirin 81 mg Enteric Coated Tablet PO SCH (08:52)
[2018-01-18] MEDS: Fish Oil 1,000 MG CAP PO SCH ×3 (08:52→20:41)
[2018-01-18] MEDS: Calcium Carbonate 500 MG ChewTAB PO SCH (08:52)
[2018-01-18] MEDS: cloNIDine 0.1 MG TAB PO SCH ×3 (08:52→20:42)
[2018-01-18] MEDS: hydrALAZINE 25 MG TAB PO SCH ×3 (08:52→20:43)
[2018-01-18] MEDS: Lisinopril 10 MG TAB PO SCH ×2 (08:53→20:42)
[2018-01-18] MEDS: Furosemide 40 MG TAB PO SCH (08:53)
[2018-01-18] MEDS: Metoprolol Tartrate 50 MG TAB PO SCH ×2 (08:53→20:41)
[2018-01-18] MEDS: Ketoconazole 2% Cream 15 gm Tube TOP SCH (08:54)
[2018-01-18] MEDS: Clotrimazole 1% Cream 15 GM TUBE TOP SCH (08:54)
--- NOTE | 2018-01-18 10:15 | PRG ---
DATE OF SERVICE: 01/18/2018 SUBJECTIVE: The patient said she is doing well. She is making further progress with therapy. She i s walking further with just partial weightbearing on her right leg. The patient is due to see her or opedic surgeon, Dr. Dickson, on 01/25/2018. OBJECTIVE: The patient is sitting up in her chair, preparing to eat breakfast. She just completed h er first session of therapy this morning. She is alert, appears in no distress. Her temperature 98. 2, pulse 65, respirations 20, O2 saturation 94% on room air, blood pressure 131/63. Lungs were clear . Heart, regular rate. Extremities, no edema. ASSESSMENT: 1. Generalized weakness. A. Requires assistance with ADLs. B. Complicated by gait abnormality with nonweightbearing on the right leg. C. Secondary to a fall and supracondylar fracture of the right femur with open reduction interna l fixation on 11/03/2017. D. Continued improvement. Excellent upper body strength. Walking further with partial weightbe aring on the right leg as of 01/18/2018. 2. Supracondylar fracture of the right femur. A. Secondary to a fall on a patch of ice. B. Required open reduction internal fixation with a Synthes variable angle locking plate and multiple screws on 11/03/[address] Corey Dickson, orthopedic surgeon. C. Using a long leg knee immobilizer. D. Allowed up to 25% weightbearing on the right leg with active and passive range of motion as o f 12/14/2017. 3. Hypertension. A. Controlled as of 01/16/2018. 4. Chronic obstructive pulmonary disease. 5. Diabetes mellitus type 2. A. Diet controlled. Hemoglobin A1c 5.6 as of 11/26/2017. 6. Generalized osteoarthritis. 7. Hypercholesterolemia. 8. Diastolic dysfunction. A. No evidence of acute congestive heart failure as of 01/18/2018. 9. Spondylosis of the lumbar spine. 10. Obesity. 11. Seborrheic dermatitis. 12. Pain in the right hand secondary to arthritis in the first LONG-TERM joint. A. Pain in the right hand over the 1st LONG-TERM joint has resolved as of 12/09/2017. 13. Urinary tract infection as of 12/08/2017. A. Resolved as of 12/19/2017. PLAN: Continue present care. Continue physical therapy. The patient due to see her orthopedic surg felipe, Dr. Dickson, on 01/25/2018.
[2018-01-18] MEDS: Polyethylene Glycol OPTH DROP 15 ML BOT EA EYE SCH (12:44)
[2018-01-18] MEDS: Mometasone Furoate 120 PUFF 220 MCG INH SCH (17:52)
[2018-01-18] MEDS: Atorvastatin Calcium 10 MG TAB PO SCH (20:41)
[2018-01-18] MEDS: Latanoprost 0.005% Ophth Soln 2.5 ml Bottle EA EYE SCH (20:43)
[2018-01-19] MEDS: Calcium Carbonate 500 MG ChewTAB PO SCH (08:12)
[2018-01-19] MEDS: Aspirin 81 mg Enteric Coated Tablet PO SCH (08:13)
[2018-01-19] MEDS: hydrALAZINE 25 MG TAB PO SCH ×3 (08:13→20:30)
[2018-01-19] MEDS: Enoxaparin Sodium 40 MG/0.4 ML SYRINGE SC SCH (08:13)
[2018-01-19] MEDS: Furosemide 40 MG TAB PO SCH (08:13)
[2018-01-19] MEDS: Fish Oil 1,000 MG CAP PO SCH ×3 (08:13→20:29)
[2018-01-19] MEDS: cloNIDine 0.1 MG TAB PO SCH ×3 (08:13→20:30)
[2018-01-19] MEDS: Ketoconazole 2% Cream 15 gm Tube TOP SCH (08:14)
[2018-01-19] MEDS: Lisinopril 10 MG TAB PO SCH ×2 (08:14→20:30)
[2018-01-19] MEDS: Vit A,C & E/Lutein/Minerals Tablet PO SCH ×2 (08:14→20:29)
[2018-01-19] MEDS: Metoprolol Tartrate 50 MG TAB PO SCH ×2 (08:14→20:29)
[2018-01-19] MEDS: Clotrimazole 1% Cream 15 GM TUBE TOP SCH (08:15)
[2018-01-19] MEDS: Polyethylene Glycol OPTH DROP 15 ML BOT EA EYE SCH (11:59)
[2018-01-19] MEDS: Mometasone Furoate 120 PUFF 220 MCG INH SCH (17:59)
[2018-01-19] MEDS: Latanoprost 0.005% Ophth Soln 2.5 ml Bottle EA EYE SCH (20:29)
[2018-01-19] MEDS: Atorvastatin Calcium 10 MG TAB PO SCH (20:31)
[2018-01-20] MEDS: Ketoconazole 2% Cream 15 gm Tube TOP SCH (08:29)
[2018-01-20] MEDS: Fish Oil 1,000 MG CAP PO SCH ×3 (08:30→21:01)
[2018-01-20] MEDS: Lisinopril 10 MG TAB PO SCH ×2 (08:30→21:02)
[2018-01-20] MEDS: Enoxaparin Sodium 40 MG/0.4 ML SYRINGE SC SCH (08:30)
[2018-01-20] MEDS: Calcium Carbonate 500 MG ChewTAB PO SCH (08:30)
[2018-01-20] MEDS: Furosemide 40 MG TAB PO SCH (08:31)
[2018-01-20] MEDS: hydrALAZINE 25 MG TAB PO SCH ×3 (08:31→21:01)
[2018-01-20] MEDS: Metoprolol Tartrate 50 MG TAB PO SCH ×2 (08:31→21:02)
[2018-01-20] MEDS: Vit A,C & E/Lutein/Minerals Tablet PO SCH ×2 (08:31→21:02)
[2018-01-20] MEDS: cloNIDine 0.1 MG TAB PO SCH ×3 (08:31→21:01)
[2018-01-20] MEDS: Aspirin 81 mg Enteric Coated Tablet PO SCH (08:31)
[2018-01-20] MEDS: Clotrimazole 1% Cream 15 GM TUBE TOP SCH (08:32)
--- NOTE | 2018-01-20 11:57 | PRG ---
DATE OF SERVICE: 01/20/2018 SUBJECTIVE: The patient said she is doing better. She continues to make progress with her physical therapy. She is walking a little further with just partial weightbearing on that right leg. OBJECTIVE: GENERAL: The patient is sitting up in a chair, eating breakfast, already having completed her first session of therapy this morning. She looks very comfortable, in no distress. VITAL SIGNS: Her temperature is 98.3, pulse 80, respirations 20, blood pressure 165/77, earlier 120/ 74, O2 sat 94% on room air. LUNGS: Clear. HEART: Regular rate. EXTREMITIES: No edema. ASSESSMENT: 1. Generalized weakness. A. Requires assistance with ADLs. B. Complicated by gait abnormality with nonweightbearing on the right leg. C. Secondary to a fall and supracondylar fracture of the right femur with open reduction interna l fixation on 11/03/2017. D. Continued improvement. Excellent upper body strength. Walking further with partial weightbe aring on the right leg as of 01/20/2018. 2. Supracondylar fracture of the right femur. A. Secondary to a fall on a patch of ice. B. Required open reduction internal fixation with a Synthes variable angle locking plate and multiple screws on 11/03/[address] Corey Dickson, orthopedic surgeon. C. Using a long leg knee immobilizer. D. Allowed up to 25% weightbearing on the right leg with active and passive range of motion as o f 12/14/2017. 3. Hypertension. A. Controlled as of 01/20/2018. 4. Chronic obstructive pulmonary disease. 5. Diabetes mellitus type 2. A. Diet controlled. Hemoglobin A1c 5.6 as of 11/26/2017. 6. Generalized osteoarthritis. 7. Hypercholesterolemia. 8. Diastolic dysfunction. A. No evidence of acute congestive heart failure as of 01/20/2018. 9. Spondylosis of the lumbar spine. 10. Obesity. 11. Seborrheic dermatitis. 12. Pain in the right hand secondary to arthritis in the first PRISON joint. A. Pain in the right hand over the 1st PRISON joint has resolved as of 12/09/2017. 13. Urinary tract infection as of 12/08/2017. A. Resolved as of 12/19/2017. PLAN: Continue present care. Continue physical therapy. The patient is scheduled to see Dr. Dickson , her orthopedic surgeon on 01/25/2018. Hopefully, she will be allowed further weight bearing on hosea t right leg, which will allow her to continue to progress.
[2018-01-20] MEDS: Polyethylene Glycol OPTH DROP 15 ML BOT EA EYE SCH (12:04)
[2018-01-20] MEDS: Mometasone Furoate 120 PUFF 220 MCG INH SCH (18:02)
[2018-01-20] MEDS: Atorvastatin Calcium 10 MG TAB PO SCH (21:01)
[2018-01-20] MEDS: Latanoprost 0.005% Ophth Soln 2.5 ml Bottle EA EYE SCH (21:02)
[2018-01-21] MEDS: Calcium Carbonate 500 MG ChewTAB PO SCH (08:49)
[2018-01-21] MEDS: Aspirin 81 mg Enteric Coated Tablet PO SCH (08:50)
[2018-01-21] MEDS: cloNIDine 0.1 MG TAB PO SCH ×3 (08:50→20:17)
[2018-01-21] MEDS: Enoxaparin Sodium 40 MG/0.4 ML SYRINGE SC SCH (08:51)
[2018-01-21] MEDS: Furosemide 40 MG TAB PO SCH (08:51)
[2018-01-21] MEDS: Clotrimazole 1% Cream 15 GM TUBE TOP SCH (08:51)
[2018-01-21] MEDS: Fish Oil 1,000 MG CAP PO SCH ×3 (08:51→20:16)
[2018-01-21] MEDS: hydrALAZINE 25 MG TAB PO SCH ×3 (08:52→20:18)
[2018-01-21] MEDS: Ketoconazole 2% Cream 15 gm Tube TOP SCH (08:52)
[2018-01-21] MEDS: Lisinopril 10 MG TAB PO SCH ×2 (08:53→20:17)
[2018-01-21] MEDS: Metoprolol Tartrate 50 MG TAB PO SCH ×2 (08:53→20:17)
[2018-01-21] MEDS: Vit A,C & E/Lutein/Minerals Tablet PO SCH ×2 (08:54→20:16)
[2018-01-21] MEDS: Polyethylene Glycol OPTH DROP 15 ML BOT EA EYE SCH (11:43)
[2018-01-21] MEDS: Atorvastatin Calcium 10 MG TAB PO SCH (20:16)
[2018-01-21] MEDS: Mometasone Furoate 120 PUFF 220 MCG INH SCH ×2 (20:19→20:22)
[2018-01-21] MEDS: Latanoprost 0.005% Ophth Soln 2.5 ml Bottle EA EYE SCH (21:00)
[2018-01-22] MEDS: Enoxaparin Sodium 40 MG/0.4 ML SYRINGE SC SCH (08:50)
[2018-01-22] MEDS: Lisinopril 10 MG TAB PO SCH ×2 (08:50→20:29)
[2018-01-22] MEDS: Furosemide 40 MG TAB PO SCH (08:50)
[2018-01-22] MEDS: Clotrimazole 1% Cream 15 GM TUBE TOP SCH (08:50)
[2018-01-22] MEDS: Metoprolol Tartrate 50 MG TAB PO SCH ×2 (08:50→20:27)
[2018-01-22] MEDS: Vit A,C & E/Lutein/Minerals Tablet PO SCH ×2 (08:50→20:28)
[2018-01-22] MEDS: cloNIDine 0.1 MG TAB PO SCH ×3 (08:50→20:28)
[2018-01-22] MEDS: Ketoconazole 2% Cream 15 gm Tube TOP SCH (08:50)
[2018-01-22] MEDS: hydrALAZINE 25 MG TAB PO SCH ×3 (08:50→20:29)
[2018-01-22] MEDS: Aspirin 81 mg Enteric Coated Tablet PO SCH (08:50)
[2018-01-22] MEDS: Calcium Carbonate 500 MG ChewTAB PO SCH (08:50)
[2018-01-22] MEDS: Fish Oil 1,000 MG CAP PO SCH ×3 (08:50→20:29)
[2018-01-22] MEDS: Polyethylene Glycol OPTH DROP 15 ML BOT EA EYE SCH (12:00)
[2018-01-22] MEDS: Mometasone Furoate 120 PUFF 220 MCG INH SCH (18:20)
[2018-01-22] MEDS: Atorvastatin Calcium 10 MG TAB PO SCH (20:26)
[2018-01-22] MEDS: Latanoprost 0.005% Ophth Soln 2.5 ml Bottle EA EYE SCH (20:30)
[2018-01-23] MEDS: Calcium Carbonate 500 MG ChewTAB PO SCH (08:15)
[2018-01-23] MEDS: Fish Oil 1,000 MG CAP PO SCH ×3 (08:16→20:09)
[2018-01-23] MEDS: cloNIDine 0.1 MG TAB PO SCH ×3 (08:16→20:11)
[2018-01-23] MEDS: Aspirin 81 mg Enteric Coated Tablet PO SCH (08:16)
[2018-01-23] MEDS: Enoxaparin Sodium 40 MG/0.4 ML SYRINGE SC SCH (08:16)
[2018-01-23] MEDS: Clotrimazole 1% Cream 15 GM TUBE TOP SCH (08:16)
[2018-01-23] MEDS: hydrALAZINE 25 MG TAB PO SCH ×3 (08:17→20:11)
[2018-01-23] MEDS: Furosemide 40 MG TAB PO SCH (08:17)
[2018-01-23] MEDS: Ketoconazole 2% Cream 15 gm Tube TOP SCH (08:17)
[2018-01-23] MEDS: Lisinopril 10 MG TAB PO SCH ×2 (08:18→20:10)
[2018-01-23] MEDS: Metoprolol Tartrate 50 MG TAB PO SCH ×2 (08:18→20:12)
[2018-01-23] MEDS: Vit A,C & E/Lutein/Minerals Tablet PO SCH ×2 (08:18→20:09)
--- NOTE | 2018-01-23 10:24 | PRG ---
DATE OF SERVICE: 01/23/2018 SUBJECTIVE: The patient says she is doing better. She is walking further with just partial weightbe aring on the right leg. She is due to see orthopedic surgeon on Tuesday01/25/2018 and hopes that she can increase to weightbearing on her right leg. Her general strength is improved. She has been feeling well. OBJECTIVE: The patient is sitting up in her chair. She is alert, appears very comfortable, in no di stress. Her temperature is 97.2, pulse 67, respirations 22, O2 sat 96% on room air, blood pressure 1 70/70, earlier blood pressure 102/59. She has not had her morning meds. Lungs are clear. Heart, re gular rate. Extremities, no edema. ASSESSMENT: 1. Generalized weakness. A. Requires assistance with ADLs. B. Complicated by gait abnormality with nonweightbearing on the right leg. C. Secondary to a fall and supracondylar fracture of the right femur with open reduction interna l fixation on 11/03/2017. D. Continued improvement. Excellent upper body strength. Walking further with partial weightbe aring on the right leg as of 01/23/2018. 2. Supracondylar fracture of the right femur. A. Secondary to a fall on a patch of ice. B. Required open reduction internal fixation with a Synthes variable angle locking plate and multiple screws on 11/03/[address] Corey Dickson, orthopedic surgeon. C. Using a long leg knee immobilizer. D. Allowed up to 25% weightbearing on the right leg with active and passive range of motion as o f 12/14/2017. 3. Hypertension. A. Controlled as of 01/20/2018. 4. Chronic obstructive pulmonary disease. 5. Diabetes mellitus type 2. A. Diet controlled. Hemoglobin A1c 5.6 as of 11/26/2017. 6. Generalized osteoarthritis. 7. Hypercholesterolemia. 8. Diastolic dysfunction. A. No evidence of acute congestive heart failure as of 01/23/2018. 9. Spondylosis of the lumbar spine. 10. Obesity. 11. Seborrheic dermatitis. 12. Pain in the right hand secondary to arthritis in the first CHCF joint. A. Pain in the right hand over the 1st CHCF joint has resolved as of 12/09/2017. 13. Urinary tract infection as of 12/08/2017. A. Resolved as of 12/19/2017. PLAN: Continue physical therapy. The patient is scheduled to see orthopedic surgeon on 01/25/2018.
[2018-01-23] MEDS: Polyethylene Glycol OPTH DROP 15 ML BOT EA EYE SCH (11:41)
[2018-01-23] MEDS: Mometasone Furoate 120 PUFF 220 MCG INH SCH (17:57)
[2018-01-23] MEDS: Atorvastatin Calcium 10 MG TAB PO SCH (20:09)
[2018-01-23] MEDS: Latanoprost 0.005% Ophth Soln 2.5 ml Bottle EA EYE SCH (20:13)
[2018-01-24] MEDS: Lisinopril 10 MG TAB PO SCH ×2 (09:18→20:42)
[2018-01-24] MEDS: Vit A,C & E/Lutein/Minerals Tablet PO SCH ×2 (09:18→20:43)
[2018-01-24] MEDS: Aspirin 81 mg Enteric Coated Tablet PO SCH (09:18)
[2018-01-24] MEDS: cloNIDine 0.1 MG TAB PO SCH ×3 (09:18→20:43)
[2018-01-24] MEDS: Furosemide 40 MG TAB PO SCH (09:18)
[2018-01-24] MEDS: Metoprolol Tartrate 50 MG TAB PO SCH ×2 (09:18→20:42)
[2018-01-24] MEDS: Fish Oil 1,000 MG CAP PO SCH ×3 (09:19→20:42)
[2018-01-24] MEDS: hydrALAZINE 25 MG TAB PO SCH ×3 (09:19→20:43)
[2018-01-24] MEDS: Clotrimazole 1% Cream 15 GM TUBE TOP SCH (09:19)
[2018-01-24] MEDS: Calcium Carbonate 500 MG ChewTAB PO SCH (09:19)
[2018-01-24] MEDS: Ketoconazole 2% Cream 15 gm Tube TOP SCH (09:20)
[2018-01-24] MEDS: Polyethylene Glycol OPTH DROP 15 ML BOT EA EYE SCH (12:07)
[2018-01-24] MEDS: Mometasone Furoate 120 PUFF 220 MCG INH SCH (18:05)
[2018-01-24] MEDS: Atorvastatin Calcium 10 MG TAB PO SCH (20:42)
[2018-01-24] MEDS: Latanoprost 0.005% Ophth Soln 2.5 ml Bottle EA EYE SCH (20:46)
[2018-01-25] MEDS: Calcium Carbonate 500 MG ChewTAB PO SCH (08:21)
[2018-01-25] MEDS: Lisinopril 10 MG TAB PO SCH ×2 (08:21→20:15)
[2018-01-25] MEDS: Metoprolol Tartrate 50 MG TAB PO SCH ×2 (08:22→20:16)
[2018-01-25] MEDS: hydrALAZINE 25 MG TAB PO SCH ×3 (08:22→20:16)
[2018-01-25] MEDS: Aspirin 81 mg Enteric Coated Tablet PO SCH (08:22)
[2018-01-25] MEDS: cloNIDine 0.1 MG TAB PO SCH ×3 (08:22→20:16)
[2018-01-25] MEDS: Vit A,C & E/Lutein/Minerals Tablet PO SCH ×2 (08:23→20:15)
[2018-01-25] MEDS: Ketoconazole 2% Cream 15 gm Tube TOP SCH (08:23)
[2018-01-25] MEDS: Clotrimazole 1% Cream 15 GM TUBE TOP SCH (08:23)
[2018-01-25] MEDS: Furosemide 40 MG TAB PO SCH (08:23)
[2018-01-25] MEDS: Fish Oil 1,000 MG CAP PO SCH ×3 (08:23→20:15)
[2018-01-25] MEDS: Polyethylene Glycol OPTH DROP 15 ML BOT EA EYE SCH (12:43)
--- NOTE | 2018-01-25 13:18 | PRG ---
DATE OF SERVICE: 01/25/2018 SUBJECTIVE: The patient said she is doing well. She is due to go see her orthopedic surgeon this af ternoon. The patient continues to make progress with her physical therapy. OBJECTIVE: The patient is alert, appears very comfortable. She is sitting up. She has just fixed t oe walk around to physical therapy. She appears in no distress. Her vital signs show a temperature of 97.5, pulse 63, respirations 22, O2 sat 95% on room air, blood pressure 164/71. Lungs are clear. Heart, regular rate. Extremities, no edema. ASSESSMENT: 1. Generalized weakness. A. Requires assistance with ADLs. B. Complicated by gait abnormality with nonweightbearing on the right leg. C. Secondary to a fall and supracondylar fracture of the right femur with open reduction interna l fixation on 11/03/2017. D. Continued improvement. Excellent upper body strength. Walking further with partial weightbe aring on the right leg as of 01/25/2018. 2. Supracondylar fracture of the right femur. A. Secondary to a fall on a patch of ice. B. Required open reduction internal fixation with a Synthes variable angle locking plate and multiple screws on 11/03/[address] Corey Dickson, orthopedic surgeon. C. Using a long leg knee immobilizer. D. Allowed up to 25% weightbearing on the right leg with active and passive range of motion as o f 12/14/2017. 3. Hypertension. A. Controlled as of 01/25/2018. 4. Chronic obstructive pulmonary disease. 5. Diabetes mellitus type 2. A. Diet controlled. Hemoglobin A1c 5.6 as of 11/26/2017. 6. Generalized osteoarthritis. 7. Hypercholesterolemia. 8. Diastolic dysfunction. A. No evidence of acute congestive heart failure as of 01/25/2018. 9. Spondylosis of the lumbar spine. 10. Obesity. 11. Seborrheic dermatitis. 12. Pain in the right hand secondary to arthritis in the first CHCF joint. A. Pain in the right hand over the 1st CHCF joint has resolved as of 12/09/2017. 13. Urinary tract infection as of 12/08/2017. A. Resolved as of 12/19/2017. PLAN: Continue PT/OT. The patient will see Dr. Dickson, her orthopedic surgeon, today. Hopefully, h er amount of weightbearing on that right leg will be increased, which will allow her a much easier ti me with her ambulation.
[2018-01-25] MEDS: Mometasone Furoate 120 PUFF 220 MCG INH SCH (18:08)
[2018-01-25] MEDS: Atorvastatin Calcium 10 MG TAB PO SCH (20:15)
[2018-01-25] MEDS: Latanoprost 0.005% Ophth Soln 2.5 ml Bottle EA EYE SCH (20:16)
[2018-01-26] MEDS: Vit A,C & E/Lutein/Minerals Tablet PO SCH ×2 (08:07→20:33)
[2018-01-26] MEDS: Fish Oil 1,000 MG CAP PO SCH ×3 (08:07→20:34)
[2018-01-26] MEDS: Calcium Carbonate 500 MG ChewTAB PO SCH (08:07)
[2018-01-26] MEDS: cloNIDine 0.1 MG TAB PO SCH ×3 (08:08→20:34)
[2018-01-26] MEDS: Lisinopril 10 MG TAB PO SCH ×2 (08:08→20:34)
[2018-01-26] MEDS: Metoprolol Tartrate 50 MG TAB PO SCH ×2 (08:08→20:34)
[2018-01-26] MEDS: hydrALAZINE 25 MG TAB PO SCH ×3 (08:09→20:34)
[2018-01-26] MEDS: Clotrimazole 1% Cream 15 GM TUBE TOP SCH (08:10)
[2018-01-26] MEDS: Aspirin 81 mg Enteric Coated Tablet PO SCH (08:10)
[2018-01-26] MEDS: Ketoconazole 2% Cream 15 gm Tube TOP SCH (08:10)
[2018-01-26] MEDS: Furosemide 40 MG TAB PO SCH (08:10)
--- NOTE | 2018-01-26 09:28 | PRG ---
DATE OF SERVICE: 01/26/2018 SUBJECTIVE: The patient says she is feeling good today, has already been to therapy. She did see Dr Kate Dickson, Orthopedic surgeon yesterday. He re-x-rayed her right leg and felt like things were healin g fine. He has told her that she can fully weight bear on that right leg and he has released her fro m his care unless there are further issues. OBJECTIVE: The patient is alert, appears very comfortable, in no distress. Her temperature is 98.5, pulse 71, respirations 22, O2 sat 94% on room air, blood pressure 150/65. Lungs are clear. Heart, regular rate. Extremities: No edema. ASSESSMENT: 1. Generalized weakness. A. Requires assistance with ADLs. B. Complicated by gait abnormality with nonweightbearing on the right leg. C. Secondary to a fall and supracondylar fracture of the right femur with open reduction interna l fixation on 11/03/2017. D. Continued improvement, excellent upper body strength. Walking further and transferring shine r now at full weightbearing on the right leg as of 01/26/2018. 2. Supracondylar fracture of the right femur. A. Secondary to a fall on a patch of ice. B. Required open reduction internal fixation with a Synthes variable angle locking plate and multiple screws on 11/03/[address] Corey Dickson, orthopedic surgeon. C. Using a long leg knee immobilizer. D. Healing. Now at full weightbearing on the right leg as of 01/25/2018. 3. Hypertension. A. Controlled as of 01/26/2018. 4. Chronic obstructive pulmonary disease. 5. Diabetes mellitus type 2. A. Diet controlled. Hemoglobin A1c 5.6 as of 11/26/2017. 6. Generalized osteoarthritis. 7. Hypercholesterolemia. 8. Diastolic dysfunction. A. No evidence of acute congestive heart failure as of 01/26/2018. 9. Spondylosis of the lumbar spine. 10. Obesity. 11. Seborrheic dermatitis. 12. Pain in the right hand secondary to arthritis in the first JAIL joint. A. Pain in the right hand over the 1st JAIL joint has resolved as of 12/09/2017. 13. Urinary tract infection as of 12/08/2017. A. Resolved as of 12/19/2017. PLAN: The patient is doing excellent. Her strength is improving. Her transfers are improving and n ow with her being able to fully weight bear, this should make marked improvement in her stability wit h her gait and walking and transfer. Physical Therapy will continue to work with her. She will prob ably go on a home pass Tuesday01/28/2018 and see how she does and then, if there are issues here th en physical therapy can work on those issues. Anticipate probable discharge next week.
[2018-01-26] MEDS: Polyethylene Glycol OPTH DROP 15 ML BOT EA EYE SCH (12:00)
[2018-01-26] MEDS: Mometasone Furoate 120 PUFF 220 MCG INH SCH (17:43)
[2018-01-26] MEDS: Atorvastatin Calcium 10 MG TAB PO SCH (20:33)
[2018-01-26] MEDS: Latanoprost 0.005% Ophth Soln 2.5 ml Bottle EA EYE SCH (20:35)
[2018-01-27] MEDS: Lisinopril 10 MG TAB PO SCH ×2 (08:26→20:11)
[2018-01-27] MEDS: Calcium Carbonate 500 MG ChewTAB PO SCH (08:26)
[2018-01-27] MEDS: Aspirin 81 mg Enteric Coated Tablet PO SCH (08:27)
[2018-01-27] MEDS: Metoprolol Tartrate 50 MG TAB PO SCH ×2 (08:27→20:12)
[2018-01-27] MEDS: Fish Oil 1,000 MG CAP PO SCH ×3 (08:27→20:10)
[2018-01-27] MEDS: Furosemide 40 MG TAB PO SCH (08:27)
[2018-01-27] MEDS: hydrALAZINE 25 MG TAB PO SCH ×3 (08:27→20:12)
[2018-01-27] MEDS: Vit A,C & E/Lutein/Minerals Tablet PO SCH ×2 (08:27→20:12)
[2018-01-27] MEDS: cloNIDine 0.1 MG TAB PO SCH ×3 (08:27→20:10)
[2018-01-27] MEDS: Ketoconazole 2% Cream 15 gm Tube TOP SCH (08:28)
[2018-01-27] MEDS: Clotrimazole 1% Cream 15 GM TUBE TOP SCH (08:28)
[2018-01-27] MEDS: Polyethylene Glycol OPTH DROP 15 ML BOT EA EYE SCH (12:00)
--- NOTE | 2018-01-27 13:56 | PRG ---
DATE OF SERVICE: 01/27/2018 SUBJECTIVE: The patient said she is doing better. Her strength is improving. Her walk is improving . She plans on going home on a pass during the day on Tuesday01/29/2018 and see how she does. This will give opportunity for physical therapy to work on the areas where she has most troubles. OBJECTIVE: The patient is sitting up in a wheelchair. She is alert, looks very comfortable and in n o distress. Vital signs show a temperature 97.7, pulse 64, blood pressure 125/59, respirations 22, O 2 sat 96% on room air. Lungs clear. Heart, regular rate. Extremities, no edema. ASSESSMENT: 1. Generalized weakness. A. Requires assistance with ADLs. B. Complicated by gait abnormality with nonweightbearing on the right leg. C. Secondary to a fall and supracondylar fracture of the right femur with open reduction interna l fixation on 11/03/2017. D. Continued improvement, excellent upper body strength. Walking further and transferring shine r now at full weightbearing on the right leg as of 01/27/2018. 2. Supracondylar fracture of the right femur. A. Secondary to a fall on a patch of ice. B. Required open reduction internal fixation with a Synthes variable angle locking plate and multiple screws on 11/03/[address] Corey Dickson, orthopedic surgeon. C. Using a long leg knee immobilizer. D. Healing. Now at full weightbearing on the right leg as of 01/25/2018. 3. Hypertension. A. Controlled as of 01/27/2018. 4. Chronic obstructive pulmonary disease. 5. Diabetes mellitus type 2. A. Diet controlled. Hemoglobin A1c 5.6 as of 11/26/2017. 6. Generalized osteoarthritis. 7. Hypercholesterolemia. 8. Diastolic dysfunction. A. No evidence of acute congestive heart failure as of 01/27/2018. 9. Spondylosis of the lumbar spine. 10. Obesity. 11. Seborrheic dermatitis. 12. Pain in the right hand secondary to arthritis in the first CUSTODIAL joint. A. Pain in the right hand over the 1st CUSTODIAL joint has resolved as of 12/09/2017. 13. Urinary tract infection as of 12/08/2017. A. Resolved as of 12/19/2017. PLAN: Continue physical therapy. The patient will be given a pass during the day of 01/29/2018 and then see if there are any areas physical therapy needs to especially work on. Anticipate that she wi ll be able to be discharged home the coming week.
[2018-01-27] MEDS: Mometasone Furoate 120 PUFF 220 MCG INH SCH (18:03)
[2018-01-27] MEDS: Latanoprost 0.005% Ophth Soln 2.5 ml Bottle EA EYE SCH (20:10)
[2018-01-27] MEDS: Atorvastatin Calcium 10 MG TAB PO SCH (20:11)
[2018-01-28] MEDS: Vit A,C & E/Lutein/Minerals Tablet PO SCH ×2 (08:27→20:40)
[2018-01-28] MEDS: cloNIDine 0.1 MG TAB PO SCH ×3 (08:27→20:38)
[2018-01-28] MEDS: Aspirin 81 mg Enteric Coated Tablet PO SCH (08:27)
[2018-01-28] MEDS: hydrALAZINE 25 MG TAB PO SCH ×3 (08:27→20:38)
[2018-01-28] MEDS: Calcium Carbonate 500 MG ChewTAB PO SCH (08:27)
[2018-01-28] MEDS: Furosemide 40 MG TAB PO SCH (08:28)
[2018-01-28] MEDS: Metoprolol Tartrate 50 MG TAB PO SCH ×2 (08:28→20:39)
[2018-01-28] MEDS: Fish Oil 1,000 MG CAP PO SCH ×3 (08:28→20:38)
[2018-01-28] MEDS: Ketoconazole 2% Cream 15 gm Tube TOP SCH (08:28)
[2018-01-28] MEDS: Lisinopril 10 MG TAB PO SCH ×2 (08:28→20:39)
[2018-01-28] MEDS: Clotrimazole 1% Cream 15 GM TUBE TOP SCH (08:29)
[2018-01-28] MEDS: Polyethylene Glycol OPTH DROP 15 ML BOT EA EYE SCH (11:59)
[2018-01-28] MEDS: Mometasone Furoate 120 PUFF 220 MCG INH SCH (18:04)
[2018-01-28] MEDS: Atorvastatin Calcium 10 MG TAB PO SCH (20:38)
[2018-01-28] MEDS: Latanoprost 0.005% Ophth Soln 2.5 ml Bottle EA EYE SCH (20:39)
[2018-01-29] MEDS: Lisinopril 10 MG TAB PO SCH ×2 (08:22→20:21)
[2018-01-29] MEDS: Furosemide 40 MG TAB PO SCH (08:22)
[2018-01-29] MEDS: Vit A,C & E/Lutein/Minerals Tablet PO SCH ×2 (08:22→20:20)
[2018-01-29] MEDS: Calcium Carbonate 500 MG ChewTAB PO SCH (08:22)
[2018-01-29] MEDS: cloNIDine 0.1 MG TAB PO SCH ×3 (08:26→20:22)
[2018-01-29] MEDS: hydrALAZINE 25 MG TAB PO SCH ×3 (08:26→20:22)
[2018-01-29] MEDS: Fish Oil 1,000 MG CAP PO SCH ×3 (08:26→20:19)
[2018-01-29] MEDS: Metoprolol Tartrate 50 MG TAB PO SCH ×2 (08:26→20:20)
[2018-01-29] MEDS: Aspirin 81 mg Enteric Coated Tablet PO SCH (08:26)
[2018-01-29] MEDS: Clotrimazole 1% Cream 15 GM TUBE TOP SCH (08:27)
[2018-01-29] MEDS: Ketoconazole 2% Cream 15 gm Tube TOP SCH (08:27)
[2018-01-29] MEDS: Polyethylene Glycol OPTH DROP 15 ML BOT EA EYE SCH (11:53)
[2018-01-29] MEDS: Mometasone Furoate 120 PUFF 220 MCG INH SCH (18:07)
[2018-01-29] MEDS: Atorvastatin Calcium 10 MG TAB PO SCH (20:20)
[2018-01-29] MEDS: Latanoprost 0.005% Ophth Soln 2.5 ml Bottle EA EYE SCH (20:23)
[2018-01-30] MEDS: Calcium Carbonate 500 MG ChewTAB PO SCH (08:41)
[2018-01-30] MEDS: Aspirin 81 mg Enteric Coated Tablet PO SCH (08:42)
[2018-01-30] MEDS: cloNIDine 0.1 MG TAB PO SCH ×3 (08:42→20:16)
[2018-01-30] MEDS: Fish Oil 1,000 MG CAP PO SCH ×3 (08:43→20:14)
[2018-01-30] MEDS: hydrALAZINE 25 MG TAB PO SCH ×3 (08:43→20:17)
[2018-01-30] MEDS: Furosemide 40 MG TAB PO SCH (08:43)
[2018-01-30] MEDS: Lisinopril 10 MG TAB PO SCH ×2 (08:44→20:15)
[2018-01-30] MEDS: Clotrimazole 1% Cream 15 GM TUBE TOP SCH (08:44)
[2018-01-30] MEDS: Ketoconazole 2% Cream 15 gm Tube TOP SCH (08:44)
[2018-01-30] MEDS: Vit A,C & E/Lutein/Minerals Tablet PO SCH ×2 (08:45→20:13)
[2018-01-30] MEDS: Metoprolol Tartrate 50 MG TAB PO SCH ×2 (08:45→20:16)
--- NOTE | 2018-01-30 10:59 | PRG ---
DATE OF SERVICE: 01/30/2018 SUBJECTIVE: The patient said she is doing fine. She is walking with use of a walker fine. She is t ransferring fine. Yesterday she went home on a pass and she did very well on the pass and she did no t find any areas that they could not manage. She even showered at home by herself and did fine. Pre sently she is sitting on a NuStep working out the arms and legs. She appears in no distress. Her vi katelynn signs show temperature 97.5, pulse 72, respirations 22, O2 sat 92% on room air, blood pressure is 128/71. Her lungs were clear. Heart, regular rate. Extremities, no edema. ASSESSMENT: 1. Generalized weakness. A. Requires assistance with ADLs. B. Complicated by gait abnormality with nonweightbearing on the right leg. C. Secondary to a fall and supracondylar fracture of the right femur with open reduction interna l fixation on 11/03/2017. D. Continued improvement with excellent upper body strength. Continues to walk further with her walker and no assistance. Transferring with no assistance as of 01/30/2018. 2. Supracondylar fracture of the right femur. A. Secondary to a fall on a patch of ice. B. Required open reduction internal fixation with a Synthes variable angle locking plate and multiple screws on 11/03/[address] Corey Dickson, orthopedic surgeon. C. Using a long leg knee immobilizer. D. Healing. Now at full weightbearing on the right leg as of 01/25/2018. 3. Hypertension. A. Controlled as of 01/30/2018. 4. Chronic obstructive pulmonary disease. 5. Diabetes mellitus type 2. A. Diet controlled. Hemoglobin A1c 5.6 as of 11/26/2017. 6. Generalized osteoarthritis. 7. Hypercholesterolemia. 8. Diastolic dysfunction. A. No evidence of acute congestive heart failure as of 01/27/2018. 9. Spondylosis of the lumbar spine. 10. Obesity. 11. Seborrheic dermatitis. 12. Pain in the right hand secondary to arthritis in the first CHCF joint. A. Pain in the right hand over the 1st CHCF joint has resolved as of 12/09/2017. 13. Urinary tract infection as of 12/08/2017. A. Resolved as of 12/19/2017. PLAN: Continue present care. Continue physical therapy. Planning on discharge tomorrow. This will give the patient's family preparatory time.
[2018-01-30] MEDS: Polyethylene Glycol OPTH DROP 15 ML BOT EA EYE SCH (11:50)
[2018-01-30] MEDS: Mometasone Furoate 120 PUFF 220 MCG INH SCH (18:00)
[2018-01-30 19:20] VITALS: BMI 36.7
[2018-01-30] MEDS: Atorvastatin Calcium 10 MG TAB PO SCH (20:14)
[2018-01-30] MEDS: Latanoprost 0.005% Ophth Soln 2.5 ml Bottle EA EYE SCH (20:18)
[2018-01-31 06:50] VITALS: BP 122/71; TEMP 97.2
[2018-01-31] MEDS: Fish Oil 1,000 MG CAP PO SCH (08:08)
[2018-01-31] MEDS: Calcium Carbonate 500 MG ChewTAB PO SCH (08:08)
[2018-01-31] MEDS: Aspirin 81 mg Enteric Coated Tablet PO SCH (08:08)
[2018-01-31] MEDS: Clotrimazole 1% Cream 15 GM TUBE TOP SCH (08:08)
[2018-01-31] MEDS: cloNIDine 0.1 MG TAB PO SCH (08:08)
[2018-01-31] MEDS: Furosemide 40 MG TAB PO SCH (08:09)
[2018-01-31] MEDS: hydrALAZINE 25 MG TAB PO SCH (08:09)
[2018-01-31] MEDS: Ketoconazole 2% Cream 15 gm Tube TOP SCH (08:10)
[2018-01-31] MEDS: Metoprolol Tartrate 50 MG TAB PO SCH (08:11)
[2018-01-31] MEDS: Vit A,C & E/Lutein/Minerals Tablet PO SCH (08:11)
[2018-01-31] MEDS: Lisinopril 10 MG TAB PO SCH (08:11)
--- NOTE | 2018-01-31 10:38 | DIS ---
Admitted to [facility]. DATE OF ADMISSION: 11/25/2017 DATE OF DISCHARGE: 01/31/2018 FINAL DIAGNOSES: 1. Generalized weakness. A. Requires assistance with ADLs. B. Complicated by gait abnormality with nonweightbearing on the right leg. C. Secondary to a fall and supracondylar fracture of the right femur with open reduction interna l fixation on 11/03/2017. D. Excellent improvement. Excellent upper body strength. Ambulating independently with a walke r. Transferring independently as of 01/31/2018. 2. Supracondylar fracture of the right femur. A. Secondary to a fall on a patch of ice. B. Required open reduction internal fixation with a Synthes variable angle locking plate and multiple screws on 11/03/[address] Corey Dickson, orthopedic surgeon. C. Using a long leg knee immobilizer. D. Healing. Now at full weightbearing on the right leg as of 01/25/2018. 3. Hypertension. A. Controlled as of 01/30/2018. 4. Chronic obstructive pulmonary disease. 5. Diabetes mellitus type 2. A. Diet controlled. Hemoglobin A1c 5.6 as of 11/26/2017. 6. Generalized osteoarthritis. 7. Hypercholesterolemia. 8. Diastolic dysfunction. A. No evidence of acute congestive heart failure as of 01/31/2018. 9. Spondylosis of the lumbar spine. 10. Obesity. 11. Seborrheic dermatitis. 12. Pain in the right hand secondary to arthritis in the first FPC joint. A. Pain in the right hand over the 1st FPC joint has resolved as of 12/09/2017. 13. Urinary tract infection as of 12/08/2017. A. Resolved as of 12/19/2017. HISTORY OF PRESENT ILLNESS: The patient is an 82-year-old white female who has a history of hyperten rohit, diabetes type 2 that is diet controlled, COPD, generalized osteoarthritis, hypercholesterolemia , spondylosis of the LS spine and a diastolic dysfunction. The patient has had a total previous righ t total knee replacement in 12/2016. She lives at home with her and is independent of all he r ADLs. The patient had a fall on 11/03/2017. She stepped on a patch of ice and slipped and landed on her right knee, sustaining a supracondylar fracture of the right femur. The patient was hospitali zed at [facility] and her orthopedic surgeon, Dr. Corey Dickson, operated on the patient on 11/03/2017. She underwent a 14-hole Synthes variable angle locking plate with placement of multiple screws. The patient tolerated the procedure well and was placed at nonweightbearing and in a knee i mmobilizer. Patient was transferred to [facility] on 11/25/2017 for continued care, physical t herapy and strengthening exercises. After this fall and fracture and surgical repair, she was at non weightbearing on the right leg and requiring assistance with all her ADLs. HOSPITAL COURSE: The patient had no complications from her recent surgery on her right femur. Physi velasquez therapy worked with her and during her hospitalization, she made excellent progress. She develop ed excellent upper body strength. Initially, she was at no weightbearing on the right leg and wearin g the knee immobilizer. She was seen in followup visit by Dr. Dickson after a month and was placed on partial weight bearing up to 25% and then as she progressed and continued to heal. She was seen on 01/25/2018 re-x-ray and showed excellent alignment and healing. The patient was allowed full weightb earing as she tolerated and the knee immobilizer was discontinued. She was dismissed from the care o f Dr. Dickson on 01/25/2018. She has had no more pain in that right leg and occasionally she will gwendolyn e a Tylenol for an ache or pain. She made excellent progress with physical therapy and by the time o f her discharge, she was ambulating with the use of a walker up to 200 feet 2 times a [facility] She was transferring independently with just supervision. She is full weightbearing on the right leg. Her incision had totally healed. There was no swelling in the leg. The patient had taken a pass home and did very well with just she and her . The patient will continue physica l therapy as an outpatient at [facility]. She did not feel like she needed any assistance from home health. During her hospitalization early in November, she had a urinary tract infection that was treated and resolved. The patient was on DVT prophylaxis with Lovenox during her hospitalization, he r diabetes was under control with diet alone. Her hemoglobin A1c on 11/26/2017 was 5.6. The patient has a history of a diastolic dysfunction, but during her hospitalization had no evidence of any acut e congestive heart failure. Her blood pressure was under good control and during her hospital stay, her hydralazine was able to be reduced. During her hospitalization, her hydralazine was able be redu cintia from 100 mg 3 times a day to 25 mg t.i.d. with still excellent control of her blood pressure. Th e patient was using only Tylenol on an occasion for pain. On 01/31/2018, the patient doing well. Sh e was now able to manage her ADLs independently. The patient was discharged in good condition. The patient will be seen in followup in my office in 2 weeks. DIET: Regular diet. ACTIVITIES: Ambulate the use of a walker. Outpatient physical therapy for continued gait training a nd strengthening exercise will be arranged. MEDICATIONS: Acetaminophen 325 mg 2 every 4 hours as needed for pain, aspirin 81 mg daily, atorvasta tin 20 mg at bedtime, calcium carbonate 1000 mg daily, clonidine 0.2 mg t.i.d., fish oil 1000 mg t.i. d., furosemide 40 mg daily, hydralazine 25 mg t.i.d., ketaconazole applied to the face behind the ear s daily, Xalatan 0.005% 1 drop in the eyes at bedtime, lisinopril 20 mg b.i.d., metoprolol 100 mg t.i .d., pantoprazole 40 mg daily, Systane 1 drop in the eyes daily, Asmanex two puffs daily, Ocuvite wit h Lutein b.i.d. FOLLOW UP: The patient will be seen in my office in 2 weeks. At that time, she will need a CBC, bas ic metabolic panel and liver panel. CODE STATUS: FULL CODE.
[2018-01-31] MEDS: Polyethylene Glycol OPTH DROP 15 ML BOT EA EYE SCH (11:29)
== END 2018-01-31 11:40 | disposition home or self-care (01) | DRG 948 ==
LOC: MADMS 12:17
PROVIDERS: ADMIT Family Medicine; ATTEND Family Medicine
DX: R53.1 Weakness (principal); N39.0 Urinary tract infection, site not specified; S72.451D Displaced supracondylar fracture without intracondylar extension of lower end of right femur, subsequent encounter for closed fracture with routine healing; I10 Essential (primary) hypertension; E11.9 Type 2 diabetes mellitus without complications; J44.9 Chronic obstructive pulmonary disease, unspecified; M15.9 Polyosteoarthritis, unspecified; E78.5 Hyperlipidemia, unspecified; W00.0XXD Fall on same level due to ice and snow, subsequent encounter; E66.9 Obesity, unspecified; R26.9 Unspecified abnormalities of gait and mobility; L21.9 Seborrheic dermatitis, unspecified; M47.896 Other spondylosis, lumbar region; F17.210 Nicotine dependence, cigarettes, uncomplicated
CPT/HCPCS: 36415; 80048; 80053; 81001; 83036; 85025; 94664; G8978-GP-CJ; G8978-GP-CK; G8979-GP-CI; G8987-GO-CJ; G8987-GO-CM; G8988-GO-CI; J1650

== ENCOUNTER 2018-02-08 10:35 | Outpatient (CLI) | payer MEDICARE ==
[2018-02-08 11:21] LABS: Hemoglobin 10.8 g/dL (12.0-16.0); Mean Corpuscular HGB CONC 30.4 g/dL (32.0-36.0); Mean Corpuscular Hemoglobin 22.2 pg (27.0-31.0); Mean Platelet Volume 8.1 fL (7.4-10.4); Platelet Count 325 thou/uL (130-400); RBC Distribution Width 15.8 % (11.5-14.5); Red Blood Cell (RBC) Count 4.88 mill/uL (4.20-5.40); White Blood Cell (WBC) Count 12.7 thou/uL (4.8-10.8)
[2018-02-08 11:39] LABS: ALT (SGPT) 13 U/L (8-55); AST (SGOT) 17 U/L (5-34); Albumin 3.4 g/dL (3.4-4.8); Alkaline Phosphatase 122 U/L (40-150); Anion Gap 12 mmol/L (10-20); BUN (Urea Nitrogen) 15 mg/dL (9.8-20.1); Bilirubin, Total 0.4 mg/dL (0.2-1.2); Calc. Creatinine Clearance 0 mL/min (70-130); Calcium 10.3 mg/dL (7.8-10.44); Carbon Dioxide 28 mmol/L (23-31); Cardiac Risk 2.6 (Less than 4.5); Chloride 106 mmol/L (98-107); Cholesterol 127 mg/dl (< 200 Desired); Estimated GFR-MDRD 90; Globulin 2.8 g/dL (2.4-3.5); Glucose 117 mg/dL (83-110); HDL Cholesterol 49 mg/dL (>60 Neg Risk); LDL Cholesterol, Calculated 55 mg/dL; Potassium 4.2 mmol/L (3.5-5.1); Protein, Total 6.2 g/dL (6.0-8.3); Sodium 142 mmol/L (136-145); Triglycerides 114 mg/dL (Less than 150)
== END 2018-02-08 10:36 | disposition home or self-care (01) ==
LOC: MADLABBHPM 10:35
PROVIDERS: ATTEND Family Medicine
DX: E11.9 Type 2 diabetes mellitus without complications (principal); E78.00 Pure hypercholesterolemia, unspecified; I10 Essential (primary) hypertension
CPT/HCPCS: 36415; 80053; 80061; 85027

== ENCOUNTER 2018-09-29 16:24 | Inpatient (IN) | payer MEDICARE ==
[2018-09-29] MEDS ORDERED: Acetaminophen 325 MG TAB PO PRN (20:19)
[2018-09-29] MEDS ORDERED: Ventolin HFA Inhaler 60 PUFF INHALER INH PRN (20:19)
[2018-09-29] MEDS ORDERED: [UNRECOGNIZED DRUG - OTHER] PO PRN (20:22)
[2018-09-29] MEDS ORDERED: carBAMazepine 200 MG TAB PO SCH (21:00)
[2018-09-29] MEDS: Metoprolol Tartrate 50 MG TAB PO SCH (21:54)
[2018-09-29] MEDS: hydrALAZINE 25 MG TAB PO SCH (21:54)
[2018-09-29] MEDS: Lisinopril 10 MG TAB PO SCH (21:57)
[2018-09-29] MEDS: Atorvastatin Calcium 10 MG TAB PO SCH (21:58)
[2018-09-29] MEDS: cloNIDine 0.1 MG TAB PO SCH (21:58)
[2018-09-29] MEDS: Cefepime 2 GM in Sodium Chloride 0.9% 100 ML IVPB SCH (22:01)
[2018-09-30] MEDS: Fluticasone Propionate HFA 220 MCG AER INH SCH ×3 (00:04→20:26)
[2018-09-30 05:33] LABS: ALT (SGPT) 17 U/L (8-55); AST (SGOT) 18 U/L (5-34); Albumin 3.2 g/dL (3.4-4.8); Alkaline Phosphatase 99 U/L (40-150); Anion Gap 16 mmol/L (10-20); BUN (Urea Nitrogen) 18 mg/dL (9.8-20.1); Bilirubin, Total Less than 0.2 mg/dL (0.2-1.2); Calc. Creatinine Clearance 108 mL/min (70-130); Calcium 9.9 mg/dL (7.8-10.44); Carbon Dioxide 35 mmol/L (23-31); Estimated GFR-MDRD Greater than 90; Globulin 2.6 g/dL (2.4-3.5); Glucose 115 mg/dL (83-110); Protein, Total 5.8 g/dL (6.0-8.3)
[2018-09-30 05:37] LABS: #Basophils 0.1 thou/uL (0.0-0.2); #Eosinphils 0.4 thou/uL (0.0-0.7); #Lymphocytes 2.6 thou/uL (1.20-3.40); #Monocytes 1.1 thou/uL (0.11-0.59); #Neutrophils 11.7 thou/uL (1.40-6.50); %Basophils 0.6 % (0.0-1.0); %Eosinophils 2.6 % (0.0-10.0); %Lymphocytes 16.4 % (21.0-51.0); %Monocytes 6.8 % (0.0-10.0); %Neutrophils 73.6 % (42.0-75.0); Anisocytosis SLIGHT = 6-15 cells (100X) (0-5/hpf); Giant Platelets SLIGHT; Hemoglobin 10.7 g/dL (12.0-16.0); Hypochromia MODERATE=16-30 cells (100X) (0-5/hpf); Large Platelets SLIGHT; MDiff Complete? YES; Macrocytosis SLIGHT = 6-15 cells (100X) (0-5/hpf); Mean Corpuscular HGB CONC 30.2 g/dL (32.0-36.0); Mean Corpuscular Hemoglobin 24.2 pg (27.0-31.0); Mean Corpuscular Volume 80.4 fL (78.0-98.0); Mean Platelet Volume 9.3 fL (7.4-10.4); Microcytosis SLIGHT = 6-15 cells (100X) (0-5/hpf); Platelet Count 223 thou/uL (130-400); Platelet Morphology Comment Appears Adequate; Poikilocytosis SLIGHT = 6-15 cells (100X) (0-5/hpf); RBC Distribution Width 15.5 % (11.5-14.5); RBC Morphology Abnormal; White Blood Cell (WBC) Count 15.9 thou/uL (4.8-10.8)
[2018-09-30 05:46] LABS: Chloride 97 mmol/L (98-107); Potassium 4.3 mmol/L (3.5-5.1); Sodium 143 mmol/L (136-145)
[2018-09-30] MEDS: Enoxaparin Sodium 40 MG/0.4 ML SYRINGE SC SCH (08:27)
[2018-09-30] MEDS: Fish Oil 1,000 MG CAP PO SCH (08:28)
[2018-09-30] MEDS: Furosemide 40 MG TAB PO SCH (08:29)
[2018-09-30] MEDS: Saccharomyces boulardii 250 MG CAP PO SCH (08:29)
[2018-09-30] MEDS: carBAMazepine 200 MG TAB PO SCH ×2 (08:29→17:12)
[2018-09-30] MEDS: cloNIDine 0.1 MG TAB PO SCH ×3 (08:29→20:25)
[2018-09-30] MEDS: hydrALAZINE 25 MG TAB PO SCH ×3 (08:29→20:26)
[2018-09-30] MEDS: Metoprolol Tartrate 50 MG TAB PO SCH ×2 (08:29→20:27)
[2018-09-30] MEDS: Vit A,C & E/Lutein/Minerals Tablet PO SCH (08:29)
[2018-09-30] MEDS: Cefepime 2 GM in Sodium Chloride 0.9% 100 ML IVPB SCH ×2 (08:30→20:24)
[2018-09-30] MEDS: Lisinopril 10 MG TAB PO SCH ×2 (08:33→20:26)
--- NOTE | 2018-09-30 14:32 | HP ---
Admitted to [facility] on the evening of 09/29/2018. CHIEF COMPLAINT: Weakness. HISTORY OF PRESENT ILLNESS: The patient is an 83-year-old white female, who has a history of hypertension, diabetes type 2 that is diet controlled, COPD, generalized osteoarthritis, hypercholesterolemia, spondylosis of L-spine, and diastolic dysfunction. The patient was hospitalized at [facility] from 2017 until 09/29/2018 for shortness of breath secondary to COPD acute exacerbation with acute hypoxic respiratory failure requiring supplemental O2 and also acute on chronic diastolic congestive heart failure. During her hospitalization, she had a chest x-ray that showed cardiomegaly and pulmonary vascular prominence with interstitial prominence secondary to congestive heart failure. She underwent an echocardiogram, which showed an ejection fraction of 60% to 65%, grade 1 of 3 diastolic dysfunction, and an elevated right ventricular systolic pressure of 55. She was treated with diuretics, IV antibiotics, nebulization treatments, and IV steroids with marked improvement. She was left very weak and was having to ambulate with assistance and a walker. She was also still requiring supplemental O2. She improved, but was extremely weak and consequently was transferred to [facility] in the late afternoon or early evening of 09/29/2018 for continued physical therapy in an effort to try to improve her functional capabilities back to her baseline. Prior to her hospitalization, she was living independently with her and was independent of all her ADLs. She was still requiring supplemental O2 at the time of her transfer and was receiving IV antibiotics with cefepime, which was scheduled to continue for another 3 days. The patient was seen early on the morning of 09/30/2018. She said she had a good night, is happy to be back over here, enjoyed her breakfast. She is feeling better. She still has a productive cough of some yellowish phlegm. Her breathing now is better. She said she is not having any shortness of breath when she is lying down, gets a little short of breath with exertion. She is just very, very weak. She is not having any trouble with breathing when she is lying down. PAST MEDICAL HISTORY: Hospitalized at [facility] from 09/24/2018 until 09/29/2018 for COPD acute exacerbation with hypoxic respiratory failure and acute on chronic diastolic congestive heart failure. Hospitalized at [facility] from 11/25/2017 until 11/28/2017 following a fall and supracondylar fracture of the right femur that required open reduction and internal fixation with a [employer] variable angle locking plate with multiple screws. Hospitalized at [facility] for the supracondylar fracture and surgical repair from 11/03/2017 until 11/09/2017. 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 PRESENT MEDICATIONS: 1. Cefepime 2 g IV every 12 hours, to complete on 10/02/2018. 2. Acetaminophen 325 mg two every 4 hours as needed. 3. Ventolin inhaler two puffs every 6 hours p.r.n. 4. DuoNeb by nebulizer every 6 hours. 5. Aspirin 81 mg daily. 6. Atorvastatin 20 mg daily. 7. Beano one t.i.d. as needed. 8. Tegretol 200 mg b.i.d. 9. Clonidine 0.2 mg t.i.d. 10. Fish oil 1000 mg daily. 11. Fluticasone inhaler 220 mcg one inhalation b.i.d. 12. Furosemide 40 mg daily. 13. Hydralazine 50 mg t.i.d. 14. Lisinopril 20 mg b.i.d. 15. Metoprolol tartrate 100 mg b.i.d. 16. Ocuvite with lutein two tablets daily. 17. Pantoprazole 40 mg daily. 18. Florastor 250 mg daily. 19. Xalatan 0.005% one drop in the eyes in the evening. 20. Systane one drop in the eyes daily. ALLERGIES: NORVASC CAUSES THE LEGS TO SWELL. VICODIN, NAUSEA. FENTANYL AND MELOXICAM, NAUSEA. REVIEW OF SYSTEMS: GENERAL: The patient said she thinks she is doing better. She has not had any fever. She does not think her weight has changed any. HEAD AND NECK: No complaints. PULMONARY: The patient says she is still having a little cough that is productive of a thin yellowish sputum. She gets a little out of breath with exertion and right now, requiring supplemental O2 that she did not need at home. She denies any orthopnea. CARDIOVASCULAR: No chest pain. GI: No nausea, vomiting, or change in bowel habits. : No complaints. MUSCULOSKELETAL: No complaints other than some joint aches and pains, which are chronic and stable. NEUROPSYCHIATRIC: No complaints. ADLs prior to this hospitalization, the patient was independent of her ADLs. SOCIAL HISTORY: The patient lives with significant other. She is ordinarily independent of her ADLs. CODE STATUS: Full code. HABITS: Alcohol, none. Tobacco, none. PHYSICAL EXAMINATION: GENERAL: Shows a very pleasant, 83-year-old, white female, who is sitting in her bedside chair. She is alert, appears comfortable, and in no distress. She does have a little productive cough and spitting up some thin yellowish sputum. VITAL SIGNS: Show a temperature of 97, pulse 72, blood pressure 128/62, respirations are 20, O2 saturation 93% on 2 L by nasal cannula. Her weight is 205. Her height is 62 inches. HEENT: Head, normocephalic. Eyes; pupils are equal, round, and reactive. Sclerae are nonicteric. Ears; there is a little cerumen obscuring the view of the TMs bilaterally. Nose, normal. Mouth and throat, normal. NECK: Carotids are equal and strong. No bruits. Thyroid not enlarged. LUNGS: The patient has good breath sounds. There are no rales. There are no rhonchi. The patient has a very slight wheeze on forced expiration at the very end expiration at the posterior bases. HEART: Regular rate. No murmurs. ABDOMEN: Soft. No organomegaly. No areas of tenderness. EXTREMITIES: No edema. NEUROLOGIC: The patient is alert and oriented x3, and aware of her situation. The patient has no focal weakness. IMPRESSION: 1. Generalized weakness and deconditioning. a. Secondary to recent acute illness. b. Requiring assistance with her ADLs. 2. Hospitalized at [facility] from 09/24/2018 until 09/29/2018 for chronic obstructive pulmonary disease with acute exacerbation with hypoxic respiratory failure, requiring supplemental O2 and acute on chronic diastolic congestive heart failure. 3. Acute on chronic diastolic congestive heart failure. a. Echocardiogram on 09/25/2018 showed ejection fraction of 60% to 65%, 1 of 3 diastolic dysfunction, and an elevated right ventricular systolic pressure of 55. b. Resolving with no evidence of acute congestive heart failure as of 2018. 4. Chronic obstructive pulmonary disease with acute exacerbation. a. Complicated by hypoxic respiratory failure, requiring supplemental O2. b. Improving as of 09/30/2018. 5. Chronic obstructive pulmonary disease. 6. Hypertension. 7. Diabetes, type 2. a. Diet-controlled. b. Hemoglobin A1c from August 2018 was 6.3. 8. Generalized osteoarthritis. 9. Trigeminal neuralgia of the right side of the face: a. Controlled with carbamazepine. 10. Gastroesophageal reflux disease. a. Controlled. PLAN: The patient has been admitted to [facility] for purpose of physical therapy and OT in an effort to try to restore her back to her independent functional status prior to this hospitalization. Also, she will need to complete her IV antibiotics for the COPD acute exacerbation. See orders. Job ID: [id number] MTDD
[2018-09-30 14:47] LABS: Hemoglobin A1c 6.1 % (4.0-6.0)
[2018-09-30] MEDS: Atorvastatin Calcium 10 MG TAB PO SCH (20:22)
[2018-10-01 05:35] VITALS: BMI 37.7
[2018-10-01] MEDS: hydrALAZINE 25 MG TAB PO SCH ×3 (08:28→20:40)
[2018-10-01] MEDS: Cefepime 2 GM in Sodium Chloride 0.9% 100 ML IVPB SCH ×2 (08:28→20:37)
[2018-10-01] MEDS: Enoxaparin Sodium 40 MG/0.4 ML SYRINGE SC SCH (08:28)
[2018-10-01] MEDS: Metoprolol Tartrate 50 MG TAB PO SCH ×2 (08:30→20:39)
[2018-10-01] MEDS: Lisinopril 10 MG TAB PO SCH ×2 (08:30→20:39)
[2018-10-01] MEDS: Saccharomyces boulardii 250 MG CAP PO SCH (08:30)
[2018-10-01] MEDS: Fluticasone Propionate HFA 220 MCG AER INH SCH ×2 (08:31→20:50)
[2018-10-01] MEDS: cloNIDine 0.1 MG TAB PO SCH ×3 (08:31→20:39)
[2018-10-01] MEDS: Fish Oil 1,000 MG CAP PO SCH (08:31)
[2018-10-01] MEDS: carBAMazepine 200 MG TAB PO SCH ×2 (08:31→17:09)
[2018-10-01] MEDS: Furosemide 40 MG TAB PO SCH (08:31)
[2018-10-01] MEDS: Vit A,C & E/Lutein/Minerals Tablet PO SCH (08:31)
[2018-10-01] MEDS: Atorvastatin Calcium 10 MG TAB PO SCH (20:37)
[2018-10-02] MEDS ORDERED: Sodium Chloride 0.9% 10 ML ONE (05:03)
--- NOTE | 2018-10-02 07:22 | PRG ---
DATE OF SERVICE: 10/01/2018 SUBJECTIVE: The patient says she is feeling better today. She is not having any trouble breathing. Her cough is better and she is spitting up less phlegm. OBJECTIVE: GENERAL: The patient is sitting up in a chair. She is alert, appears very comfortable, in no distress. She has spit up a little bit of sputum that has a little light yellowish discoloration, but this is less than yesterday. VITAL SIGNS: Her temperature is 99.3, pulse 76, respirations 18, O2 saturation 94% on 2 L, blood pressure 149/64. LUNGS: Good breath sounds. The patient has very slight, deep pitched, minimal wheeze on forced expiration. Otherwise, chest clear. HEART: Regular rate. EXTREMITIES: No edema. ASSESSMENT: 1. Generalized weakness and deconditioning. a. Secondary to recent acute illness. b. Requiring assistance with her ADLs. c. Improving as of 10/01. 2. Hospitalized at [facility] from 09/24/2018 until 09/29/2018 for chronic obstructive pulmonary disease with acute exacerbation with hypoxic respiratory failure, requiring supplemental O2 and acute on chronic diastolic congestive heart failure. 3. Acute on chronic diastolic congestive heart failure. a. Echocardiogram on 09/25/2018 showed ejection fraction of 60% to 65%, 1 of 3 diastolic dysfunction, and an elevated right ventricular systolic pressure of 55. b. Resolving with no evidence of acute congestive heart failure as of 2018. 4. Chronic obstructive pulmonary disease with acute exacerbation. a. Complicated by hypoxic respiratory failure, requiring supplemental O2. b. Improving as of 10/01/2018. 5. Chronic obstructive pulmonary disease. 6. Hypertension. 7. Diabetes, type 2. a. Diet-controlled. b. Hemoglobin A1c from August 2018 was 6.3. 8. Generalized osteoarthritis. 9. Trigeminal neuralgia of the right side of the face: a. Controlled with carbamazepine. 10. Gastroesophageal reflux disease. a. Controlled. PLAN: Continue present care. Job ID: [id number] [facility]
[2018-10-02] MEDS: Mometasone Furoate 120 PUFF 220 MCG INH SCH ×2 (07:49→18:00)
[2018-10-02] MEDS: carBAMazepine 200 MG TAB PO SCH ×2 (07:51→17:13)
[2018-10-02] MEDS: Enoxaparin Sodium 40 MG/0.4 ML SYRINGE SC SCH (08:27)
[2018-10-02] MEDS: Lisinopril 10 MG TAB PO SCH ×2 (08:28→20:48)
[2018-10-02] MEDS: Vit A,C & E/Lutein/Minerals Tablet PO SCH (08:28)
[2018-10-02] MEDS: Furosemide 40 MG TAB PO SCH (08:29)
[2018-10-02] MEDS: Fish Oil 1,000 MG CAP PO SCH (08:29)
[2018-10-02] MEDS: Saccharomyces boulardii 250 MG CAP PO SCH (08:29)
[2018-10-02] MEDS: Metoprolol Tartrate 50 MG TAB PO SCH ×2 (08:29→20:48)
[2018-10-02] MEDS: cloNIDine 0.1 MG TAB PO SCH ×3 (08:29→20:47)
[2018-10-02] MEDS: Cefepime 2 GM in Sodium Chloride 0.9% 100 ML IVPB SCH (08:30)
[2018-10-02] MEDS: hydrALAZINE 25 MG TAB PO SCH ×3 (08:40→20:47)
--- NOTE | 2018-10-02 08:46 | PRG ---
DATE OF SERVICE: 10/02/2018 SUBJECTIVE: The patient says she is feeling better today. Her cough is improved. She still has little slight yellow discoloration to the sputum. She feels a little stronger. OBJECTIVE: GENERAL: The patient is able to sit up on the side of her bed on her own. She is alert, appears very comfortable, in no distress. VITAL SIGNS: Temperature 98.3, pulse 72, respirations 18, O2 saturation on 2 L 90%, blood pressure 119/53. LUNGS: Clear. HEART: Regular rate. EXTREMITIES: No edema. ASSESSMENT: 1. Generalized weakness and deconditioning. a. Secondary to recent acute illness. b. Requiring assistance with her ADLs. c. Improving as of 10/02/2018. 2. Hospitalized at [facility] from 09/24/2018 until 09/29/2018 for chronic obstructive pulmonary disease with acute exacerbation with hypoxic respiratory failure, requiring supplemental O2 and acute on chronic diastolic congestive heart failure. 3. Acute on chronic diastolic congestive heart failure. a. Echocardiogram on 09/25/2018 showed ejection fraction of 60% to 65%, 1 of 3 diastolic dysfunction, and an elevated right ventricular systolic pressure of 55. b. Resolving with no evidence of acute congestive heart failure as of 2018. 4. Chronic obstructive pulmonary disease with acute exacerbation. a. Complicated by hypoxic respiratory failure, requiring supplemental O2. b. Improving. We will complete her cefepime this morning of 10/02/2018. 5. Chronic obstructive pulmonary disease. 6. Hypertension. 7. Diabetes, type 2. a. Diet-controlled. b. Hemoglobin A1c from August 2018 was 6.3. 8. Generalized osteoarthritis. 9. Trigeminal neuralgia of the right side of the face: a. Controlled with carbamazepine. 10. Gastroesophageal reflux disease. a. Controlled. PLAN: Continue PT, OT. The patient due to receive her last dose of cefepime this morning. Job ID: [id number] MTDD
[2018-10-02] MEDS: Atorvastatin Calcium 10 MG TAB PO SCH (20:47)
[2018-10-03] MEDS: Mometasone Furoate 120 PUFF 220 MCG INH SCH ×2 (06:04→18:59)
[2018-10-03] MEDS: Enoxaparin Sodium 40 MG/0.4 ML SYRINGE SC SCH (08:47)
[2018-10-03] MEDS: Lisinopril 10 MG TAB PO SCH ×2 (08:48→20:49)
[2018-10-03] MEDS: Saccharomyces boulardii 250 MG CAP PO SCH (08:48)
[2018-10-03] MEDS: Vit A,C & E/Lutein/Minerals Tablet PO SCH (08:48)
[2018-10-03] MEDS: hydrALAZINE 25 MG TAB PO SCH ×3 (08:49→20:48)
[2018-10-03] MEDS: Furosemide 40 MG TAB PO SCH (08:49)
[2018-10-03] MEDS: Fish Oil 1,000 MG CAP PO SCH (08:49)
[2018-10-03] MEDS: cloNIDine 0.1 MG TAB PO SCH ×3 (08:49→20:48)
[2018-10-03] MEDS: carBAMazepine 200 MG TAB PO SCH ×2 (08:50→16:08)
[2018-10-03] MEDS: Metoprolol Tartrate 50 MG TAB PO SCH ×2 (08:50→20:49)
--- NOTE | 2018-10-03 09:54 | PRG ---
DATE OF SERVICE: 10/03/2018 SUBJECTIVE: The patient said she is doing better. Her breathing is doing good. She said she slept well last night. She has already been up this morning and has walked 3 times. Yesterday morning, she was scheduled for her last dose of cefepime, but her IV had infiltrated. It was opted not to restart the IV and to discontinue the cefepime without the last dose. OBJECTIVE: GENERAL: The patient just walking back into her room using her walker, wearing her O2 with PT as a standby assist. She looks very comfortable, in no distress. VITAL SIGNS: Show a temp 97.8, pulse 76, respirations 18, O2 saturation 95% on 2 L, blood pressure 114/57. LUNGS: Clear. HEART: Regular rate. EXTREMITIES: No edema. ASSESSMENT: 1. Generalized weakness and deconditioning. a. Secondary to recent acute illness. b. Requiring assistance with her ADLs. c. Improved. Walking much further with a rolling walker as of 10/03/2018. 2. Hospitalized at [facility] from 09/24/2018 until 09/29/2018 for chronic obstructive pulmonary disease with acute exacerbation with hypoxic respiratory failure, requiring supplemental O2 and acute on chronic diastolic congestive heart failure. 3. Acute on chronic diastolic congestive heart failure. a. Echocardiogram on 09/25/2018 showed ejection fraction of 60% to 65%, 1 of 3 diastolic dysfunction, and an elevated right ventricular systolic pressure of 55. b. Resolved with no evidence of acute congestive heart failure as of 10/03/2018. 4. Chronic obstructive pulmonary disease with acute exacerbation. a. Complicated by hypoxic respiratory failure, requiring supplemental O2. b. Resolving. Has completed her IV cefepime on the evening of 10/01/2018, doing well this morning of 10/03/2018. 5. Chronic obstructive pulmonary disease. 6. Hypertension. 7. Diabetes, type 2. a. Diet-controlled. b. Hemoglobin A1c from August 2018 was 6.3. c. Hemoglobin A1c of 6.1 on 09/30/2018. 8. Generalized osteoarthritis. 9. Trigeminal neuralgia of the right side of the face: a. Controlled with carbamazepine. 10. Gastroesophageal reflux disease. a. Controlled. PLAN: Continue PT and OT. Continue supplemental O2. Job ID: [id number] [facility]
[2018-10-03] MEDS: Atorvastatin Calcium 10 MG TAB PO SCH (20:48)
[2018-10-04] MEDS: Mometasone Furoate 120 PUFF 220 MCG INH SCH ×2 (07:34→20:00)
[2018-10-04] MEDS: Enoxaparin Sodium 40 MG/0.4 ML SYRINGE SC SCH (08:02)
[2018-10-04] MEDS: hydrALAZINE 25 MG TAB PO SCH ×3 (08:02→20:01)
[2018-10-04] MEDS: cloNIDine 0.1 MG TAB PO SCH ×3 (08:03→20:01)
[2018-10-04] MEDS: Saccharomyces boulardii 250 MG CAP PO SCH (08:03)
[2018-10-04] MEDS: Lisinopril 10 MG TAB PO SCH ×2 (08:15→20:02)
[2018-10-04] MEDS: Fish Oil 1,000 MG CAP PO SCH (08:15)
[2018-10-04] MEDS: Metoprolol Tartrate 50 MG TAB PO SCH ×2 (08:16→20:02)
[2018-10-04] MEDS: Vit A,C & E/Lutein/Minerals Tablet PO SCH (08:16)
[2018-10-04] MEDS: carBAMazepine 200 MG TAB PO SCH ×2 (08:17→17:39)
[2018-10-04] MEDS: Furosemide 40 MG TAB PO SCH (08:17)
--- NOTE | 2018-10-04 12:44 | PRG ---
DATE OF SERVICE: 10/04/2018 SUBJECTIVE: The patient says she is doing better. She is walking further with physical therapy, has been independent with her transfers. She has tried going some without her oxygen, but oxygen saturations will drop to 79% on room air. She states her cough is less. She is spitting up just a very slight amount of yellow substance. Her breathing she thinks is doing good. OBJECTIVE: GENERAL: The patient is sitting up in a chair, is alert, talkative, appears comfortable, and in no distress. VITAL SIGNS: Her temp is 97.4, pulse 73, blood pressure 165/73, respirations 20 , O2 saturation on 2 L 93% to 95%. Her weight is 210. LUNGS: Clear. HEART: Regular rate. EXTREMITIES: No edema. ASSESSMENT: 1. Generalized weakness and deconditioning. a. Secondary to recent acute illness. b. Requiring assistance with her ADLs. c. Improved. Walking much further with a rolling walker as of 10/04/2018. 2. Hospitalized at [facility] from 09/24/2018 until 09/29/2018 for chronic obstructive pulmonary disease with acute exacerbation with hypoxic respiratory failure, requiring supplemental O2 and acute on chronic diastolic congestive heart failure. 3. Acute on chronic diastolic congestive heart failure. a. Echocardiogram on 09/25/2018 showed ejection fraction of 60% to 65%, 1 of 3 diastolic dysfunction, and an elevated right ventricular systolic pressure of 55. b. Resolved with no evidence of acute congestive heart failure as of 10/04/2018. 4. Chronic obstructive pulmonary disease with acute exacerbation. a. Complicated by hypoxic respiratory failure, requiring supplemental O2. b. Resolving. Has completed her IV cefepime on the evening of 10/01/2018, doing well this morning of 10/04/2018. 5. Chronic obstructive pulmonary disease. a. Complicated by hypoxemia requiring supplemental O2 as of 10/04/2018. 6. Hypertension. 7. Diabetes, type 2. a. Diet-controlled. b. Hemoglobin A1c from August 2018 was 6.3. c. Hemoglobin A1c of 6.1 on 09/30/2018. 8. Generalized osteoarthritis. 9. Trigeminal neuralgia of the right side of the face: a. Controlled with carbamazepine. 10. Gastroesophageal reflux disease. a. Controlled. PLAN: Continue physical therapy. We will arrange for in-home oxygen that she will require all the time. Anticipate probable discharge on Tuesday, 10/06. Job ID: [id number] MTDD
[2018-10-04] MEDS: Atorvastatin Calcium 10 MG TAB PO SCH (20:01)
[2018-10-05] MEDS: Mometasone Furoate 120 PUFF 220 MCG INH SCH ×2 (06:02→20:30)
[2018-10-05] MEDS: Enoxaparin Sodium 40 MG/0.4 ML SYRINGE SC SCH (08:10)
[2018-10-05] MEDS: hydrALAZINE 25 MG TAB PO SCH ×3 (08:10→20:41)
[2018-10-05] MEDS: carBAMazepine 200 MG TAB PO SCH ×2 (08:11→17:36)
[2018-10-05] MEDS: Furosemide 40 MG TAB PO SCH (08:11)
[2018-10-05] MEDS: Metoprolol Tartrate 50 MG TAB PO SCH ×2 (08:11→20:37)
[2018-10-05] MEDS: Saccharomyces boulardii 250 MG CAP PO SCH (08:11)
[2018-10-05] MEDS: Lisinopril 10 MG TAB PO SCH ×2 (08:11→20:37)
[2018-10-05] MEDS: cloNIDine 0.1 MG TAB PO SCH ×3 (08:11→20:36)
[2018-10-05] MEDS: Vit A,C & E/Lutein/Minerals Tablet PO SCH (08:11)
[2018-10-05] MEDS: Fish Oil 1,000 MG CAP PO SCH (08:11)
--- NOTE | 2018-10-05 14:31 | PRG ---
DATE OF SERVICE: 10/05/2018 SUBJECTIVE: The patient thinks she is doing good. She is doing well with her physical therapy. This morning, she has walked around. Physical Therapy is now working on a New Screens. She is wearing her oxygen. OBJECTIVE: GENERAL: The patient is alert, appears very comfortable, and in no distress. VITAL SIGNS: Her temp is 97.4, pulse 67, respirations 20, O2 saturation 93% to 96% on 2 L, blood pressure 142/65. LUNGS: Clear. HEART: Regular rate. EXTREMITIES: No edema. ASSESSMENT: 1. Generalized weakness and deconditioning. a. Secondary to recent acute illness. b. Requiring assistance with her ADLs. c. Improved. Walking much further with a rolling walker as of 10/05/2018. 2. Hospitalized at [facility] from 09/24/2018 until 09/29/2018 for chronic obstructive pulmonary disease with acute exacerbation with hypoxic respiratory failure, requiring supplemental O2 and acute on chronic diastolic congestive heart failure. 3. Acute on chronic diastolic congestive heart failure. a. Echocardiogram on 09/25/2018 showed ejection fraction of 60% to 65%, 1 of 3 diastolic dysfunction, and an elevated right ventricular systolic pressure of 55. b. Resolved with no evidence of acute congestive heart failure as of 10/05/2018. 4. Chronic obstructive pulmonary disease with acute exacerbation. a. Complicated by hypoxic respiratory failure, requiring supplemental O2. b. Resolving. Has completed her IV cefepime on the evening of 10/01/2018, doing well this morning of 10/05/2018. 5. Chronic obstructive pulmonary disease. a. Complicated by hypoxemia requiring supplemental O2 as of 10/05/2018. 6. Hypertension. 7. Diabetes, type 2. a. Diet-controlled. b. Hemoglobin A1c from August 2018 was 6.3. c. Hemoglobin A1c of 6.1 on 09/30/2018. 8. Generalized osteoarthritis. 9. Trigeminal neuralgia of the right side of the face: a. Controlled with carbamazepine. 10. Gastroesophageal reflux disease. a. Controlled. PLAN: Continue PT and OT. Arrangements are being made for the patient to have O2 at home and plan on discharge in the morning. Job ID: [id number] MTDD
[2018-10-05] MEDS: Atorvastatin Calcium 10 MG TAB PO SCH (20:33)
[2018-10-06] MEDS: Mometasone Furoate 120 PUFF 220 MCG INH SCH (08:40)
[2018-10-06 08:44] VITALS: BP 144/63; TEMP 99
[2018-10-06] MEDS: Lisinopril 10 MG TAB PO SCH (08:45)
[2018-10-06] MEDS: Enoxaparin Sodium 40 MG/0.4 ML SYRINGE SC SCH (08:45)
[2018-10-06] MEDS: Fish Oil 1,000 MG CAP PO SCH (08:46)
[2018-10-06] MEDS: hydrALAZINE 25 MG TAB PO SCH (08:46)
[2018-10-06] MEDS: cloNIDine 0.1 MG TAB PO SCH (08:46)
[2018-10-06] MEDS: Furosemide 40 MG TAB PO SCH (08:46)
[2018-10-06] MEDS: carBAMazepine 200 MG TAB PO SCH (08:46)
[2018-10-06] MEDS: Metoprolol Tartrate 50 MG TAB PO SCH (08:47)
[2018-10-06] MEDS: Saccharomyces boulardii 250 MG CAP PO SCH (08:47)
[2018-10-06] MEDS: Vit A,C & E/Lutein/Minerals Tablet PO SCH (08:47)
--- NOTE | 2018-10-06 14:22 | DIS ---
DATE OF ADMISSION: 09/30/2018 DATE OF DISCHARGE: 10/06/2018 Admitted to [facility] on 09/30/2018 and discharged on 10/06/2018. FINAL DIAGNOSES: 1. Generalized weakness and deconditioning. a. Secondary to recent acute illness. b. Requires assistance with all her ADLs. c. Marked improvement, walking with a rolling walker independently, transferring independently, and managing ADLs as of 10/06/2018. 2. Hospitalized at [facility] from 09/24/2018 until 09/29/2018 for chronic obstructive pulmonary disease with acute exacerbation with hypoxic respiratory failure, requiring supplemental O2, and acute on chronic diastolic congestive heart failure. 3. Acute on chronic diastolic congestive heart failure. a. Echocardiogram on 09/25/2018 showed ejection fraction of 60% to 65%, 1 of 3 diastolic dysfunction, elevated right ventricular systolic pressure at 55. b. Resolved with no evidence of acute congestive heart failure as of 2018. 4. Chronic obstructive pulmonary disease with acute exacerbation. a. Complicated by hypoxic respiratory failure, requiring supplemental O2. b. Resolving. Completed IV cefepime on the evening of 10/01/2018. 5. Chronic obstructive pulmonary disease. a. Complicated by hypoxemia, requiring supplemental O2 as of 10/06/2018. 6. Hypertension. 7. Diabetes, type 2. a. Diet-controlled. b. Hemoglobin A1c is 6.1 on 09/30/2018. 8. Generalized osteoarthritis. 9. Trigeminal neuralgia of the right side of the face. a. Controlled on carbamazepine. 10. Gastroesophageal reflux disease. a. Controlled. SUMMARY: The patient is an 83-year-old white female, who has a history of hypertension, diabetes type 2 that is diet controlled, COPD, generalized osteoarthritis, spondylosis of the L-spine, and diastolic dysfunction. The patient was hospitalized at [facility] from 09/24/2018 until 09/29/2018 for shortness of breath secondary to COPD with an acute exacerbation with acute hypoxic respiratory failure and acute on chronic diastolic congestive heart failure. Echocardiogram during that admission showed an EF of 60% to 65%, 1 of 3 diastolic dysfunction, and elevated right ventricular systolic pressure of 55. She responded very well to the antibiotics, steroids, neb treatments, supplemental O2, and IV diuresis. She was left very weak and was transferred to [facility] on 09/30/2018 for physical therapy in an effort to improve her strength, gait, and functional capabilities. HOSPITAL COURSE: The patient was continued on the cefepime for the COPD acute exacerbation that was started at [facility] and completed this on 10/01/2018. Her cough had markedly improved. She had initially a little yellow sputum production that was clearing. Her O2 saturation remained in the mid 90 on supplemental O2 at 2 L, but if she tried to go without the oxygen level, it would drop to 79%. She did well on the O2 and arrangements were made for her to have O2 in the home that she will need to continue to use at all times. She was continued on her neb treatments and the COPD exacerbation gradually resolved. She had no more evidence of acute on chronic diastolic congestive heart failure. Her physical therapy and OT worked with her and she made excellent progress. By the time of her discharge, she was walking 250 feet at least twice a day using a rolling walker with supervision, and at times up to 400 feet. She just had standby assistance for any transfers. The patient's lab studies on admission on 09/30, showed sodium of 143, potassium 4.3, BUN 18, creatinine 0.58, glucose 115. Hemoglobin A1c 6.1. Albumin 3.2. Hemoglobin and hematocrit of 10.7 and 35.4, white cell count of 15,900, with 74% segs, 16% lymphocytes, and a platelet count of 223,000. Her leukocytosis is probably from the recent steroids. The patient was doing very well on 10/06 and condition was felt that she could be now managed at home. Her O2 saturation on 2 L was 94%. She plans on continuing physical therapy at the [facility]. DISPOSITION: DIET: Regular diet, no added salt. ACTIVITIES: Gradually increase activities back to her usual levels. Ambulate with a walker with wheels. Arrangements will be made for her to continue physical therapy at the [facility]. MEDICATIONS: 1. O2 at 2 L by nasal cannula, continuous. 2. DuoNeb by nebulizer four times a day and every 4 hours as needed. 3. Albuterol inhaler two puffs every 6 hours p.r.n. 4. Acetaminophen 325 mg two every 4 hours as needed. 5. Aspirin 81 mg daily. 6. Atorvastatin 20 mg at bedtime. 7. Carbamazepine 200 mg b.i.d. 8. Clonidine 0.2 mg t.i.d. 9. Fish oil 1000 mg daily. 10. Furosemide 40 mg daily. 11. Lisinopril 20 mg b.i.d. 12. Metoprolol tartrate 100 mg b.i.d. 13. Ocuvite with lutein two tablets daily. 14. Pantoprazole 40 mg daily. FOLLOWUP: The patient will be seen in followup in my office in a week. CODE STATUS: Full code. Job ID: [id number] MTDD
== END 2018-10-06 12:01 | disposition home or self-care (01) | DRG 947 ==
LOC: MADMS 18:07 → UNDOADMIN 18:07 → MADMS 09-30 11:08
PROVIDERS: ADMIT Family Medicine; ATTEND Family Medicine
DX: R53.1 Weakness (principal); J96.91 Respiratory failure, unspecified with hypoxia; J44.1 Chronic obstructive pulmonary disease with (acute) exacerbation; I50.32 Chronic diastolic (congestive) heart failure; E11.9 Type 2 diabetes mellitus without complications; M19.90 Unspecified osteoarthritis, unspecified site; E78.00 Pure hypercholesterolemia, unspecified; I11.0 Hypertensive heart disease with heart failure; H40.9 Unspecified glaucoma; K21.9 Gastro-esophageal reflux disease without esophagitis; G50.0 Trigeminal neuralgia; R53.81 Other malaise; Z96.651 Presence of right artificial knee joint; Z96.612 Presence of left artificial shoulder joint; Z85.828 Personal history of other malignant neoplasm of skin; Z79.899 Other long term (current) drug therapy; Z79.82 Long term (current) use of aspirin; Z88.8 Allergy status to other drugs, medicaments and biological substances; Z99.81 Dependence on supplemental oxygen
CPT/HCPCS: 36415; 36416; 80053; 83036; 85025; J0692; J1650; J7050; J7620

== ENCOUNTER 2018-12-25 12:51 | Outpatient (CLI) | payer MEDICARE ==
[2018-12-25 13:27] LABS: Hemoglobin 10.8 g/dL (12.0-16.0); Mean Corpuscular HGB CONC 29.2 g/dL (32.0-36.0); Mean Corpuscular Hemoglobin 25.3 pg (27.0-31.0); Mean Corpuscular Volume 86.4 fL (78.0-98.0); Mean Platelet Volume 8.5 fL (7.4-10.4); Platelet Count 206 thou/uL (130-400); RBC Distribution Width 17.4 % (11.5-14.5); Red Blood Cell (RBC) Count 4.29 mill/uL (4.20-5.40)
[2018-12-25 13:29] LABS: INR-International Normal Ratio 0.9; Prothrombin Time 12.1 SEC (12.0-14.7)
[2018-12-25 13:32] LABS: PTT 22.1 SEC (22.9-36.1)
[2018-12-25 13:41] LABS: ALT (SGPT) 9 U/L (8-55); AST (SGOT) 13 U/L (5-34); Albumin 3.9 g/dL (3.4-4.8); Alkaline Phosphatase 79 U/L (40-150); Anion Gap 12 mmol/L (10-20); BUN (Urea Nitrogen) 12 mg/dL (9.8-20.1); Bilirubin, Total 0.2 mg/dL (0.2-1.2); Calc. Creatinine Clearance 0 mL/min (70-130); Calcium 9.8 mg/dL (7.8-10.44); Carbon Dioxide 32 mmol/L (23-31); Cardiac Risk 3.7 (Less than 4.5); Chloride 103 mmol/L (98-107); Cholesterol 203 mg/dl (< 200 Desired); Estimated GFR-MDRD Greater than 90; Globulin 2.7 g/dL (2.4-3.5); Glucose 114 mg/dL (83-110); HDL Cholesterol 55 mg/dL (>60 Neg Risk); LDL Cholesterol, Calculated 109 mg/dL; Potassium 4.6 mmol/L (3.5-5.1); Protein, Total 6.6 g/dL (6.0-8.3); Sodium 142 mmol/L (136-145); Triglycerides 196 mg/dL (Less than 150)
== END 2018-12-25 12:52 | disposition home or self-care (01) ==
LOC: MADLAB 12:51
PROVIDERS: ATTEND Internal Medicine Cardiovascular Disease
DX: I11.0 Hypertensive heart disease with heart failure (principal); I50.32 Chronic diastolic (congestive) heart failure; J44.9 Chronic obstructive pulmonary disease, unspecified; I27.20 Pulmonary hypertension, unspecified
CPT/HCPCS: 36415; 80053; 80061; 85027; 85610; 85730

== ENCOUNTER 2019-04-09 18:09 | Emergency (ER) | payer MEDICARE ==
[~2019-04-09 18:09] MED LIST: Sodium Chloride 0.9% 100 ML BAG ONE
[2019-04-09] MEDS ORDERED: Cefepime 1 GM VIAL ONE (18:37)
--- NOTE | 2019-04-09 18:51 | RAD ---
EXAM: Portable chest PROVIDED CLINICAL HISTORY: Dyspnea COMPARISON: 09/24/2018 FINDINGS: Cardiac and mediastinal silhouette is within normal limits. No focal consolidation, pleural fluid or pneumothorax evident. Bilateral reticular opacities appear similar to the prior exam. IMPRESSION: No evidence for an acute cardiopulmonary process.
[2019-04-09 19:12] LABS: #Basophils 0.1 thou/uL (0.0-0.2); #Monocytes 1.1 thou/uL (0.11-0.59); #Neutrophils 10.4 thou/uL (1.40-6.50); %Basophils 0.7 % (0.0-1.0); %Eosinophils 0.1 % (0.0-10.0); %Lymphocytes 7.9 % (21.0-51.0); %Monocytes 8.5 % (0.0-10.0); %Neutrophils 82.9 % (42.0-75.0); Anisocytosis SLIGHT = 6-15 cells (100X) (0-5/hpf); Hemoglobin 12.1 g/dL (12.0-16.0); Hypochromia SLIGHT = 6-15 cells (100X) (0-5/hpf); MDiff Complete? YES; Mean Corpuscular HGB CONC 30.4 g/dL (32.0-36.0); Mean Corpuscular Hemoglobin 24.7 pg (27.0-31.0); Mean Corpuscular Volume 81.3 fL (78.0-98.0); Mean Platelet Volume 8.7 fL (7.4-10.4); Platelet Count 207 thou/uL (130-400); Platelet Morphology Comment Appears Adequate; RBC Distribution Width 15.9 % (11.5-14.5); White Blood Cell (WBC) Count 12.5 thou/uL (4.8-10.8)
[2019-04-09 19:15] LABS: ALT (SGPT) 13 U/L (8-55); AST (SGOT) 18 U/L (5-34); Alkaline Phosphatase 104 U/L (40-150); Anion Gap 12 mmol/L (10-20); BUN (Urea Nitrogen) 14 mg/dL (9.8-20.1); Bilirubin, Total 0.2 mg/dL (0.2-1.2); Calc. Creatinine Clearance 0 mL/min (70-130); Calcium 9.4 mg/dL (7.8-10.44); Carbon Dioxide 30 mmol/L (23-31); Chloride 104 mmol/L (98-107); Estimated GFR-MDRD 87; Glucose 175 mg/dL (83-110); Potassium 3.6 mmol/L (3.5-5.1); Sodium 142 mmol/L (136-145)
[2019-04-09 19:19] LABS: Base Excess-Venous 4.3 mmol/L (-2.0 to 3.0); Bicarbonate (HCO3v) 32.6 mmol/L (22.0-28.0); CO2 Tension (PvCO2) 64.3 mmHg (40.0-50.0); Calcium, Ionized 1.28 mmol/L (See Comments:); Chloride 104 mmol/L (98-107); Hemoglobin - Calc 14.3 g/dL (12.0-16.0); Potassium 3.8 mmol/L (3.5-5.1); Sodium 144 mmol/L (138-145); T. Carbon Dioxide 34.6 mmol/L (22.0-28.0); vO2 Saturation-calc 94.5 % (60.0-85.0)
[2019-04-09] MEDS ORDERED: Ipratropium Bromide 2.5 ml Neb ONE (19:37)
[2019-04-09] MEDS ORDERED: Albuterol Sulfate 2.5 mg/0.5 ml Neb ONE (19:37)
[2019-04-09] MEDS ORDERED: methylPREDNISolone Sod Succ/PF 125 MG/2 ML VIAL ONE (19:40)
== END 2019-04-09 20:25 | disposition short-term general hospital (02) ==
LOC: MADERS 18:09
DX: J44.1 Chronic obstructive pulmonary disease with (acute) exacerbation (principal); E78.5 Hyperlipidemia, unspecified; I10 Essential (primary) hypertension; K21.9 Gastro-esophageal reflux disease without esophagitis; Z79.899 Other long term (current) drug therapy
CPT/HCPCS: 36415; 71045; 80053; 82330; 82435; 82803; 83605; 83880; 84132; 84295; 84484; 85014; 85025; 87040; 93005; 96374; 96375; J0692; J2930; J3490; J7611; J7620

== ENCOUNTER 2021-04-03 15:27 | Inpatient (IN) | payer MEDICARE ==
[2021-04-03] MEDS ORDERED: Polyethylene Glycol 3350 17 GM Packet PO PRN (17:47)
[2021-04-03] MEDS ORDERED: Acetaminophen 325 MG TAB PO PRN (17:47)
[2021-04-03] MEDS ORDERED: Benzonatate 100 MG CAP PO PRN (17:47)
[2021-04-03] MEDS ORDERED: Albuterol Sulfate 2.5 mg/3 ml Neb NEB PRN (18:34)
[2021-04-03] MEDS ORDERED: ALPHA D GALACTOSIDASE 150 UNIT PO PRN (18:36)
[2021-04-03] MEDS: hydrALAZINE 25 MG TAB PO SCH (20:12)
[2021-04-03] MEDS: cloNIDine 0.1 MG TAB PO SCH (20:12)
[2021-04-03] MEDS: Lisinopril 20 MG TAB PO SCH (20:12)
[2021-04-03] MEDS: Atorvastatin Calcium 10 MG TAB PO SCH (20:12)
[2021-04-03] MEDS: Mometasone 100 MCG/PUFF (1 INHALER) INH SCH (20:13)
[2021-04-03] MEDS: guaiFENesin ER 600 MG TAB PO SCH (20:13)
[2021-04-03] MEDS: predniSONE 10 MG TAB PO SCH (20:13)
[2021-04-03] MEDS: Metoprolol Tartrate 50 MG TAB PO SCH (20:13)
[2021-04-03] MEDS: carBAMazepine 200 MG TAB PO SCH (20:13)
[2021-04-03] MEDS: Latanoprost 0.005% Ophth Soln 2.5 ml Bottle EA EYE SCH (20:14)
[2021-04-04 05:46] LABS: ALT (SGPT) 15 U/L (8-55); AST (SGOT) 13 U/L (5-34); Albumin 3.2 g/dL (3.4-4.8); Alkaline Phosphatase 54 U/L (40-110); Anion Gap 17 mmol/L (10-20); BUN (Urea Nitrogen) 26 mg/dL (9.8-20.1); Bilirubin, Total 0.4 mg/dL (0.2-1.2); Calc. Creatinine Clearance 63 mL/min (70-130); Calcium 9.5 mg/dL (7.8-10.44); Carbon Dioxide 32 mmol/L (23-31); Globulin 2.2 g/dL (2.4-3.5); Glucose 145 mg/dL (83-110); Protein, Total 5.4 g/dL (5.8-8.1)
[2021-04-04 05:54] LABS: Chloride 98 mmol/L (98-107); Potassium 4.5 mmol/L (3.5-5.1); Sodium 143 mmol/L (136-145)
[2021-04-04 06:05] LABS: #Basophils 0.1 thou/uL (0.0-0.2); #Eosinphils 0.1 thou/uL (0.0-0.7); #Lymphocytes 1.1 thou/uL (1.20-3.40); #Monocytes 0.7 thou/uL (0.11-0.59); %Basophils 0.7 % (0.0-1.0); %Eosinophils 1.1 % (0.0-10.0); %Lymphocytes 8.3 % (21.0-51.0); %Monocytes 5.1 % (0.0-10.0); %Neutrophils 84.8 % (42.0-75.0); Hemoglobin 11.2 g/dL (12.0-16.0); Mean Corpuscular Hemoglobin 26.2 pg (27.0-31.0); Mean Corpuscular Volume 87.5 fL (78.0-98.0); Mean Platelet Volume 12.8 fL (7.4-10.4); Platelet Count 151 thou/uL (130-400); Platelet Morphology Comment Appears Adequate; RBC Distribution Width 16.7 % (11.5-14.5); RBC Morphology Normal; Red Blood Cell (RBC) Count 4.29 mill/uL (4.20-5.40); White Blood Cell (WBC) Count 12.9 thou/uL (4.8-10.8)
[2021-04-04] MEDS: hydrALAZINE 25 MG TAB PO SCH ×3 (08:58→20:19)
[2021-04-04] MEDS: Vit A,C & E/Lutein/Minerals Tablet PO SCH (08:58)
[2021-04-04] MEDS: Enoxaparin Sodium 40 MG/0.4 ML SYRINGE SC SCH (08:58)
[2021-04-04] MEDS: Metoprolol Tartrate 50 MG TAB PO SCH ×2 (08:59→20:22)
[2021-04-04] MEDS: Lisinopril 20 MG TAB PO SCH ×2 (08:59→20:22)
[2021-04-04] MEDS: Fish Oil 1,000 MG CAP PO SCH (08:59)
[2021-04-04] MEDS: carBAMazepine 200 MG TAB PO SCH ×2 (08:59→20:22)
[2021-04-04] MEDS: Furosemide 40 MG TAB PO SCH (08:59)
[2021-04-04] MEDS: Aspirin 81 mg Enteric Coated Tablet PO SCH (09:00)
[2021-04-04] MEDS: cloNIDine 0.1 MG TAB PO SCH ×3 (09:00→20:20)
[2021-04-04] MEDS: predniSONE 10 MG TAB PO SCH ×2 (09:00→20:23)
[2021-04-04] MEDS: guaiFENesin ER 600 MG TAB PO SCH ×2 (09:00→20:22)
[2021-04-04] MEDS: Polyethylene Glycol OPTH DROP 15 ML BOT EA EYE SCH (09:00)
[2021-04-04] MEDS: Mometasone 100 MCG/PUFF (1 INHALER) INH SCH ×2 (09:02→20:23)
[2021-04-04] MEDS: Atorvastatin Calcium 10 MG TAB PO SCH (20:20)
[2021-04-04] MEDS: Latanoprost 0.005% Ophth Soln 2.5 ml Bottle EA EYE SCH (20:22)
[2021-04-05] MEDS: Vit A,C & E/Lutein/Minerals Tablet PO SCH (10:25)
[2021-04-05] MEDS: cloNIDine 0.1 MG TAB PO SCH ×3 (10:25→20:15)
[2021-04-05] MEDS: hydrALAZINE 25 MG TAB PO SCH ×3 (10:25→20:15)
[2021-04-05] MEDS: Aspirin 81 mg Enteric Coated Tablet PO SCH (10:25)
[2021-04-05] MEDS: Furosemide 40 MG TAB PO SCH (10:26)
[2021-04-05] MEDS: guaiFENesin ER 600 MG TAB PO SCH ×2 (10:26→20:17)
[2021-04-05] MEDS: predniSONE 10 MG TAB PO SCH ×2 (10:26→20:17)
[2021-04-05] MEDS: Lisinopril 20 MG TAB PO SCH ×2 (10:26→20:17)
[2021-04-05] MEDS: Fish Oil 1,000 MG CAP PO SCH (10:26)
[2021-04-05] MEDS: Metoprolol Tartrate 50 MG TAB PO SCH ×2 (10:26→20:16)
[2021-04-05] MEDS: carBAMazepine 200 MG TAB PO SCH ×2 (10:26→20:15)
[2021-04-05] MEDS: Polyethylene Glycol OPTH DROP 15 ML BOT EA EYE SCH (10:27)
[2021-04-05] MEDS: Enoxaparin Sodium 40 MG/0.4 ML SYRINGE SC SCH (10:27)
[2021-04-05] MEDS: Mometasone 100 MCG/PUFF (1 INHALER) INH SCH ×2 (10:33→20:16)
[2021-04-05] MEDS: Atorvastatin Calcium 10 MG TAB PO SCH (20:15)
[2021-04-05] MEDS: Latanoprost 0.005% Ophth Soln 2.5 ml Bottle EA EYE SCH (20:22)
[2021-04-06] MEDS: Lisinopril 20 MG TAB PO SCH ×2 (08:15→21:11)
[2021-04-06] MEDS: carBAMazepine 200 MG TAB PO SCH ×2 (08:15→21:12)
[2021-04-06] MEDS: Vit A,C & E/Lutein/Minerals Tablet PO SCH (08:16)
[2021-04-06] MEDS: hydrALAZINE 25 MG TAB PO SCH ×3 (08:16→21:10)
[2021-04-06] MEDS: Fish Oil 1,000 MG CAP PO SCH (08:16)
[2021-04-06] MEDS: Metoprolol Tartrate 50 MG TAB PO SCH ×2 (08:16→21:14)
[2021-04-06] MEDS: predniSONE 10 MG TAB PO SCH ×2 (08:17→21:14)
[2021-04-06] MEDS: guaiFENesin ER 600 MG TAB PO SCH ×2 (08:17→21:13)
[2021-04-06] MEDS: cloNIDine 0.1 MG TAB PO SCH ×3 (08:17→21:10)
[2021-04-06] MEDS: Furosemide 40 MG TAB PO SCH (08:17)
[2021-04-06] MEDS: Enoxaparin Sodium 40 MG/0.4 ML SYRINGE SC SCH (08:17)
[2021-04-06] MEDS: Aspirin 81 mg Enteric Coated Tablet PO SCH (08:17)
[2021-04-06] MEDS: Mometasone 100 MCG/PUFF (1 INHALER) INH SCH ×2 (08:18→21:14)
[2021-04-06] MEDS: Polyethylene Glycol OPTH DROP 15 ML BOT EA EYE SCH (08:19)
[2021-04-06] MEDS: Atorvastatin Calcium 10 MG TAB PO SCH (21:12)
[2021-04-06] MEDS: Latanoprost 0.005% Ophth Soln 2.5 ml Bottle EA EYE SCH (21:13)
[2021-04-07] MEDS: cloNIDine 0.1 MG TAB PO SCH ×3 (08:56→20:08)
[2021-04-07] MEDS: Vit A,C & E/Lutein/Minerals Tablet PO SCH (08:56)
[2021-04-07] MEDS: hydrALAZINE 25 MG TAB PO SCH ×3 (08:56→20:08)
[2021-04-07] MEDS: Enoxaparin Sodium 40 MG/0.4 ML SYRINGE SC SCH (08:56)
[2021-04-07] MEDS: Aspirin 81 mg Enteric Coated Tablet PO SCH (08:56)
[2021-04-07] MEDS: Lisinopril 20 MG TAB PO SCH ×2 (08:57→20:09)
[2021-04-07] MEDS: Metoprolol Tartrate 50 MG TAB PO SCH ×2 (08:57→20:10)
[2021-04-07] MEDS: Furosemide 40 MG TAB PO SCH (08:57)
[2021-04-07] MEDS: carBAMazepine 200 MG TAB PO SCH ×2 (08:57→20:08)
[2021-04-07] MEDS: Fish Oil 1,000 MG CAP PO SCH (08:57)
[2021-04-07] MEDS: guaiFENesin ER 600 MG TAB PO SCH ×2 (08:57→20:07)
[2021-04-07] MEDS: predniSONE 10 MG TAB PO SCH (08:57)
[2021-04-07] MEDS: Polyethylene Glycol OPTH DROP 15 ML BOT EA EYE SCH (09:03)
[2021-04-07] MEDS: Mometasone 100 MCG/PUFF (1 INHALER) INH SCH ×2 (09:04→20:11)
[2021-04-07] MEDS: Atorvastatin Calcium 10 MG TAB PO SCH (20:06)
[2021-04-07] MEDS: Latanoprost 0.005% Ophth Soln 2.5 ml Bottle EA EYE SCH (20:09)
[2021-04-08] MEDS: Vit A,C & E/Lutein/Minerals Tablet PO SCH (08:49)
[2021-04-08] MEDS: Furosemide 40 MG TAB PO SCH (08:49)
[2021-04-08] MEDS: Aspirin 81 mg Enteric Coated Tablet PO SCH (08:50)
[2021-04-08] MEDS: Mometasone 100 MCG/PUFF (1 INHALER) INH SCH ×2 (08:50→21:53)
[2021-04-08] MEDS: Polyethylene Glycol OPTH DROP 15 ML BOT EA EYE SCH (08:51)
[2021-04-08] MEDS: Fish Oil 1,000 MG CAP PO SCH (08:52)
[2021-04-08] MEDS: guaiFENesin ER 600 MG TAB PO SCH ×2 (08:52→21:51)
[2021-04-08] MEDS: predniSONE 10 MG TAB PO SCH (08:53)
[2021-04-08] MEDS: carBAMazepine 200 MG TAB PO SCH ×2 (08:53→21:50)
[2021-04-08] MEDS: Lisinopril 20 MG TAB PO SCH ×2 (08:53→21:51)
[2021-04-08] MEDS: cloNIDine 0.1 MG TAB PO SCH ×3 (08:53→21:52)
[2021-04-08] MEDS: Metoprolol Tartrate 50 MG TAB PO SCH ×2 (08:53→21:51)
[2021-04-08] MEDS: hydrALAZINE 25 MG TAB PO SCH ×3 (08:54→21:53)
[2021-04-08] MEDS: Enoxaparin Sodium 40 MG/0.4 ML SYRINGE SC SCH (08:54)
[2021-04-08] MEDS: Atorvastatin Calcium 10 MG TAB PO SCH (21:50)
[2021-04-08] MEDS: Latanoprost 0.005% Ophth Soln 2.5 ml Bottle EA EYE SCH (21:52)
[2021-04-09] MEDS: Lisinopril 20 MG TAB PO SCH ×2 (09:33→22:20)
[2021-04-09] MEDS: Aspirin 81 mg Enteric Coated Tablet PO SCH (09:33)
[2021-04-09] MEDS: Fish Oil 1,000 MG CAP PO SCH (09:33)
[2021-04-09] MEDS: predniSONE 10 MG TAB PO SCH (09:33)
[2021-04-09] MEDS: carBAMazepine 200 MG TAB PO SCH ×2 (09:33→22:15)
[2021-04-09] MEDS: cloNIDine 0.1 MG TAB PO SCH ×3 (09:33→22:16)
[2021-04-09] MEDS: Vit A,C & E/Lutein/Minerals Tablet PO SCH (09:33)
[2021-04-09] MEDS: guaiFENesin ER 600 MG TAB PO SCH ×2 (09:33→22:16)
[2021-04-09] MEDS: Furosemide 40 MG TAB PO SCH (09:33)
[2021-04-09] MEDS: Metoprolol Tartrate 50 MG TAB PO SCH ×2 (09:34→22:19)
[2021-04-09] MEDS: hydrALAZINE 25 MG TAB PO SCH ×3 (09:34→22:18)
[2021-04-09] MEDS: Enoxaparin Sodium 40 MG/0.4 ML SYRINGE SC SCH (09:35)
[2021-04-09] MEDS: Polyethylene Glycol OPTH DROP 15 ML BOT EA EYE SCH (09:39)
[2021-04-09] MEDS: Mometasone 100 MCG/PUFF (1 INHALER) INH SCH ×2 (09:39→22:20)
[2021-04-09] MEDS: Atorvastatin Calcium 10 MG TAB PO SCH (22:15)
[2021-04-09] MEDS: Latanoprost 0.005% Ophth Soln 2.5 ml Bottle EA EYE SCH (22:19)
[2021-04-10] MEDS: Fish Oil 1,000 MG CAP PO SCH (08:28)
[2021-04-10] MEDS: Vit A,C & E/Lutein/Minerals Tablet PO SCH (08:28)
[2021-04-10] MEDS: Lisinopril 20 MG TAB PO SCH ×2 (08:28→20:21)
[2021-04-10] MEDS: hydrALAZINE 25 MG TAB PO SCH ×3 (08:28→20:20)
[2021-04-10] MEDS: carBAMazepine 200 MG TAB PO SCH ×2 (08:29→20:19)
[2021-04-10] MEDS: Furosemide 40 MG TAB PO SCH (08:29)
[2021-04-10] MEDS: Aspirin 81 mg Enteric Coated Tablet PO SCH (08:29)
[2021-04-10] MEDS: Metoprolol Tartrate 50 MG TAB PO SCH ×2 (08:29→20:21)
[2021-04-10] MEDS: guaiFENesin ER 600 MG TAB PO SCH ×2 (08:29→20:20)
[2021-04-10] MEDS: predniSONE 10 MG TAB PO SCH (08:29)
[2021-04-10] MEDS: cloNIDine 0.1 MG TAB PO SCH ×3 (08:29→20:19)
[2021-04-10] MEDS: Enoxaparin Sodium 40 MG/0.4 ML SYRINGE SC SCH (08:29)
[2021-04-10] MEDS: Polyethylene Glycol OPTH DROP 15 ML BOT EA EYE SCH (08:30)
[2021-04-10] MEDS: Mometasone 100 MCG/PUFF (1 INHALER) INH SCH ×2 (08:30→20:21)
[2021-04-10] MEDS: Atorvastatin Calcium 10 MG TAB PO SCH (20:19)
[2021-04-10] MEDS: Latanoprost 0.005% Ophth Soln 2.5 ml Bottle EA EYE SCH (20:20)
[2021-04-11] MEDS: predniSONE 10 MG TAB PO SCH (08:35)
[2021-04-11] MEDS: Aspirin 81 mg Enteric Coated Tablet PO SCH (08:35)
[2021-04-11] MEDS: hydrALAZINE 25 MG TAB PO SCH ×3 (08:35→20:46)
[2021-04-11] MEDS: Fish Oil 1,000 MG CAP PO SCH (08:35)
[2021-04-11] MEDS: cloNIDine 0.1 MG TAB PO SCH ×3 (08:35→20:46)
[2021-04-11] MEDS: Metoprolol Tartrate 50 MG TAB PO SCH ×2 (08:36→20:43)
[2021-04-11] MEDS: Vit A,C & E/Lutein/Minerals Tablet PO SCH (08:36)
[2021-04-11] MEDS: Lisinopril 20 MG TAB PO SCH ×2 (08:36→20:47)
[2021-04-11] MEDS: carBAMazepine 200 MG TAB PO SCH ×2 (08:36→20:43)
[2021-04-11] MEDS: Furosemide 40 MG TAB PO SCH (08:37)
[2021-04-11] MEDS: Enoxaparin Sodium 40 MG/0.4 ML SYRINGE SC SCH (08:37)
[2021-04-11] MEDS: guaiFENesin ER 600 MG TAB PO SCH ×2 (08:38→20:43)
[2021-04-11] MEDS: Mometasone 100 MCG/PUFF (1 INHALER) INH SCH ×2 (08:39→20:43)
[2021-04-11] MEDS: Polyethylene Glycol OPTH DROP 15 ML BOT EA EYE SCH (08:40)
[2021-04-11] MEDS: Atorvastatin Calcium 10 MG TAB PO SCH (20:43)
[2021-04-11] MEDS: Latanoprost 0.005% Ophth Soln 2.5 ml Bottle EA EYE SCH (20:44)
[2021-04-12] MEDS: Lisinopril 20 MG TAB PO SCH ×2 (08:00→20:28)
[2021-04-12] MEDS: guaiFENesin ER 600 MG TAB PO SCH ×2 (08:44→20:26)
[2021-04-12] MEDS: carBAMazepine 200 MG TAB PO SCH ×2 (08:44→20:26)
[2021-04-12] MEDS: Fish Oil 1,000 MG CAP PO SCH (08:44)
[2021-04-12] MEDS: Aspirin 81 mg Enteric Coated Tablet PO SCH (08:45)
[2021-04-12] MEDS: predniSONE 10 MG TAB PO SCH (08:45)
[2021-04-12] MEDS: Vit A,C & E/Lutein/Minerals Tablet PO SCH (08:45)
[2021-04-12] MEDS: Furosemide 40 MG TAB PO SCH (08:46)
[2021-04-12] MEDS: Mometasone 100 MCG/PUFF (1 INHALER) INH SCH ×2 (08:47→20:23)
[2021-04-12] MEDS: Polyethylene Glycol OPTH DROP 15 ML BOT EA EYE SCH (08:48)
[2021-04-12] MEDS: Metoprolol Tartrate 50 MG TAB PO SCH ×2 (08:53→20:26)
[2021-04-12] MEDS: Enoxaparin Sodium 40 MG/0.4 ML SYRINGE SC SCH (09:19)
[2021-04-12] MEDS: hydrALAZINE 25 MG TAB PO SCH ×3 (09:19→20:27)
[2021-04-12] MEDS: cloNIDine 0.1 MG TAB PO SCH ×3 (09:19→20:27)
[2021-04-12] MEDS: Atorvastatin Calcium 10 MG TAB PO SCH (20:25)
[2021-04-12] MEDS: Latanoprost 0.005% Ophth Soln 2.5 ml Bottle EA EYE SCH (20:25)
[2021-04-13] MEDS: Vit A,C & E/Lutein/Minerals Tablet PO SCH (08:21)
[2021-04-13] MEDS: Fish Oil 1,000 MG CAP PO SCH (08:21)
[2021-04-13] MEDS: Lisinopril 20 MG TAB PO SCH ×2 (08:22→20:58)
[2021-04-13] MEDS: carBAMazepine 200 MG TAB PO SCH ×2 (08:22→20:59)
[2021-04-13] MEDS: guaiFENesin ER 600 MG TAB PO SCH ×2 (08:22→20:58)
[2021-04-13] MEDS: cloNIDine 0.1 MG TAB PO SCH ×3 (08:22→20:54)
[2021-04-13] MEDS: Metoprolol Tartrate 50 MG TAB PO SCH ×2 (08:22→20:58)
[2021-04-13] MEDS: Furosemide 40 MG TAB PO SCH (08:22)
[2021-04-13] MEDS: hydrALAZINE 25 MG TAB PO SCH ×3 (08:22→20:56)
[2021-04-13] MEDS: Aspirin 81 mg Enteric Coated Tablet PO SCH (08:22)
[2021-04-13] MEDS: Polyethylene Glycol OPTH DROP 15 ML BOT EA EYE SCH (08:23)
[2021-04-13] MEDS: Mometasone 100 MCG/PUFF (1 INHALER) INH SCH ×2 (08:23→21:00)
[2021-04-13] MEDS: Atorvastatin Calcium 10 MG TAB PO SCH (20:55)
[2021-04-13] MEDS: Latanoprost 0.005% Ophth Soln 2.5 ml Bottle EA EYE SCH (21:00)
[2021-04-14] MEDS: Fish Oil 1,000 MG CAP PO SCH (07:54)
[2021-04-14] MEDS: Aspirin 81 mg Enteric Coated Tablet PO SCH (07:54)
[2021-04-14] MEDS: Lisinopril 20 MG TAB PO SCH ×2 (07:54→20:46)
[2021-04-14] MEDS: Furosemide 40 MG TAB PO SCH (07:54)
[2021-04-14] MEDS: guaiFENesin ER 600 MG TAB PO SCH ×2 (07:55→20:44)
[2021-04-14] MEDS: cloNIDine 0.1 MG TAB PO SCH ×3 (07:55→20:44)
[2021-04-14] MEDS: hydrALAZINE 25 MG TAB PO SCH ×3 (07:55→20:45)
[2021-04-14] MEDS: Vit A,C & E/Lutein/Minerals Tablet PO SCH (07:55)
[2021-04-14] MEDS: Metoprolol Tartrate 50 MG TAB PO SCH ×2 (07:55→20:47)
[2021-04-14] MEDS: carBAMazepine 200 MG TAB PO SCH ×2 (07:55→20:43)
[2021-04-14] MEDS: Mometasone 100 MCG/PUFF (1 INHALER) INH SCH ×2 (07:56→20:47)
[2021-04-14] MEDS: Polyethylene Glycol OPTH DROP 15 ML BOT EA EYE SCH (07:56)
[2021-04-14] MEDS: Atorvastatin Calcium 10 MG TAB PO SCH (20:43)
[2021-04-14] MEDS: Latanoprost 0.005% Ophth Soln 2.5 ml Bottle EA EYE SCH (20:46)
[2021-04-15] MEDS: Aspirin 81 mg Enteric Coated Tablet PO SCH (08:27)
[2021-04-15] MEDS: carBAMazepine 200 MG TAB PO SCH ×2 (08:28→21:05)
[2021-04-15] MEDS: Fish Oil 1,000 MG CAP PO SCH (08:28)
[2021-04-15] MEDS: Furosemide 40 MG TAB PO SCH (08:29)
[2021-04-15] MEDS: guaiFENesin ER 600 MG TAB PO SCH ×2 (08:30→21:07)
[2021-04-15] MEDS: Vit A,C & E/Lutein/Minerals Tablet PO SCH (08:35)
[2021-04-15] MEDS: Polyethylene Glycol OPTH DROP 15 ML BOT EA EYE SCH (08:35)
[2021-04-15] MEDS: Mometasone 100 MCG/PUFF (1 INHALER) INH SCH ×2 (08:39→21:09)
[2021-04-15] MEDS: Lisinopril 20 MG TAB PO SCH ×2 (08:42→21:09)
[2021-04-15] MEDS: hydrALAZINE 25 MG TAB PO SCH ×3 (08:44→21:08)
[2021-04-15] MEDS: cloNIDine 0.1 MG TAB PO SCH ×3 (08:45→21:07)
[2021-04-15] MEDS: Metoprolol Tartrate 50 MG TAB PO SCH ×2 (08:46→21:09)
[2021-04-15] MEDS: Atorvastatin Calcium 10 MG TAB PO SCH (21:05)
[2021-04-15] MEDS: Latanoprost 0.005% Ophth Soln 2.5 ml Bottle EA EYE SCH (21:18)
[2021-04-16] MEDS: Aspirin 81 mg Enteric Coated Tablet PO SCH (09:40)
[2021-04-16] MEDS: cloNIDine 0.1 MG TAB PO SCH ×3 (09:40→20:16)
[2021-04-16] MEDS: carBAMazepine 200 MG TAB PO SCH ×2 (09:41→20:17)
[2021-04-16] MEDS: Furosemide 40 MG TAB PO SCH (09:41)
[2021-04-16] MEDS: Fish Oil 1,000 MG CAP PO SCH (09:41)
[2021-04-16] MEDS: guaiFENesin ER 600 MG TAB PO SCH ×2 (09:42→20:12)
[2021-04-16] MEDS: hydrALAZINE 25 MG TAB PO SCH ×3 (09:42→20:16)
[2021-04-16] MEDS: Lisinopril 20 MG TAB PO SCH ×2 (09:44→20:15)
[2021-04-16] MEDS: Mometasone 100 MCG/PUFF (1 INHALER) INH SCH ×2 (09:45→20:15)
[2021-04-16] MEDS: Polyethylene Glycol OPTH DROP 15 ML BOT EA EYE SCH (09:45)
[2021-04-16] MEDS: Metoprolol Tartrate 50 MG TAB PO SCH ×2 (09:46→20:14)
[2021-04-16] MEDS: Vit A,C & E/Lutein/Minerals Tablet PO SCH (09:46)
[2021-04-16] MEDS: Ketoconazole 2% Cream 15 gm Tube TOP SCH (09:51)
[2021-04-16] MEDS: Atorvastatin Calcium 10 MG TAB PO SCH (20:11)
[2021-04-16] MEDS: Latanoprost 0.005% Ophth Soln 2.5 ml Bottle EA EYE SCH (20:15)
[2021-04-17] MEDS: Metoprolol Tartrate 50 MG TAB PO SCH ×2 (09:24→20:21)
[2021-04-17] MEDS: Polyethylene Glycol OPTH DROP 15 ML BOT EA EYE SCH (09:24)
[2021-04-17] MEDS: Lisinopril 20 MG TAB PO SCH ×2 (09:24→20:22)
[2021-04-17] MEDS: Aspirin 81 mg Enteric Coated Tablet PO SCH (09:24)
[2021-04-17] MEDS: carBAMazepine 200 MG TAB PO SCH ×2 (09:24→20:23)
[2021-04-17] MEDS: Vit A,C & E/Lutein/Minerals Tablet PO SCH (09:24)
[2021-04-17] MEDS: cloNIDine 0.1 MG TAB PO SCH ×3 (09:24→20:23)
[2021-04-17] MEDS: Furosemide 40 MG TAB PO SCH (09:24)
[2021-04-17] MEDS: guaiFENesin ER 600 MG TAB PO SCH ×2 (09:24→20:22)
[2021-04-17] MEDS: hydrALAZINE 25 MG TAB PO SCH ×3 (09:24→20:22)
[2021-04-17] MEDS: Mometasone 100 MCG/PUFF (1 INHALER) INH SCH ×2 (09:24→20:20)
[2021-04-17] MEDS: Ketoconazole 2% Cream 15 gm Tube TOP SCH (09:24)
[2021-04-17] MEDS: Fish Oil 1,000 MG CAP PO SCH (09:24)
[2021-04-17] MEDS: Latanoprost 0.005% Ophth Soln 2.5 ml Bottle EA EYE SCH (20:20)
[2021-04-17] MEDS: Atorvastatin Calcium 10 MG TAB PO SCH (20:21)
[2021-04-18] MEDS: Polyethylene Glycol OPTH DROP 15 ML BOT EA EYE SCH (09:07)
[2021-04-18] MEDS: Mometasone 100 MCG/PUFF (1 INHALER) INH SCH ×2 (09:07→20:09)
[2021-04-18] MEDS: Ketoconazole 2% Cream 15 gm Tube TOP SCH (09:07)
[2021-04-18] MEDS: Vit A,C & E/Lutein/Minerals Tablet PO SCH (09:08)
[2021-04-18] MEDS: Furosemide 40 MG TAB PO SCH (09:08)
[2021-04-18] MEDS: Metoprolol Tartrate 50 MG TAB PO SCH ×2 (09:08→20:07)
[2021-04-18] MEDS: cloNIDine 0.1 MG TAB PO SCH ×3 (09:08→20:08)
[2021-04-18] MEDS: Fish Oil 1,000 MG CAP PO SCH (09:08)
[2021-04-18] MEDS: hydrALAZINE 25 MG TAB PO SCH ×3 (09:08→20:09)
[2021-04-18] MEDS: Aspirin 81 mg Enteric Coated Tablet PO SCH (09:08)
[2021-04-18] MEDS: carBAMazepine 200 MG TAB PO SCH ×2 (09:09→20:10)
[2021-04-18] MEDS: Lisinopril 20 MG TAB PO SCH ×2 (09:09→20:10)
[2021-04-18] MEDS: guaiFENesin ER 600 MG TAB PO SCH ×2 (09:09→20:07)
[2021-04-18] MEDS: Atorvastatin Calcium 10 MG TAB PO SCH (20:06)
[2021-04-18] MEDS: Latanoprost 0.005% Ophth Soln 2.5 ml Bottle EA EYE SCH (20:09)
[2021-04-19] MEDS: Polyethylene Glycol OPTH DROP 15 ML BOT EA EYE SCH (10:12)
[2021-04-19] MEDS: Vit A,C & E/Lutein/Minerals Tablet PO SCH (10:13)
[2021-04-19] MEDS: Fish Oil 1,000 MG CAP PO SCH (10:13)
[2021-04-19] MEDS: Metoprolol Tartrate 50 MG TAB PO SCH ×2 (10:13→20:57)
[2021-04-19] MEDS: Lisinopril 20 MG TAB PO SCH ×2 (10:14→21:00)
[2021-04-19] MEDS: cloNIDine 0.1 MG TAB PO SCH ×3 (10:14→21:00)
[2021-04-19] MEDS: Furosemide 40 MG TAB PO SCH (10:14)
[2021-04-19] MEDS: carBAMazepine 200 MG TAB PO SCH ×2 (10:14→20:57)
[2021-04-19] MEDS: Aspirin 81 mg Enteric Coated Tablet PO SCH (10:14)
[2021-04-19] MEDS: hydrALAZINE 25 MG TAB PO SCH ×3 (10:14→20:59)
[2021-04-19] MEDS: guaiFENesin ER 600 MG TAB PO SCH ×2 (10:15→20:57)
[2021-04-19] MEDS: Mometasone 100 MCG/PUFF (1 INHALER) INH SCH ×2 (10:18→20:58)
[2021-04-19] MEDS: Ketoconazole 2% Cream 15 gm Tube TOP SCH (10:18)
[2021-04-19] MEDS: Latanoprost 0.005% Ophth Soln 2.5 ml Bottle EA EYE SCH (20:57)
[2021-04-19] MEDS: Atorvastatin Calcium 10 MG TAB PO SCH (20:57)
[2021-04-20] MEDS: Metoprolol Tartrate 50 MG TAB PO SCH ×2 (08:25→20:14)
[2021-04-20] MEDS: hydrALAZINE 25 MG TAB PO SCH ×3 (08:25→20:15)
[2021-04-20] MEDS: Furosemide 40 MG TAB PO SCH (08:25)
[2021-04-20] MEDS: carBAMazepine 200 MG TAB PO SCH ×2 (08:25→20:14)
[2021-04-20] MEDS: Fish Oil 1,000 MG CAP PO SCH (08:25)
[2021-04-20] MEDS: cloNIDine 0.1 MG TAB PO SCH ×3 (08:26→20:15)
[2021-04-20] MEDS: Lisinopril 20 MG TAB PO SCH ×2 (08:26→20:20)
[2021-04-20] MEDS: Aspirin 81 mg Enteric Coated Tablet PO SCH (08:26)
[2021-04-20] MEDS: Vit A,C & E/Lutein/Minerals Tablet PO SCH (08:26)
[2021-04-20] MEDS: guaiFENesin ER 600 MG TAB PO SCH ×2 (08:27→20:14)
[2021-04-20] MEDS: Ketoconazole 2% Cream 15 gm Tube TOP SCH (08:27)
[2021-04-20] MEDS: Polyethylene Glycol OPTH DROP 15 ML BOT EA EYE SCH (08:28)
[2021-04-20] MEDS: Mometasone 100 MCG/PUFF (1 INHALER) INH SCH ×2 (08:29→20:16)
[2021-04-20 10:23] VITALS: BMI 39.9
[2021-04-20] MEDS: Atorvastatin Calcium 10 MG TAB PO SCH (20:14)
[2021-04-20] MEDS: Latanoprost 0.005% Ophth Soln 2.5 ml Bottle EA EYE SCH (20:16)
[2021-04-21] MEDS: Ketoconazole 2% Cream 15 gm Tube TOP SCH (08:14)
[2021-04-21] MEDS: Furosemide 40 MG TAB PO SCH (08:15)
[2021-04-21] MEDS: Fish Oil 1,000 MG CAP PO SCH (08:15)
[2021-04-21] MEDS: guaiFENesin ER 600 MG TAB PO SCH ×2 (08:15→20:05)
[2021-04-21] MEDS: Metoprolol Tartrate 50 MG TAB PO SCH ×2 (08:15→20:05)
[2021-04-21] MEDS: cloNIDine 0.1 MG TAB PO SCH ×3 (08:15→20:04)
[2021-04-21] MEDS: Aspirin 81 mg Enteric Coated Tablet PO SCH (08:16)
[2021-04-21] MEDS: carBAMazepine 200 MG TAB PO SCH ×2 (08:16→20:05)
[2021-04-21] MEDS: hydrALAZINE 25 MG TAB PO SCH ×3 (08:16→20:04)
[2021-04-21] MEDS: Lisinopril 20 MG TAB PO SCH ×2 (08:16→20:06)
[2021-04-21] MEDS: Mometasone 100 MCG/PUFF (1 INHALER) INH SCH ×2 (08:17→20:09)
[2021-04-21] MEDS: Polyethylene Glycol OPTH DROP 15 ML BOT EA EYE SCH (08:18)
[2021-04-21] MEDS: Vit A,C & E/Lutein/Minerals Tablet PO SCH (08:18)
[2021-04-21] MEDS: Latanoprost 0.005% Ophth Soln 2.5 ml Bottle EA EYE SCH (20:06)
[2021-04-21] MEDS: Atorvastatin Calcium 10 MG TAB PO SCH (20:09)
[2021-04-22] MEDS: Fish Oil 1,000 MG CAP PO SCH (09:37)
[2021-04-22] MEDS: Aspirin 81 mg Enteric Coated Tablet PO SCH (09:37)
[2021-04-22] MEDS: Lisinopril 20 MG TAB PO SCH ×2 (09:37→20:32)
[2021-04-22] MEDS: cloNIDine 0.1 MG TAB PO SCH ×3 (09:37→20:30)
[2021-04-22] MEDS: Furosemide 40 MG TAB PO SCH (09:37)
[2021-04-22] MEDS: carBAMazepine 200 MG TAB PO SCH ×2 (09:37→20:31)
[2021-04-22] MEDS: Vit A,C & E/Lutein/Minerals Tablet PO SCH (09:37)
[2021-04-22] MEDS: guaiFENesin ER 600 MG TAB PO SCH ×2 (09:38→20:31)
[2021-04-22] MEDS: Metoprolol Tartrate 50 MG TAB PO SCH ×2 (09:38→20:31)
[2021-04-22] MEDS: hydrALAZINE 25 MG TAB PO SCH ×3 (09:39→20:30)
[2021-04-22] MEDS: Ketoconazole 2% Cream 15 gm Tube TOP SCH (09:39)
[2021-04-22] MEDS: Mometasone 100 MCG/PUFF (1 INHALER) INH SCH ×2 (09:39→20:32)
[2021-04-22] MEDS: Polyethylene Glycol OPTH DROP 15 ML BOT EA EYE SCH (09:41)
[2021-04-22] MEDS: Latanoprost 0.005% Ophth Soln 2.5 ml Bottle EA EYE SCH (20:30)
[2021-04-22] MEDS: Atorvastatin Calcium 10 MG TAB PO SCH (20:31)
[2021-04-23] MEDS: Polyethylene Glycol OPTH DROP 15 ML BOT EA EYE SCH (08:04)
[2021-04-23] MEDS: Ketoconazole 2% Cream 15 gm Tube TOP SCH (08:04)
[2021-04-23] MEDS: cloNIDine 0.1 MG TAB PO SCH ×3 (08:05→20:12)
[2021-04-23] MEDS: Aspirin 81 mg Enteric Coated Tablet PO SCH (08:05)
[2021-04-23] MEDS: hydrALAZINE 25 MG TAB PO SCH ×3 (08:05→20:12)
[2021-04-23] MEDS: Vit A,C & E/Lutein/Minerals Tablet PO SCH (08:05)
[2021-04-23] MEDS: Furosemide 40 MG TAB PO SCH (08:06)
[2021-04-23] MEDS: guaiFENesin ER 600 MG TAB PO SCH ×2 (08:06→20:12)
[2021-04-23] MEDS: Lisinopril 20 MG TAB PO SCH ×2 (08:06→20:13)
[2021-04-23] MEDS: carBAMazepine 200 MG TAB PO SCH ×2 (08:06→20:12)
[2021-04-23] MEDS: Metoprolol Tartrate 50 MG TAB PO SCH ×2 (08:06→20:14)
[2021-04-23] MEDS: Fish Oil 1,000 MG CAP PO SCH (08:06)
[2021-04-23] MEDS: Mometasone 100 MCG/PUFF (1 INHALER) INH SCH ×2 (08:14→20:10)
[2021-04-23] MEDS: Latanoprost 0.005% Ophth Soln 2.5 ml Bottle EA EYE SCH (20:10)
[2021-04-23] MEDS: Atorvastatin Calcium 10 MG TAB PO SCH (20:11)
[2021-04-24 08:44] VITALS: BP 129/73; TEMP 98.5
[2021-04-24] MEDS: Mometasone 100 MCG/PUFF (1 INHALER) INH SCH (09:04)
[2021-04-24] MEDS: Vit A,C & E/Lutein/Minerals Tablet PO SCH (09:05)
[2021-04-24] MEDS: Aspirin 81 mg Enteric Coated Tablet PO SCH (09:05)
[2021-04-24] MEDS: Metoprolol Tartrate 50 MG TAB PO SCH (09:05)
[2021-04-24] MEDS: Polyethylene Glycol OPTH DROP 15 ML BOT EA EYE SCH (09:05)
[2021-04-24] MEDS: guaiFENesin ER 600 MG TAB PO SCH (09:05)
[2021-04-24] MEDS: Furosemide 40 MG TAB PO SCH (09:06)
[2021-04-24] MEDS: carBAMazepine 200 MG TAB PO SCH (09:06)
[2021-04-24] MEDS: Fish Oil 1,000 MG CAP PO SCH (09:07)
[2021-04-24] MEDS: Ketoconazole 2% Cream 15 gm Tube TOP SCH (09:07)
[2021-04-24] MEDS: Lisinopril 20 MG TAB PO SCH (09:08)
[2021-04-24] MEDS: hydrALAZINE 25 MG TAB PO SCH (11:11)
[2021-04-24] MEDS: cloNIDine 0.1 MG TAB PO SCH (11:11)
== END 2021-04-24 13:15 | disposition home health service (06) | DRG 948 ==
LOC: MADMS 16:12
PROVIDERS: ADMIT Family Medicine; ATTEND Family Medicine
DX: R53.81 Other malaise (principal); I50.32 Chronic diastolic (congestive) heart failure; Z68.41 Body mass index [BMI] 40.0-44.9, adult; J96.11 Chronic respiratory failure with hypoxia; E11.9 Type 2 diabetes mellitus without complications; J44.9 Chronic obstructive pulmonary disease, unspecified; M19.90 Unspecified osteoarthritis, unspecified site; H40.9 Unspecified glaucoma; R53.1 Weakness; I11.0 Hypertensive heart disease with heart failure; E66.01 Morbid (severe) obesity due to excess calories; M47.816 Spondylosis without myelopathy or radiculopathy, lumbar region; E78.5 Hyperlipidemia, unspecified; I27.20 Pulmonary hypertension, unspecified; K21.9 Gastro-esophageal reflux disease without esophagitis; Z96.651 Presence of right artificial knee joint; G50.0 Trigeminal neuralgia; Z96.612 Presence of left artificial shoulder joint; L21.9 Seborrheic dermatitis, unspecified; Z98.890 Other specified postprocedural states; Z79.82 Long term (current) use of aspirin; Z79.899 Other long term (current) drug therapy; Z79.51 Long term (current) use of inhaled steroids; Z88.8 Allergy status to other drugs, medicaments and biological substances
CPT/HCPCS: 36415; 80053; 85025; J1650; J7512; J7620

== ENCOUNTER 2023-02-15 14:30 | Inpatient (IN) | payer MEDICARE ==
[2023-02-15 18:42] VITALS: BMI 35.1
[2023-02-15] MEDS ORDERED: Benzonatate 100 MG CAP PO PRN (19:16)
[2023-02-15] MEDS ORDERED: Acetaminophen 325 MG TAB PO PRN (19:16)
[2023-02-15] MEDS ORDERED: Polyethylene Glycol 3350 17 GM Packet PO PRN (19:16)
[2023-02-15] MEDS ORDERED: Albuterol 200 PUFF (6.7GM INHALER) INH PRN (19:16)
[2023-02-15] MEDS ORDERED: Senokot S 8.6-50 MG TAB PO PRN (19:21)
[2023-02-15] MEDS ORDERED: carBAMazepine 200 MG TAB PO SCH (21:00)
[2023-02-15] MEDS ORDERED: Mometasone 100 MCG/PUFF (1 INHALER) INH SCH (21:00)
[2023-02-15] MEDS ORDERED: Atorvastatin Calcium 10 MG TAB PO SCH (21:00)
[2023-02-15] MEDS ORDERED: guaiFENesin ER 600 MG TAB PO SCH (21:00)
[2023-02-15] MEDS ORDERED: Latanoprost 0.005% Ophth Soln 2.5 ml Bottle EA EYE SCH (21:00)
[2023-02-16] MEDS: Ipratropium/Albuterol 3 ML NEB NEB SCH ×2 (00:06→05:32)
[2023-02-16 05:45] LABS: ALT (SGPT) 34 U/L (8-55); AST (SGOT) 19 U/L (5-34); Albumin 3.9 g/dL (3.4-4.8); Alkaline Phosphatase 60 U/L (40-110); Anion Gap 13 mmol/L (10-20); BUN (Urea Nitrogen) 33 mg/dL (9.8-20.1); Bilirubin, Total 0.4 mg/dL (0.2-1.2); Calc. Creatinine Clearance 78 mL/min (70-130); Calcium 10.7 mg/dL (7.8-10.44); Carbon Dioxide 30 mmol/L (23-31); Chloride 103 mmol/L (98-107); Estimated GFR 86; Globulin 2.2 g/dL (2.4-3.5); Glucose 111 mg/dL (83-110); Potassium 3.6 mmol/L (3.5-5.1); Protein, Total 6.1 g/dL (5.8-8.1); Sodium 142 mmol/L (136-145)
[2023-02-16 05:54] LABS: #Basophils 0.1 thou/uL (0.0-0.2); #Eosinphils 0.1 thou/uL (0.0-0.7); #Lymphocytes 1.5 thou/uL (1.20-3.40); #Monocytes 1.4 thou/uL (0.11-0.59); #Neutrophils 13.7 thou/uL (1.40-6.50); %Basophils 0.4 % (0.0-1.0); %Eosinophils 0.8 % (0.0-10.0); %Lymphocytes 9.1 % (21.0-51.0); %Neutrophils 81.8 % (42.0-75.0); Hemoglobin 12.6 g/dL (12.0-16.0); Large Platelets SLIGHT (None Seen); MDiff Complete? YES; Mean Corpuscular HGB CONC 30.6 g/dL (32.0-36.0); Mean Corpuscular Hemoglobin 27.5 pg (27.0-31.0); Mean Corpuscular Volume 90.1 fl (78.0-98.0); Mean Platelet Volume 13.4 fL (7.4-10.4); Platelet Count 161 10x3/uL (130-400); Platelet Morphology Comment Appears Adequate; Red Blood Cell (RBC) Count 4.58 mill/uL (4.20-5.40); White Blood Cell (WBC) Count 16.8 10x3/uL (4.8-10.8)
[2023-02-16 07:20] VITALS: BP 139/67; TEMP 98.2
[2023-02-16] MEDS ORDERED: Furosemide 40 MG TAB PO SCH (09:00)
[2023-02-16] MEDS ORDERED: Polyethylene Glycol OPTH DROP 15 ML BOT EA EYE SCH (09:00)
[2023-02-16] MEDS ORDERED: Aspirin 81 mg Enteric Coated Tablet PO SCH (09:00)
[2023-02-16] MEDS ORDERED: Fish Oil 1,000 MG CAP PO SCH (09:00)
[2023-02-16] MEDS ORDERED: Lisinopril 5 MG TAB PO SCH (09:00)
== END 2023-02-16 08:00 | disposition short-term general hospital (02) | DRG 948 ==
LOC: MADMS 18:20
PROVIDERS: ADMIT Family Medicine; ATTEND Family Medicine
DX: R53.1 Weakness (principal)
CPT/HCPCS: 36416; 80053; 85025; 94640; J7620

== ENCOUNTER 2023-02-16 07:54 | Emergency (ER) | payer MEDICARE ==
[2023-02-16] MEDS ORDERED: Aspirin 300 MG Suppository ONE (08:19)
[2023-02-16] MEDS ORDERED: Heparin 10,000 UNITS/ 10 ML VIAL ONE (08:19)
[2023-02-16 08:30] LABS: ALT (SGPT) 33 U/L (8-55); AST (SGOT) 20 U/L (5-34); Albumin 3.9 g/dL (3.4-4.8); Alkaline Phosphatase 64 U/L (40-110); Anion Gap 16 mmol/L (10-20); BUN (Urea Nitrogen) 34 mg/dL (9.8-20.1); Bilirubin, Total 0.4 mg/dL (0.2-1.2); Calc. Creatinine Clearance 0 mL/min (70-130); Calcium 10.9 mg/dL (7.8-10.44); Carbon Dioxide 27 mmol/L (23-31); Chloride 102 mmol/L (98-107); Estimated GFR 78; Globulin 2.4 g/dL (2.4-3.5); Glucose 184 mg/dL (83-110); Potassium 4.1 mmol/L (3.5-5.1); Protein, Total 6.3 g/dL (5.8-8.1); Sodium 141 mmol/L (136-145)
[2023-02-16 08:34] LABS: CKMB 4.8 ng/mL (0-6.6)
[2023-02-16 08:36] LABS: Hemoglobin 13.6 g/dL (12.0-16.0); MDiff Complete? YES; Manual Diff?? YES; Mean Corpuscular HGB CONC 30.8 g/dL (32.0-36.0); Mean Corpuscular Hemoglobin 27.7 pg (27.0-31.0); Mean Corpuscular Volume 90.1 fl (78.0-98.0); Platelet Count 175 10x3/uL (130-400); RBC Distribution Width 15.8 % (11.5-14.5); Red Blood Cell (RBC) Count 4.92 mill/uL (4.20-5.40); White Blood Cell (WBC) Count 25.1 10x3/uL (4.8-10.8)
[2023-02-16 08:37] LABS: Anisocytosis SLIGHT = 6-15 cells (100X) (0-5/hpf); Band 2 % (5-11); Lymphocytes 13 % (21-51); Monocytes 2 % (0-10); Neutrophil 80 % (42-75); Platelet Morphology Comment Appears Adequate
[2023-02-16 08:43] LABS: Magnesium 2.4 mg/dL (1.6-2.6)
[2023-02-16 08:51] LABS: Prothrombin Time 13.6 sec (12.0-14.7)
[2023-02-16 08:52] LABS: PTT 24.2 sec (22.9-36.1)
== END 2023-02-16 08:51 | disposition short-term general hospital (02) ==
LOC: MADERS 07:54
DX: I21.3 ST elevation (STEMI) myocardial infarction of unspecified site (principal)
CPT/HCPCS: 71045; 82553; 83735; 83880; 84484; 85610; 85730; 93005; 94760; J1644

== ENCOUNTER 2023-02-24 14:50 | Inpatient (IN) | payer MEDICARE ==
[2023-02-24] MEDS ORDERED: Albuterol 200 PUFF (6.7GM INHALER) INH PRN (16:55)
[2023-02-24] MEDS ORDERED: Benzonatate 100 MG CAP PO PRN (16:55)
[2023-02-24] MEDS ORDERED: Senokot S 8.6-50 MG TAB PO PRN (16:55)
[2023-02-24] MEDS ORDERED: Polyethylene Glycol 3350 17 GM Packet PO PRN (16:55)
[2023-02-24] MEDS ORDERED: Lantiseptic Ointment 130 GM JAR TOP PRN (17:15)
[2023-02-24] MEDS ORDERED: ALPHA D GALACTOSIDASE 150 UNIT PO PRN (17:27)
[2023-02-24] MEDS: Ipratropium/Albuterol 3 ML NEB NEB SCH (17:35)
[2023-02-24] MEDS: Atorvastatin Calcium 10 MG TAB PO SCH (21:01)
[2023-02-24] MEDS: carBAMazepine 200 MG TAB PO SCH (21:01)
[2023-02-24] MEDS: Amoxicillin/Potassium Clav 875 MG TAB PO SCH (21:01)
[2023-02-24] MEDS: Apixaban 5 MG TAB PO SCH (21:01)
[2023-02-24] MEDS: Mometasone 100 MCG/PUFF (1 INHALER) INH SCH (21:02)
[2023-02-24] MEDS: Latanoprost 0.005% Ophth Soln 2.5 ml Bottle EA EYE SCH (21:02)
[2023-02-24] MEDS: Lantiseptic Ointment 130 GM JAR TOP SCH (21:03)
[2023-02-25] MEDS: Ipratropium/Albuterol 3 ML NEB NEB SCH ×5 (00:16→23:28)
[2023-02-25] MEDS: Ketoconazole 2% Cream 15 gm Tube TOP SCH (08:31)
[2023-02-25] MEDS: Apixaban 5 MG TAB PO SCH ×2 (08:31→21:22)
[2023-02-25] MEDS: Amoxicillin/Potassium Clav 875 MG TAB PO SCH ×2 (08:31→21:22)
[2023-02-25] MEDS: Vit A,C & E/Lutein/Minerals Tablet PO SCH (08:31)
[2023-02-25] MEDS: Furosemide 40 MG TAB PO SCH (08:31)
[2023-02-25] MEDS: Aspirin 81 mg Enteric Coated Tablet PO SCH (08:32)
[2023-02-25] MEDS: Mometasone 100 MCG/PUFF (1 INHALER) INH SCH ×2 (08:32→21:26)
[2023-02-25] MEDS: Lantiseptic Ointment 130 GM JAR TOP SCH ×2 (08:32→21:23)
[2023-02-25] MEDS: carBAMazepine 200 MG TAB PO SCH ×2 (08:32→21:22)
[2023-02-25] MEDS: Lisinopril 5 MG TAB PO SCH (08:32)
[2023-02-25] MEDS: Fish Oil 1,000 MG CAP PO SCH (08:32)
[2023-02-25] MEDS: Saccharomyces boulardii 250 MG CAP PO SCH (08:32)
[2023-02-25] MEDS ORDERED: Polyethylene Glycol OPTH DROP 15 ML BOT EA EYE SCH (09:00)
[2023-02-25] MEDS: [UNRECOGNIZED DRUG - OTHER] EA EYE SCH (11:00)
[2023-02-25] MEDS: POLYETHYLENE GLYCOL EA EYE SCH (11:00)
[2023-02-25] MEDS: OPTH EA EYE SCH (11:00)
[2023-02-25] MEDS: Atorvastatin Calcium 10 MG TAB PO SCH (21:22)
[2023-02-25] MEDS: Latanoprost 0.005% Ophth Soln 2.5 ml Bottle EA EYE SCH (21:26)
[2023-02-26] MEDS: Ipratropium/Albuterol 3 ML NEB NEB SCH ×3 (05:27→17:38)
[2023-02-26] MEDS: Apixaban 5 MG TAB PO SCH ×2 (08:53→21:26)
[2023-02-26] MEDS: Amoxicillin/Potassium Clav 875 MG TAB PO SCH ×2 (08:53→21:26)
[2023-02-26] MEDS: Fish Oil 1,000 MG CAP PO SCH (08:53)
[2023-02-26] MEDS: Vit A,C & E/Lutein/Minerals Tablet PO SCH (08:53)
[2023-02-26] MEDS: carBAMazepine 200 MG TAB PO SCH ×2 (08:53→21:26)
[2023-02-26] MEDS: Mometasone 100 MCG/PUFF (1 INHALER) INH SCH ×2 (08:54→21:25)
[2023-02-26] MEDS: Lisinopril 5 MG TAB PO SCH (08:54)
[2023-02-26] MEDS: Ketoconazole 2% Cream 15 gm Tube TOP SCH (08:54)
[2023-02-26] MEDS: Lantiseptic Ointment 130 GM JAR TOP SCH ×2 (08:54→21:31)
[2023-02-26] MEDS: Furosemide 40 MG TAB PO SCH (08:54)
[2023-02-26] MEDS: Aspirin 81 mg Enteric Coated Tablet PO SCH (08:54)
[2023-02-26] MEDS: Saccharomyces boulardii 250 MG CAP PO SCH (08:56)
[2023-02-26] MEDS: OPTH EA EYE SCH (08:59)
[2023-02-26] MEDS: [UNRECOGNIZED DRUG - OTHER] EA EYE SCH (08:59)
[2023-02-26] MEDS: POLYETHYLENE GLYCOL EA EYE SCH (08:59)
[2023-02-26] MEDS: Latanoprost 0.005% Ophth Soln 2.5 ml Bottle EA EYE SCH (21:25)
[2023-02-26] MEDS: Atorvastatin Calcium 10 MG TAB PO SCH (21:26)
[2023-02-27] MEDS: Ipratropium/Albuterol 3 ML NEB NEB SCH ×4 (00:41→17:36)
[2023-02-27] MEDS: Fish Oil 1,000 MG CAP PO SCH (08:29)
[2023-02-27] MEDS: carBAMazepine 200 MG TAB PO SCH ×2 (08:30→21:17)
[2023-02-27] MEDS: Aspirin 81 mg Enteric Coated Tablet PO SCH (08:30)
[2023-02-27] MEDS: Saccharomyces boulardii 250 MG CAP PO SCH (08:30)
[2023-02-27] MEDS: Apixaban 5 MG TAB PO SCH ×2 (08:31→21:16)
[2023-02-27] MEDS: Lantiseptic Ointment 130 GM JAR TOP SCH ×2 (08:31→21:18)
[2023-02-27] MEDS: Furosemide 40 MG TAB PO SCH (08:31)
[2023-02-27] MEDS: Amoxicillin/Potassium Clav 875 MG TAB PO SCH (08:31)
[2023-02-27] MEDS: Ketoconazole 2% Cream 15 gm Tube TOP SCH (08:31)
[2023-02-27] MEDS: Mometasone 100 MCG/PUFF (1 INHALER) INH SCH ×2 (08:32→21:17)
[2023-02-27] MEDS: Vit A,C & E/Lutein/Minerals Tablet PO SCH (08:33)
[2023-02-27] MEDS: OPTH EA EYE SCH (08:33)
[2023-02-27] MEDS: [UNRECOGNIZED DRUG - OTHER] EA EYE SCH (08:33)
[2023-02-27] MEDS: POLYETHYLENE GLYCOL EA EYE SCH (08:33)
[2023-02-27] MEDS: Atorvastatin Calcium 10 MG TAB PO SCH (21:16)
[2023-02-27] MEDS: Acetaminophen 325 MG TAB PO PRN (21:17)
[2023-02-27] MEDS: Latanoprost 0.005% Ophth Soln 2.5 ml Bottle EA EYE SCH (21:18)
[2023-02-28] MEDS: Ipratropium/Albuterol 3 ML NEB NEB SCH ×4 (00:04→17:29)
[2023-02-28 05:10] LABS: Hemoglobin 11.4 g/dL (12.0-16.0); Platelet Count 211 10x3/uL (130-400)
[2023-02-28] MEDS: Vit A,C & E/Lutein/Minerals Tablet PO SCH (08:34)
[2023-02-28] MEDS: Saccharomyces boulardii 250 MG CAP PO SCH (08:34)
[2023-02-28] MEDS: Fish Oil 1,000 MG CAP PO SCH (08:34)
[2023-02-28] MEDS: Aspirin 81 mg Enteric Coated Tablet PO SCH (08:34)
[2023-02-28] MEDS: Furosemide 40 MG TAB PO SCH (08:34)
[2023-02-28] MEDS: Lisinopril 5 MG TAB PO SCH (08:34)
[2023-02-28] MEDS: carBAMazepine 200 MG TAB PO SCH ×2 (08:34→21:09)
[2023-02-28] MEDS: Apixaban 5 MG TAB PO SCH ×2 (08:35→21:09)
[2023-02-28] MEDS: Ketoconazole 2% Cream 15 gm Tube TOP SCH (08:35)
[2023-02-28] MEDS: Mometasone 100 MCG/PUFF (1 INHALER) INH SCH ×2 (08:35→21:17)
[2023-02-28] MEDS: Lantiseptic Ointment 130 GM JAR TOP SCH ×2 (08:35→21:11)
[2023-02-28] MEDS: POLYETHYLENE GLYCOL EA EYE SCH (08:36)
[2023-02-28] MEDS: OPTH EA EYE SCH (08:36)
[2023-02-28] MEDS: [UNRECOGNIZED DRUG - OTHER] EA EYE SCH (08:36)
[2023-02-28] MEDS: Acetaminophen 325 MG TAB PO PRN (21:10)
[2023-02-28] MEDS: Atorvastatin Calcium 10 MG TAB PO SCH (21:10)
[2023-02-28] MEDS: Latanoprost 0.005% Ophth Soln 2.5 ml Bottle EA EYE SCH (21:17)
[2023-03-01] MEDS: Ipratropium/Albuterol 3 ML NEB NEB SCH ×4 (00:51→18:00)
[2023-03-01] MEDS: Furosemide 40 MG TAB PO SCH (09:02)
[2023-03-01] MEDS: Saccharomyces boulardii 250 MG CAP PO SCH (09:02)
[2023-03-01] MEDS: Lisinopril 5 MG TAB PO SCH (09:02)
[2023-03-01] MEDS: Fish Oil 1,000 MG CAP PO SCH (09:02)
[2023-03-01] MEDS: Apixaban 5 MG TAB PO SCH ×2 (09:02→21:11)
[2023-03-01] MEDS: [UNRECOGNIZED DRUG - OTHER] EA EYE SCH (09:03)
[2023-03-01] MEDS: POLYETHYLENE GLYCOL EA EYE SCH (09:03)
[2023-03-01] MEDS: carBAMazepine 200 MG TAB PO SCH ×2 (09:03→21:11)
[2023-03-01] MEDS: Mometasone 100 MCG/PUFF (1 INHALER) INH SCH ×2 (09:03→21:11)
[2023-03-01] MEDS: Aspirin 81 mg Enteric Coated Tablet PO SCH (09:03)
[2023-03-01] MEDS: OPTH EA EYE SCH (09:03)
[2023-03-01] MEDS: Ketoconazole 2% Cream 15 gm Tube TOP SCH (09:04)
[2023-03-01] MEDS: Lantiseptic Ointment 130 GM JAR TOP SCH ×2 (09:04→21:12)
[2023-03-01] MEDS: Vit A,C & E/Lutein/Minerals Tablet PO SCH (09:18)
[2023-03-01 15:04] LABS: Anion Gap 14 mmol/L (10-20); BUN (Urea Nitrogen) 23 mg/dL (9.8-20.1); Calc. Creatinine Clearance 93 mL/min (70-130); Calcium 9.8 mg/dL (7.8-10.44); Carbon Dioxide 30 mmol/L (23-31); Chloride 98 mmol/L (98-107); Estimated GFR 89; Glucose 116 mg/dL (83-110); Potassium 4.2 mmol/L (3.5-5.1); Sodium 138 mmol/L (136-145)
[2023-03-01] MEDS: Atorvastatin Calcium 10 MG TAB PO SCH (21:11)
[2023-03-01] MEDS: Latanoprost 0.005% Ophth Soln 2.5 ml Bottle EA EYE SCH (21:12)
[2023-03-02] MEDS: Ipratropium/Albuterol 3 ML NEB NEB SCH ×5 (00:39→23:44)
[2023-03-02] MEDS: Apixaban 5 MG TAB PO SCH ×2 (08:35→20:16)
[2023-03-02] MEDS: Furosemide 40 MG TAB PO SCH (08:35)
[2023-03-02] MEDS: Fish Oil 1,000 MG CAP PO SCH (08:35)
[2023-03-02] MEDS: Vit A,C & E/Lutein/Minerals Tablet PO SCH (08:35)
[2023-03-02] MEDS: carBAMazepine 200 MG TAB PO SCH ×2 (08:36→20:16)
[2023-03-02] MEDS: Lisinopril 5 MG TAB PO SCH (08:36)
[2023-03-02] MEDS: Lantiseptic Ointment 130 GM JAR TOP SCH ×2 (08:36→20:16)
[2023-03-02] MEDS: Aspirin 81 mg Enteric Coated Tablet PO SCH (08:36)
[2023-03-02] MEDS: Mometasone 100 MCG/PUFF (1 INHALER) INH SCH ×2 (08:36→20:16)
[2023-03-02] MEDS: Ketoconazole 2% Cream 15 gm Tube TOP SCH (08:41)
[2023-03-02] MEDS: [UNRECOGNIZED DRUG - OTHER] EA EYE SCH (08:42)
[2023-03-02] MEDS: OPTH EA EYE SCH (08:42)
[2023-03-02] MEDS: Saccharomyces boulardii 250 MG CAP PO SCH (08:42)
[2023-03-02] MEDS: POLYETHYLENE GLYCOL EA EYE SCH (08:42)
[2023-03-02] MEDS: Atorvastatin Calcium 10 MG TAB PO SCH (20:16)
[2023-03-02] MEDS: Latanoprost 0.005% Ophth Soln 2.5 ml Bottle EA EYE SCH (20:18)
[2023-03-03] MEDS: Ipratropium/Albuterol 3 ML NEB NEB SCH ×4 (05:16→23:45)
[2023-03-03] MEDS: [UNRECOGNIZED DRUG - OTHER] EA EYE SCH (08:19)
[2023-03-03] MEDS: POLYETHYLENE GLYCOL EA EYE SCH (08:19)
[2023-03-03] MEDS: OPTH EA EYE SCH (08:19)
[2023-03-03] MEDS: Saccharomyces boulardii 250 MG CAP PO SCH (08:20)
[2023-03-03] MEDS: Mometasone 100 MCG/PUFF (1 INHALER) INH SCH ×2 (08:20→20:32)
[2023-03-03] MEDS: carBAMazepine 200 MG TAB PO SCH ×2 (08:20→20:34)
[2023-03-03] MEDS: Aspirin 81 mg Enteric Coated Tablet PO SCH (08:20)
[2023-03-03] MEDS: Furosemide 40 MG TAB PO SCH (08:20)
[2023-03-03] MEDS: Lisinopril 5 MG TAB PO SCH (08:20)
[2023-03-03] MEDS: Lantiseptic Ointment 130 GM JAR TOP SCH ×2 (08:21→20:37)
[2023-03-03] MEDS: Apixaban 5 MG TAB PO SCH ×2 (08:21→20:34)
[2023-03-03] MEDS: Ketoconazole 2% Cream 15 gm Tube TOP SCH (08:21)
[2023-03-03] MEDS: Fish Oil 1,000 MG CAP PO SCH (08:21)
[2023-03-03] MEDS: Vit A,C & E/Lutein/Minerals Tablet PO SCH (08:22)
[2023-03-03] MEDS: Atorvastatin Calcium 10 MG TAB PO SCH (20:34)
[2023-03-03] MEDS: Latanoprost 0.005% Ophth Soln 2.5 ml Bottle EA EYE SCH (20:34)
[2023-03-04] MEDS: Ipratropium/Albuterol 3 ML NEB NEB SCH ×4 (05:29→23:49)
[2023-03-04] MEDS: Lantiseptic Ointment 130 GM JAR TOP SCH ×2 (08:30→20:53)
[2023-03-04] MEDS: Aspirin 81 mg Enteric Coated Tablet PO SCH (08:30)
[2023-03-04] MEDS: Apixaban 5 MG TAB PO SCH ×2 (08:30→20:52)
[2023-03-04] MEDS: Vit A,C & E/Lutein/Minerals Tablet PO SCH (08:30)
[2023-03-04] MEDS: Furosemide 40 MG TAB PO SCH (08:30)
[2023-03-04] MEDS: carBAMazepine 200 MG TAB PO SCH ×2 (08:30→20:53)
[2023-03-04] MEDS: Lisinopril 5 MG TAB PO SCH (08:30)
[2023-03-04] MEDS: Saccharomyces boulardii 250 MG CAP PO SCH (08:30)
[2023-03-04] MEDS: Ketoconazole 2% Cream 15 gm Tube TOP SCH (08:30)
[2023-03-04] MEDS: [UNRECOGNIZED DRUG - OTHER] EA EYE SCH (08:31)
[2023-03-04] MEDS: OPTH EA EYE SCH (08:31)
[2023-03-04] MEDS: POLYETHYLENE GLYCOL EA EYE SCH (08:31)
[2023-03-04] MEDS: Mometasone 100 MCG/PUFF (1 INHALER) INH SCH ×2 (08:31→20:54)
[2023-03-04] MEDS: Atorvastatin Calcium 10 MG TAB PO SCH (20:52)
[2023-03-04] MEDS: Latanoprost 0.005% Ophth Soln 2.5 ml Bottle EA EYE SCH (20:53)
[2023-03-05] MEDS: Ipratropium/Albuterol 3 ML NEB NEB SCH ×4 (05:13→23:17)
[2023-03-05] MEDS: Mometasone 100 MCG/PUFF (1 INHALER) INH SCH ×2 (07:54→20:40)
[2023-03-05] MEDS: POLYETHYLENE GLYCOL EA EYE SCH (07:54)
[2023-03-05] MEDS: OPTH EA EYE SCH (07:54)
[2023-03-05] MEDS: [UNRECOGNIZED DRUG - OTHER] EA EYE SCH (07:54)
[2023-03-05] MEDS: Vit A,C & E/Lutein/Minerals Tablet PO SCH (07:55)
[2023-03-05] MEDS: Lisinopril 5 MG TAB PO SCH (07:55)
[2023-03-05] MEDS: Aspirin 81 mg Enteric Coated Tablet PO SCH (07:55)
[2023-03-05] MEDS: Apixaban 5 MG TAB PO SCH ×2 (07:55→20:40)
[2023-03-05] MEDS: Furosemide 40 MG TAB PO SCH (07:55)
[2023-03-05] MEDS: Saccharomyces boulardii 250 MG CAP PO SCH (07:55)
[2023-03-05] MEDS: carBAMazepine 200 MG TAB PO SCH ×2 (07:55→20:40)
[2023-03-05] MEDS: Lantiseptic Ointment 130 GM JAR TOP SCH ×2 (07:56→20:41)
[2023-03-05] MEDS: Ketoconazole 2% Cream 15 gm Tube TOP SCH (07:58)
[2023-03-05] MEDS: Latanoprost 0.005% Ophth Soln 2.5 ml Bottle EA EYE SCH (20:40)
[2023-03-05] MEDS: Atorvastatin Calcium 10 MG TAB PO SCH (20:41)
[2023-03-06] MEDS: Ipratropium/Albuterol 3 ML NEB NEB SCH ×4 (04:25→23:47)
[2023-03-06] MEDS: Lisinopril 5 MG TAB PO SCH (09:00)
[2023-03-06] MEDS: Furosemide 40 MG TAB PO SCH (09:00)
[2023-03-06] MEDS: carBAMazepine 200 MG TAB PO SCH ×2 (09:00→20:32)
[2023-03-06] MEDS: Vit A,C & E/Lutein/Minerals Tablet PO SCH (09:01)
[2023-03-06] MEDS: Lantiseptic Ointment 130 GM JAR TOP SCH ×2 (09:01→20:33)
[2023-03-06] MEDS: Saccharomyces boulardii 250 MG CAP PO SCH (09:01)
[2023-03-06] MEDS: Apixaban 5 MG TAB PO SCH ×2 (09:01→20:32)
[2023-03-06] MEDS: Aspirin 81 mg Enteric Coated Tablet PO SCH (09:01)
[2023-03-06] MEDS: [UNRECOGNIZED DRUG - OTHER] EA EYE SCH (09:02)
[2023-03-06] MEDS: OPTH EA EYE SCH (09:02)
[2023-03-06] MEDS: Mometasone 100 MCG/PUFF (1 INHALER) INH SCH ×2 (09:02→20:31)
[2023-03-06] MEDS: POLYETHYLENE GLYCOL EA EYE SCH (09:02)
[2023-03-06] MEDS: Ketoconazole 2% Cream 15 gm Tube TOP SCH (09:30)
[2023-03-06] MEDS: Latanoprost 0.005% Ophth Soln 2.5 ml Bottle EA EYE SCH (20:31)
[2023-03-06] MEDS: Atorvastatin Calcium 10 MG TAB PO SCH (20:32)
[2023-03-07] MEDS: Ipratropium/Albuterol 3 ML NEB NEB SCH ×4 (05:25→23:41)
[2023-03-07] MEDS: Lisinopril 5 MG TAB PO SCH (08:40)
[2023-03-07] MEDS: carBAMazepine 200 MG TAB PO SCH ×2 (08:40→20:18)
[2023-03-07] MEDS: Aspirin 81 mg Enteric Coated Tablet PO SCH (08:40)
[2023-03-07] MEDS: Furosemide 40 MG TAB PO SCH (08:40)
[2023-03-07] MEDS: Mometasone 100 MCG/PUFF (1 INHALER) INH SCH ×2 (08:40→20:18)
[2023-03-07] MEDS: Saccharomyces boulardii 250 MG CAP PO SCH (08:40)
[2023-03-07] MEDS: [UNRECOGNIZED DRUG - OTHER] EA EYE SCH (08:40)
[2023-03-07] MEDS: OPTH EA EYE SCH (08:40)
[2023-03-07] MEDS: POLYETHYLENE GLYCOL EA EYE SCH (08:40)
[2023-03-07] MEDS: Vit A,C & E/Lutein/Minerals Tablet PO SCH (08:41)
[2023-03-07] MEDS: Lantiseptic Ointment 130 GM JAR TOP SCH ×2 (08:47→20:17)
[2023-03-07] MEDS: Ketoconazole 2% Cream 15 gm Tube TOP SCH (08:47)
[2023-03-07] MEDS: Apixaban 5 MG TAB PO SCH ×2 (08:47→20:16)
[2023-03-07] MEDS: Atorvastatin Calcium 10 MG TAB PO SCH (20:16)
[2023-03-07] MEDS: Latanoprost 0.005% Ophth Soln 2.5 ml Bottle EA EYE SCH (20:17)
[2023-03-08 05:19] LABS: Hemoglobin 11.4 g/dL (12.0-16.0); Platelet Count 256 10x3/uL (130-400)
[2023-03-08] MEDS: Ipratropium/Albuterol 3 ML NEB NEB SCH ×3 (05:21→17:52)
[2023-03-08] MEDS: Aspirin 81 mg Enteric Coated Tablet PO SCH (09:53)
[2023-03-08] MEDS: Vit A,C & E/Lutein/Minerals Tablet PO SCH (09:53)
[2023-03-08] MEDS: carBAMazepine 200 MG TAB PO SCH ×2 (09:53→21:41)
[2023-03-08] MEDS: Lisinopril 5 MG TAB PO SCH (09:54)
[2023-03-08] MEDS: Furosemide 40 MG TAB PO SCH (09:54)
[2023-03-08] MEDS: Saccharomyces boulardii 250 MG CAP PO SCH (09:54)
[2023-03-08] MEDS: Mometasone 100 MCG/PUFF (1 INHALER) INH SCH ×2 (09:54→21:45)
[2023-03-08] MEDS: Apixaban 5 MG TAB PO SCH ×2 (09:54→21:41)
[2023-03-08] MEDS: Lantiseptic Ointment 130 GM JAR TOP SCH ×2 (09:57→21:43)
[2023-03-08] MEDS: Ketoconazole 2% Cream 15 gm Tube TOP SCH (09:57)
[2023-03-08] MEDS: OPTH EA EYE SCH (09:58)
[2023-03-08] MEDS: POLYETHYLENE GLYCOL EA EYE SCH (09:58)
[2023-03-08] MEDS: [UNRECOGNIZED DRUG - OTHER] EA EYE SCH (09:58)
[2023-03-08] MEDS: Atorvastatin Calcium 10 MG TAB PO SCH (21:41)
[2023-03-08] MEDS: guaiFENesin ER 600 MG TAB PO PRN (21:42)
[2023-03-08] MEDS: Latanoprost 0.005% Ophth Soln 2.5 ml Bottle EA EYE SCH (21:45)
[2023-03-09] MEDS: Ipratropium/Albuterol 3 ML NEB NEB SCH ×4 (00:06→17:38)
[2023-03-09] MEDS: Ketoconazole 2% Cream 15 gm Tube TOP SCH (08:34)
[2023-03-09] MEDS: carBAMazepine 200 MG TAB PO SCH ×2 (08:34→20:58)
[2023-03-09] MEDS: Furosemide 40 MG TAB PO SCH (08:34)
[2023-03-09] MEDS: Aspirin 81 mg Enteric Coated Tablet PO SCH (08:34)
[2023-03-09] MEDS: Apixaban 5 MG TAB PO SCH ×2 (08:34→20:59)
[2023-03-09] MEDS: Vit A,C & E/Lutein/Minerals Tablet PO SCH (08:35)
[2023-03-09] MEDS: POLYETHYLENE GLYCOL EA EYE SCH (08:35)
[2023-03-09] MEDS: Lisinopril 5 MG TAB PO SCH (08:35)
[2023-03-09] MEDS: OPTH EA EYE SCH (08:35)
[2023-03-09] MEDS: Mometasone 100 MCG/PUFF (1 INHALER) INH SCH ×2 (08:35→20:59)
[2023-03-09] MEDS: [UNRECOGNIZED DRUG - OTHER] EA EYE SCH (08:35)
[2023-03-09] MEDS: Saccharomyces boulardii 250 MG CAP PO SCH (08:35)
[2023-03-09] MEDS: Lantiseptic Ointment 130 GM JAR TOP SCH ×2 (08:36→20:59)
[2023-03-09 11:45] VITALS: BMI 37.0
[2023-03-09] MEDS: Latanoprost 0.005% Ophth Soln 2.5 ml Bottle EA EYE SCH (20:59)
[2023-03-09] MEDS: Atorvastatin Calcium 10 MG TAB PO SCH (20:59)
[2023-03-09] MEDS: guaiFENesin ER 600 MG TAB PO PRN (21:00)
[2023-03-10] MEDS: Ipratropium/Albuterol 3 ML NEB NEB SCH ×3 (00:24→12:47)
[2023-03-10 07:14] VITALS: TEMP 98.2
[2023-03-10] MEDS: Mometasone 100 MCG/PUFF (1 INHALER) INH SCH (08:27)
[2023-03-10] MEDS: Saccharomyces boulardii 250 MG CAP PO SCH (08:28)
[2023-03-10] MEDS: Lisinopril 5 MG TAB PO SCH (08:28)
[2023-03-10] MEDS: Aspirin 81 mg Enteric Coated Tablet PO SCH (08:28)
[2023-03-10] MEDS: Apixaban 5 MG TAB PO SCH (08:28)
[2023-03-10] MEDS: Vit A,C & E/Lutein/Minerals Tablet PO SCH (08:28)
[2023-03-10] MEDS: Furosemide 40 MG TAB PO SCH (08:28)
[2023-03-10] MEDS: carBAMazepine 200 MG TAB PO SCH (08:28)
[2023-03-10] MEDS: Lantiseptic Ointment 130 GM JAR TOP SCH (08:29)
[2023-03-10] MEDS: Ketoconazole 2% Cream 15 gm Tube TOP SCH (08:29)
[2023-03-10] MEDS: OPTH EA EYE SCH (08:33)
[2023-03-10] MEDS: [UNRECOGNIZED DRUG - OTHER] EA EYE SCH (08:33)
[2023-03-10] MEDS: POLYETHYLENE GLYCOL EA EYE SCH (08:33)
[2023-03-10 08:36] VITALS: BP 131/67
== END 2023-03-10 14:15 | DRG 947 ==
LOC: MADMS 14:50
PROVIDERS: ADMIT Family Medicine; ATTEND Family Medicine
DX: R53.81 Other malaise (principal); I21.A1 Myocardial infarction type 2; I26.99 Other pulmonary embolism without acute cor pulmonale; L89.153 Pressure ulcer of sacral region, stage 3; J96.21 Acute and chronic respiratory failure with hypoxia; J96.22 Acute and chronic respiratory failure with hypercapnia; I50.32 Chronic diastolic (congestive) heart failure; I11.0 Hypertensive heart disease with heart failure; Z66 Do not resuscitate; E78.5 Hyperlipidemia, unspecified; I27.20 Pulmonary hypertension, unspecified; J44.9 Chronic obstructive pulmonary disease, unspecified; E66.01 Morbid (severe) obesity due to excess calories; R13.10 Dysphagia, unspecified; Z96.661 Presence of right artificial ankle joint; K21.9 Gastro-esophageal reflux disease without esophagitis; Z98.890 Other specified postprocedural states; Z88.8 Allergy status to other drugs, medicaments and biological substances; Z88.1 Allergy status to other antibiotic agents; Z88.6 Allergy status to analgesic agent; Z68.37 Body mass index [BMI] 37.0-37.9, adult
CPT/HCPCS: 36415; 80048; 82565; 85014; 85018; 85049; J7620

== ENCOUNTER 2023-03-27 15:49 | Emergency (ER) | payer MEDICARE ==
[~2023-03-27 15:49] MED LIST changes: +Iopamidol 370 76% 200 ML VIAL ONE; +Sodium Chloride 0.9% 500 ML BAG ONE
[2023-03-27 16:19] LABS: INR-International Normal Ratio 1.2; Prothrombin Time 15.4 sec (12.0-14.7)
[2023-03-27 16:24] LABS: PTT 22.6 sec (22.9-36.1)
[2023-03-27 16:29] LABS: Hemoglobin 12.8 g/dL (12.0-16.0); Mean Corpuscular HGB CONC 31.4 g/dL (32.0-36.0); Mean Corpuscular Volume 89.3 fl (78.0-98.0); Mean Platelet Volume 11.1 fL (7.4-10.4); Platelet Count 308 10x3/uL (130-400); RBC Distribution Width 15.2 % (11.5-14.5); Red Blood Cell (RBC) Count 4.56 mill/uL (4.20-5.40); White Blood Cell (WBC) Count 22.5 10x3/uL (4.8-10.8)
[2023-03-27 16:31] LABS: ALT (SGPT) 18 U/L (8-55); AST (SGOT) 23 U/L (5-34); Albumin 3.6 g/dL (3.4-4.8); Alkaline Phosphatase 234 U/L (40-110); Anion Gap 15 mmol/L (10-20); BUN (Urea Nitrogen) 16 mg/dL (9.8-20.1); Bilirubin, Total 0.3 mg/dL (0.2-1.2); Calc. Creatinine Clearance 0 mL/min (70-130); Calcium 10.3 mg/dL (7.8-10.44); Carbon Dioxide 30 mmol/L (23-31); Chloride 100 mmol/L (98-107); Estimated GFR 85; Globulin 2.8 g/dL (2.4-3.5); Glucose 159 mg/dL (83-110); Lipase 25 U/L (8-78); Magnesium 1.8 mg/dL (1.6-2.6); Manual Diff?? YES; Potassium 3.8 mmol/L (3.5-5.1); Protein, Total 6.4 g/dL (5.8-8.1); Sodium 141 mmol/L (136-145)
[2023-03-27 16:32] LABS: Eosinophils 2 % (0-10); Monocytes 2 % (0-10)
[2023-03-27 16:33] LABS: Lymphocytes 6 % (21-51)
[2023-03-27 16:34] LABS: Large Platelets SLIGHT (None Seen); MDiff Complete? YES; Neutrophil 84 % (42-75); Reactive Lymphocytes 6 % (0-10)
[2023-03-27 16:35] LABS: Platelet Adequacy Comment Appears Adequate; RBC Morph Comment Within Normal Limits
[2023-03-27] MEDS ORDERED: Aspirin Chewable 81 MG TAB ONE (16:40)
[2023-03-27] MEDS ORDERED: Cefepime 2 GM VIAL ONE (16:41)
[2023-03-27] MEDS ORDERED: Vancomycin 1 GM VIAL ONE (16:41)
[2023-03-27] MEDS ORDERED: Sodium Chloride 0.9% 1,000 ML ONE (16:41)
[2023-03-27 16:46] LABS: CKMB 2.2 ng/mL (0-6.6)
[2023-03-27 18:28] LABS: Bilirubin Negative (Negative); Blood, Urine Large (Negative); Glucose, Urine (Dipstick) Negative (Negative); Ketone, Urine Negative (Negative); Leukocyte Small (Negative); Nitrite Negative (Negative); Protein, Urine (Dipstick) Negative (Neg-Trace); Specific Gravity, Urine 1.015 (1.005-1.030); Urobilinogen 0.2 mg/dL (Less than 2)
[2023-03-27 18:30] LABS: Clarity Hazy (Clear)
[2023-03-27] MEDS ORDERED: Pantoprazole 40 MG VIAL ONE (18:33)
[2023-03-27 18:43] LABS: Bacteria/HPF Rare-Few HPF (None Seen); CAUTI Indications for Culture Dysuria,urgency,freq; RBC/HPF 0-3 HPF (0-3); Squamous Epithelial 0-3 HPF (0-3); WBC/HPF 0-3 HPF (0-3)
[2023-03-27 18:44] LABS: Urine Culture Reflex No No
[2023-03-27] MEDS ORDERED: Ondansetron PF 4 MG/2 ML Vial ONE (18:45)
[2023-03-27 19:12] LABS: Lactic Acid 0.9 mmol/L (0.5-2.2)
[2023-03-27 19:51] LABS: Hemoglobin 12.1 g/dL (12.0-16.0)
== END 2023-03-27 20:20 | disposition short-term general hospital (02) ==
LOC: MADERS 15:49
DX: A41.9 Sepsis, unspecified organism (principal); K92.2 Gastrointestinal hemorrhage, unspecified; J44.9 Chronic obstructive pulmonary disease, unspecified; E66.01 Morbid (severe) obesity due to excess calories; I11.0 Hypertensive heart disease with heart failure; I50.9 Heart failure, unspecified; Z79.899 Other long term (current) drug therapy; Z79.82 Long term (current) use of aspirin
CPT/HCPCS: 0042T; 36415; 36416; 70450; 71045; 80053; 81001; 82274; 82553; 83605; 83690; 83735; 83880; 84484; 85025; 85610; 85730; 87040; 87086; 93005; 94760; 96360; 96361; 96365; 96366; 96375; C9113; J0692; J2405; J3370; J3490; J7030; J7050